=== PATIENT | male | born 1955 | race Caucasian/White ===

== ENCOUNTER 2021-10-26 14:23 | Inpatient (IN) ==
[2021-10-26] MEDS ORDERED: ALBUT/IPRATROP 3MG/0.5MG NEB 3 ML VIAL INH STA (14:57)
[2021-10-26] MEDS ORDERED: methylPREDNISolone 125 MG/2 ML VIAL IV STA ×2 (14:59→17:08)
[2021-10-26 15:17] LABS: Hematocrit (blood only) 44.4 % (42-52); Hemoglobin 15.3 g/dL (14.0-18.0); Mean Corpuscular Hemoglobin 30.8 pg (25-34); Mean Corpuscular Hgb Conc 34.5 g/dL (32-36); Mean Corpuscular Volume 89.5 fL (80-100); Mean Platelet Volume 9.3 fL (7.4-10.4); Platelet Count 296 K/uL (130-400); RDW Coefficient of Variation 13.3 % (11.5-14.5); RDW Standard Deviation 43.6 fL (36.4-46.3); Red Blood Count 4.96 M/uL (4.7-6.1); White Blood Count 22.19 K/uL (4.8-10.8)
--- NOTE | 2021-10-26 15:28 | Emergency Department Note ---
Impression & Plan Acute exacerbation of chronic obstructive pulmonary disease, Hypoxia, Lumbar contusion, Fall ED Provider Note NAME: GALO WAGONER AGE: 66 SEX: M : 1955 ARRIVES VIA: Ambulance INFORMANT: Patient, EMS ED PROVIDER(S): Brody Hendricks DO CHIEF COMPLAINT: Fall HPI: the patient is a 66-year-old male who was walking through the yard when he slipped and fell. The patient fell directly onto his back. He is complaining of low back pain. He called 911 and presented to the emergency department but he started also to develop very severe shortness of breath. He felt very diaphoretic. He states he has significant pain in his lower back but also complains of difficulty getting a deep breath. He denies having any fever. He is treated for COPD. He states he has been compliant with his usual medications. He does complain of cough which is nonproductive. He denies having any hemoptysis. He states the pain in his back is worse with any movement. He denies having any lower extremity swelling. He does not use tobacco products any further. ROS: See above HPI for pertinent positives & negatives. A total of 10 systems reviewed and were otherwise negative. PAST MEDICAL HISTORY: See Below PAST SURGICAL HISTORY: See Below FAMILY HISTORY: See Below SOCIAL HISTORY: See Below HOME MEDICATIONS: See Below ALLERGIES: See Below VITALS: See Below PHYSICAL EXAMINATION: GENERAL: The patient is awake and alert. The patient is very anxious appearing. He appears to be having some respiratory difficulty. EYES: The conjunctivae are clear. The pupils are round and reactive. EARS, NOSE, MOUTH AND THROAT: The nose is without any evidence of any deformity. NECK: The neck is nontender and supple. RESPIRATORY: Diminished breath sounds are noted throughout. Significant conversational dyspnea was appreciated. Pursed lip breathing was noted. CARDIOVASCULAR: Regular rate and rhythm noted there no murmurs rubs or gallops normal S1 normal S2. GASTROINTESTINAL: The abdomen is soft. Abdomen is nontender. BACK: There is diffuse tenderness through the lumbar spine. There is no step-off. Range of motion elicited pain. There was no tenderness appreciated in the upper spine including the thoracic spine. MUSCULOSKELETAL/EXTREMITIES: There is no evidence of gross deformity full range of motion is noted in the hips and shoulders. SKIN: There is no obvious evidence of any rash. There are no petechiae, pallor or cyanosis noted. NEUROLOGIC: Patient is awake alert and oriented x3 MEDICAL DECISION MAKING: The patient is a 66-year-old male who presented to emergency department after a fall. The patient fell backwards. He did have an injury to his back but mostly was here because of shortness of breath. He was hypoxic. His history and physical exam appear to be consistent with COPD at this time. He was treated with bronchodilator therapy and steroids. He was also given IV fluids. Given the degree of his hypoxia and respiratory distress [facility] They have agreed to evaluate the patient in the emergency department. He was reevaluated multiple times. On subsequent reevaluation was significantly improved. Triage Nursing notes reviewed. Prior medical records reviewed Vital Signs: reviewed and remarkable for initial hypoxia and tachycardia. Differential diagnosis: Reactive airway disease, pneumonia, pneumothorax, COPD, CHF, infections, cardiac ischemia, pulmonary embolism, musculoskeletal, gastrointestinal, as well as other pathologies. ER treatment provided: See below Diagnostics interpreted by me: ECG: EKG was obtained in the emergency department. My interpretation is sinus rhythm at 100 bpm. No PVCs were noted. Inferior and low lateral ST depressions were appreciated. An incomplete right bundle branch block pattern was noted. This was compared to a tracing from November [id number]. No changes were noted. Cardiac Monitoring: An order was placed for continuous cardiac monitoring. The monitor shows a rate of 108 bpm with sinus tachycardia. Laboratory studies: As stated above and show below. Imaging studies: See below Consultation(s): The case was discussed with Dr. Duke who [facility]. Past Med/Surg History Medical History (Updated 10/26/21 @ 18:54 by Brody Hendricks DO) Cardiac defibrillator in place Cardiomyopathy COPD (chronic obstructive pulmonary disease) Emphysema of lung Pneumonia Severe sepsis (01/13/14) Surgical History No pertinent past surgical history Family History Other Family history non-contributory Social History (Updated 10/26/21 @ 18:02 by FIDENCIO Coelho) Smoking Status: Former smoker Tobacco Type: Cigarettes packs per day: 2; Years Smoked: 30; Cigarettes Per Day: 20; Hx Alcohol Use: No marital status: current occupational status: retired Feels Safe at Home: Yes Allergies Allergies Allergy/AdvReac Type Severity Reaction Status Date / Time No Known Allergies Allergy Verified 10/26/21 14:36 Home Meds Home Medications Medication Instructions Recorded Confirmed carvedilol 6.25 mg tablet 3.125 mg PO BID 11/11/19 10/26/21 losartan 25 mg tablet 25 mg PO DAILY 11/11/19 10/26/21 spironolactone 25 mg tablet 12.5 mg PO DAILY 11/11/19 10/26/21 tiotropium bromide 2.5 2 puff INHALATION DAILY 11/11/19 10/26/21 mcg/actuation mist for inhalation (Spiriva Respimat) albuterol sulfate 2.5 mg INHALATION QID PRN 10/26/21 10/26/21 albuterol sulfate 90 mcg/actuation 2 puff INHALATION Q6H PRN 10/26/21 10/26/21 aerosol inhaler azithromycin 500 mg tablet 500 mg PO 3XWK 10/26/21 10/26/21 fluticasone 500 mcg-salmeterol 50 1 inh INHALATION BID 10/26/21 10/26/21 mcg/dose blistr powdr for inhalation (Wixela Inhub) Results & Data (ED) Vital Signs Vital Signs - 24 hr 10/26/21 14:32 10/26/21 14:41 10/26/21 15:00 Temperature 36.8 C Temperature Source Oral Pulse Rate 106 H 107 H 97 H Pulse Rate [Left Apical] Pulse Rate from SpO2 Sensor Pulse Rhythm [Left Apical] Pulse Strength [Left Apical] Respiratory Rate 36 H 34 H 35 H Respiratory Effort / Characteristics Accessory Muscle Use Labored Respiratory Depth Deep Respiratory Pattern Regular Blood Pressure 118/75 Blood Pressure [Right Arm] Blood Pressure Mean 89 Blood Pressure Mean [Right Arm] Blood Pressure Position [Right Arm] Pulse Oximetry 96 98 98 Oxygen Delivery Method Nasal Cannula Nasal Cannula Nasal Cannula Oxygen Flow Rate 3 2 2 Sepsis Recent Fever Within 48 Hours No Sepsis New/Unexplained Change in Mental Status N/A Sepsis Action Taken by Nursing No Action Required 10/26/21 15:12 10/26/21 15:24 10/26/21 16:00 Temperature Temperature Source Pulse Rate 106 H 97 H Pulse Rate [Left Apical] 102 H Pulse Rate from SpO2 Sensor 94 H Pulse Rhythm [Left Apical] Regular Pulse Strength [Left Apical] Normal Respiratory Rate 33 H 36 H 29 H Respiratory Effort / Characteristics Short of Breath Respiratory Depth Normal Respiratory Pattern Tachypnea Blood Pressure 107/74 97/70 L Blood Pressure [Right Arm] 107/74 Blood Pressure Mean 85 79 Blood Pressure Mean [Right Arm] 85 Blood Pressure Position [Right Arm] Sitting Pulse Oximetry 94 98 93 Oxygen Delivery Method Nasal Cannula Oxygen Flow Rate 2 Sepsis Recent Fever Within 48 Hours Sepsis New/Unexplained Change in Mental Status Sepsis Action Taken by Nursing 10/26/21 16:07 10/26/21 16:10 10/26/21 17:17 Temperature Temperature Source Pulse Rate Pulse Rate [Left Apical] 107 H 108 H Pulse Rate from SpO2 Sensor Pulse Rhythm [Left Apical] Regular Regular Pulse Strength [Left Apical] Normal Normal Respiratory Rate 32 H 26 H Respiratory Effort / Characteristics Short of Breath Non-Labored Non-Labored Respiratory Depth Shallow Normal Normal Respiratory Pattern Tachypnea Tachypnea Blood Pressure Blood Pressure [Right Arm] 97/68 L 113/74 Blood Pressure Mean Blood Pressure Mean [Right Arm] 77 87 Blood Pressure Position [Right Arm] Sitting Sitting Pulse Oximetry 93 94 Oxygen Delivery Method Room Air Room Air Oxygen Flow Rate Sepsis Recent Fever Within 48 Hours Sepsis New/Unexplained Change in Mental Status Sepsis Action Taken by Care Home Medications Current Medication List: was personally reviewed by me Laboratory Data Attestation: I reviewed the patient's lab results. Result diagrams: 10/26/21 15:10 10/26/21 15:10 Lab Results 10/26/21 10/26/21 10/26/21 Range/Units 15:10 15:10 15:15 WBC 22.19 H (4.8-10.8) K/uL RBC 4.96 (4.7-6.1) M/uL Hgb 15.3 (14.0-18.0) g/dL Hct 44.4 (42-52) % MCV 89.5 (80-100) fL MCH 30.8 (25-34) pg MCHC 34.5 (32-36) g/dL RDW Std Deviation 43.6 (36.4-46.3) fL RDW Coeff of Renee 13.3 (11.5-14.5) % Plt Count 296 (130-400) K/uL MPV 9.3 (7.4-10.4) fL Immature Gran % (Auto) 0.5 % Neut % (Auto) 89.8 % Lymph % (Auto) 6.4 % Villalba % (Auto) 3.2 % Eos % (Auto) 0.0 % Baso % (Auto) 0.1 % Neut # (Auto) 19.92 H (1.4-6.5) K/uL Lymph # (Auto) 1.43 (1.2-3.4) K/uL Villalba # (Auto) 0.71 H (0.11-0.59) K/uL Eos # (Auto) 0.00 (0-0.5) K/uL Baso # (Auto) 0.02 (0-0.2) K/uL Immature Gran # (Auto) 0.11 H (0.00-0.02) K/uL Polychromasia 1+ VBG pH (7.36-7.41) VBG pCO2 (38-50) mmHg VBG pO2 mmHg VBG HCO3 mmol/L VBG O2 Saturation % VBG Base Excess mEq/L Barometric Pressure mm/Hg Sodium 135 L (136-145) mmol/L Potassium 4.6 (3.5-5.1) mmol/L Chloride 100 (98-107) mmol/L Carbon Dioxide 26 (21-32) mmol/L Anion Gap 9 (3-11) BUN 19 (6-23) mg/dl Creatinine 0.86 (0.6-1.4) mg/dl Est Cr Clr Drug Dosing 75.2 ml/min Est GFR ( Amer) 104.0 ml/min Est GFR (Non-Af Amer) 89.7 ml/min BUN/Creatinine Ratio 22.1 H (10-20) Glucose 111 H (70-99(Fasting)) mg/dl Calcium 9.0 (8.5-10.1) mg/dl Total Bilirubin 2.3 H (0.2-1.0) mg/dl AST 19 (13-39) U/L ALT 22 (7-52) U/L Alkaline Phosphatase 51 (34-104) U/L Troponin I 0.05 H* (0-0.04) ng/ml Total Protein 6.7 (6.0-8.3) gm/dl Albumin 4.2 (3.4-5.0) gm/dl Globulin 2.5 (2.5-4.0) gm/dl Albumin/Globulin Ratio 1.7 (0.9-2) SARS-CoV-2, RNA, NAAT NEGATIVE (NEGATIVE) 10/26/21 Range/Units 17:50 WBC (4.8-10.8) K/uL RBC (4.7-6.1) M/uL Hgb (14.0-18.0) g/dL Hct (42-52) % MCV (80-100) fL MCH (25-34) pg MCHC (32-36) g/dL RDW Std Deviation (36.4-46.3) fL RDW Coeff of Renee (11.5-14.5) % Plt Count (130-400) K/uL MPV (7.4-10.4) fL Immature Gran % (Auto) % Neut % (Auto) % Lymph % (Auto) % Villalba % (Auto) % Eos % (Auto) % Baso % (Auto) % Neut # (Auto) (1.4-6.5) K/uL Lymph # (Auto) (1.2-3.4) K/uL Villalba # (Auto) (0.11-0.59) K/uL Eos # (Auto) (0-0.5) K/uL Baso # (Auto) (0-0.2) K/uL Immature Gran # (Auto) (0.00-0.02) K/uL Polychromasia VBG pH 7.41 (7.36-7.41) VBG pCO2 41 (38-50) mmHg VBG pO2 39 mmHg VBG HCO3 26 mmol/L VBG O2 Saturation 73.1 % VBG Base Excess 1.0 mEq/L Barometric Pressure 725.8 mm/Hg Sodium (136-145) mmol/L Potassium (3.5-5.1) mmol/L Chloride (98-107) mmol/L Carbon Dioxide (21-32) mmol/L Anion Gap (3-11) BUN (6-23) mg/dl Creatinine (0.6-1.4) mg/dl Est Cr Clr Drug Dosing ml/min Est GFR ( Amer) ml/min Est GFR (Non-Af Amer) ml/min BUN/Creatinine Ratio (10-20) Glucose (70-99(Fasting)) mg/dl Calcium (8.5-10.1) mg/dl Total Bilirubin (0.2-1.0) mg/dl AST (13-39) U/L ALT (7-52) U/L Alkaline Phosphatase (34-104) U/L Troponin I (0-0.04) ng/ml Total Protein (6.0-8.3) gm/dl Albumin (3.4-5.0) gm/dl Globulin (2.5-4.0) gm/dl Albumin/Globulin Ratio (0.9-2) SARS-CoV-2, RNA, NAAT (NEGATIVE) Administered Medications Acetaminophen (Acetaminophen 325 Mg Tab) 650 mg PO Q6 [place] Stop: 11/26/21 06:59 Last Admin: 10/26/21 18:36 Dose: Not Given Documented by: [id number] Discontinued Medications Acetaminophen (Acetaminophen 325 Mg Tab) 650 mg PO NOW STA Stop: 10/26/21 17:36 Last Admin: 10/26/21 17:55 Dose: 650 mg Documented by: [id number] Albuterol (Albut/Ipratrop 3mg/0.5mg Neb 3 Ml Vial) 3 ml INH NOW STA; Protocol Stop: 10/26/21 14:58 Last Admin: 10/26/21 15:18 Dose: 3 ml Documented by: [id number] Albuterol (Albut/Ipratrop 3mg/0.5mg Neb 3 Ml Vial) 3 ml NEB NOW STA; Protocol Stop: 10/26/21 18:05 Last Admin: 10/26/21 18:36 Dose: 3 ml Documented by: [id number] Aspirin (Aspirin Chew 324 Mg) 324 mg PO NOW STA Stop: 10/26/21 15:45 Last Admin: 10/26/21 16:06 Dose: 324 mg Documented by: [id number] Ioversol (Optiray 320 125ml) 118 ml IV ONCE ONE Stop: 10/26/21 18:49 Last Admin: 10/26/21 18:49 Dose: 118 ml Documented by: [id number] Ketorolac Tromethamine (Ketorolac Tromethamine 15 Mg/Ml Vial) 15 mg IV NOW ONE Stop: 10/26/21 17:34 Last Admin: 10/26/21 17:55 Dose: 15 mg Documented by: [id number] Methylprednisolone (Methylprednisolone 125 Mg/2 Ml Vial) 60 mg IV NOW STA Stop: 10/26/21 15:00 Last Admin: 10/26/21 15:18 Dose: 60 mg Documented by: [id number] Methylprednisolone (Methylprednisolone 125 Mg/2 Ml Vial) 60 mg IV NOW STA Stop: 10/26/21 17:09 Last Admin: 10/26/21 17:55 Dose: 60 mg Documented by: [id number] Imaging Data Radiologist's Impression: Chest X-Ray 10/26/21 14:53 XR chest 1V portable HISTORY: Wheezing. Atypical chest pain. short of breath COMPARISON: Chest 11/11/2019. FINDINGS: Severe emphysema is again noted. Increased markings at the lung bases persist and favors vascular crowding from the emphysema. Otherwise, no focal lung consolidations to suggest pneumonia. No evidence for pulmonary edema. The left-sided single lead pacemaker/defibrillator. The heart is normal in size. No pleural effusions. No pneumothorax. There is a 5 mm nodule within the right upper lobe. This remains unchanged. IMPRESSION: 1. No focal lung consolidations to suggest pneumonia. 2. Severe emphysema. 3. A 5 mm right upper lobe nodule, unchanged. ACT 112: Negative or not required by law. Electronically signed by: Willy Lizarraga M.D. 10/26/2021 3:27 PM Lumbar Spine X-Ray 10/26/21 15:27 XR lumbar spine 2-3V CLINICAL HISTORY: Status post fall on ice with low back pain. COMPARISON STUDY: No previous studies for comparison. TECHNIQUE: 3 Views of the lumbar spine FINDINGS: Bones: There is an anterior wedge deformity present of the L1 vertebral body. However, this has the appearance of an old fracture. There is no evidence for definite acute fracture or malalignment. The heights of the remaining lumbar vertebral bodies are maintained. There are no lytic or blastic lesions present. Disc spaces: Mild to moderate disc space narrowing is present from L2 through S1 with endplate cirrhosis and osteophyte formation. Facet joints: Degenerative facet joint disease is also seen throughout the lumbar spine. Soft tissues: The paraspinal soft tissues are within normal limits. IMPRESSION: 1. Evidence for old anterior wedge deformity of L1. No acute abnormality. 2. Degenerative disc and degenerative facet joint disease. ACT 112: Negative or not required by law. Electronically signed by: Isaac Solis M.D. 10/26/2021 4:33 PM Discharge Plan Visit Data Chief Complaint: Shortness of Breath/Dyspnea Stated Complaint: SOB ED Provider: Brody Hendricks ED Midlevel Provider: Kash Gar Discharge Problem: Acute exacerbation of chronic obstructive pulmonary disease, Hypoxia, Lumbar contusion, Fall Patient Disposition: Being Evaluated by Hospitalist Forms Stand Alone Forms: My [facility] Prescriptions Prescriptions: No Action carvedilol 6.25 mg Tablet 3.125 mg PO BID RF: 0 spironolactone 25 mg Tablet 12.5 mg PO DAILY RF: 0 losartan 25 mg Tablet 25 mg PO DAILY RF: 0 Spiriva Respimat 2.5 mcg/actuation Mist 2 puff INHALATION DAILY RF: 0 albuterol sulfate 2.5 mg /3 mL (0.083 %) Solution For Nebulization 2.5 mg INHALATION QID PRN (Reason: Shortness Of Breath) RF: 0 fluticasone propion-salmeterol [Wixela Inhub] 500-50 mcg/dose Blister With Device 1 inh INHALATION BID RF: 0 albuterol sulfate 90 mcg/actuation Hfa Aerosol Inhaler 2 puff INHALATION Q6H PRN (Reason: Shortness Of Breath) RF: 0 azithromycin 500 mg Tablet 500 mg PO 3XWK RF: 0 Referrals Referrals: PCP,NO [Primary Care Provider] -
[2021-10-26 15:38] LABS: Albumin Globulin Ratio 1.7 (0.9-2); Albumin Level 4.2 gm/dl (3.4-5.0); BUN Creatinine Ratio 22.1 (10-20); Bilirubin,Total 2.3 mg/dl (0.2-1.0); Creatinine Clr Calc Pharmacy 75.2 ml/min; Est GFR (Non-African American) 89.7 ml/min; Globulin 2.5 gm/dl (2.5-4.0); Potassium 4.6 mmol/L (3.5-5.1); Total Protein 6.7 gm/dl (6.0-8.3)
[2021-10-26 15:40] LABS: Basophils # (auto) 0.02 K/uL (0-0.2); Basophils % (auto) 0.1 %; Immature Granulocytes # (auto) 0.11 K/uL (0.00-0.02); Immature Granulocytes % (auto) 0.5 %; Lymphocytes # (auto) 1.43 K/uL (1.2-3.4); Lymphocytes % (auto) 6.4 %; Monocytes # (auto) 0.71 K/uL (0.11-0.59); Monocytes % (auto) 3.2 %; Neutrophils # (auto) 19.92 K/uL (1.4-6.5); Neutrophils % (auto) 89.8 %; Polychromasia 1+
[2021-10-26 15:41] LABS: Troponin I 0.05 ng/ml (0-0.04)
[2021-10-26] MEDS ORDERED: ASPIRIN CHEW 324 MG PO STA (15:44)
--- NOTE | 2021-10-26 16:34 | XRay Report ---
XR lumbar spine 2-3V CLINICAL HISTORY: Status post fall on ice with low back pain. COMPARISON STUDY: No previous studies for comparison. TECHNIQUE: 3 Views of the lumbar spine FINDINGS: Bones: There is an anterior wedge deformity present of the L1 vertebral body. However, this has the a ppearance of an old fracture. There is no evidence for definite acute fracture or malalignment. The h eights of the remaining lumbar vertebral bodies are maintained. There are no lytic or blastic lesions present. Disc spaces: Mild to moderate disc space narrowing is present from L2 through S1 with endplate cirrho sis and osteophyte formation. Facet joints: Degenerative facet joint disease is also seen throughout the lumbar spine. Soft tissues: The paraspinal soft tissues are within normal limits. IMPRESSION: 1. Evidence for old anterior wedge deformity of L1. No acute abnormality. 2. Degenerative disc and degenerative facet joint disease. ACT 112: Negative or not required by law. Electronically signed by: Isaac Solis M.D. 10/26/2021 4:33 PM
--- NOTE | 2021-10-26 17:19 | Emergency Department Note ---
ED Visit Note Patient seen with Dr. Hendricks, please see his note for details.
[2021-10-26] MEDS ORDERED: KETOROLAC TROMETHAMINE 15 MG/ML VIAL IV ONE (17:33)
[2021-10-26] MEDS ORDERED: ACETAMINOPHEN 325 MG TAB PO STA (17:35)
--- NOTE | 2021-10-26 17:37 | History & Physical Report ---
Date of Service October 26, 2021 Assessment & Plan (1) Back pain due to injury: Plan: Lumbar/flank back pain following slip and fall on ice - Xray as above with reported as old wedge resection - ? rib fracture vs. renal contusion vs. muscular injury - Toradol 15mg IV x1 now, Tylenol scheduled for 24 hours, Lidoderm patches - UA eval for hematuria - CT scan w/o contrast abd/pelvis- - Compression Deformities T11-T8- age indeterminant- no pinpoint pain on spine i tself- Patient reports history of ~ 3years ago injuring while digging a hole with pain down through his back and into his legs. Not present at this time. (2) COPD (chronic obstructive pulmonary disease): Plan: COPD with acute dyspnea - At this time does not appear to be an acute exacerbation causing his dyspnea, but until pain controlled, can't rule this out - Poor insipiration leading to decrease breath sounds, but with expiratory wheezing bilateral - VBG with normal PH-7.41, normal Co2-41 and HCO3 28 - Continue Methyl pred 40mg IV q8 hour - Scheduled nebulizers for 24 hours - Albuterol/Atrovent neb now - Continue his TID Azithromycin 500mg - no change - Continue Spiriva - Continue Fluticasone (3) Tachypnea: Plan: Tachypnea with Tachycardia- not greatly relieved with - pain medication - CTA PE protocol of the chest - r/o PE- pulmonary contusion- Negative for both - BIPAP/CPAP- 10/5 or CPAP 5/8 whichever patient is able to tolerate better- currently he is on BiPAP and RR decreased to mid teens- 20s. - Follow overnight- he can take off and use for relief of tachypnea and dyspnea (4) Elevated troponin I level: Plan: Likely demand from pain, tachypnea - Trend Troponin - ECG in morning - received ASA 324 mg in EMD - Continue BB (5) Cardiomyopathy: Plan: Chronic- unsure of etiology - Single lead device - ECHO 2013 with EF 40-45% as per HPI - Continue Carvedilol - Continue ARB - Continue Spironolactone (6) Cardiac defibrillator in place: Plan: Single lead device- reports no recent discharges (7) Leukocytosis: Plan: Nuetrophil predominant- likely secondary from fall yesterday - no infectious symptoms or complaints - Afebrile - Follow temperature curve, symptoms - UA pending (8) Acute respiratory failure with hypoxia: History of Present Illness Chief Complaint: fall, difficulty breathing Primary Care Provider: EDUARDA PCP 66 YOM with past medical history of: COPD with severe emphysema, HTN, AICD- single lead, HFrEF, cardiomyopathy. Patient comes to the EMD today for complaints of lower back pain and dyspnea. The pain occurred yesterday as he was going to check on his dog, and slipped on the ice landing on his back, which knocked the wind out of him and he had to lay on the ground a bit to catch his breath before getting up. This patient is dyspneic with shallow breathing with expiratory wheezing. The patient states that he feels short of breath because it hurts when he breathes in. The pain is located on his left side and lower back to hip, hurts when he takes a deep breath in or moves. There is no pain on his spine, but off his paraspinous muscle and SI joint to lower ribs. He denies coughing up any blood and/or difficulty urinating, but urine has been darker since yesterday. For his dyspnea he has only had an increase in his neb use and inhalers over the past 24 hours because of above pain causing dyspnea. He is not on oxygen at home, is not on any oxygen now and currently isn't hypoxic. He reports trying some "old pain medicine that he had left over from previous prescription, but is unsure of what it was or when prescribed. Patient endorses some right center chest burning pain that comes and goes. He describes this as his normal GERD pain, which he states is no different than his normal. He had a Troponin I drawn in the EMD and is at 0.05. His ECG is unchanged. In the EMD the patient had routine CXR and lumbar/sacral x-ray, was given 60mg IV methylpred- followed by another 60mg IV Methlypred for his wheezing, he was given 1 albuterol nebulizer and an aspirin. He had routine labs performed that included Troponin I as above, which revealed a leukocytosis that is neutrophil predominant. Patient will be admitted for pain control, further evaluation of his left sided pain and dyspnea, trending Troponin I, and follow his COPD/respiratory status. Patient had is AICD placed at [facility] for what he reports as fast and slow heart rates. His last ECHO that is available here is from 2013 with EF 0-45% and cardiomyopathy with marked hypokinesis of the anterior and anteroseptal curtis with mild global hypokinesis. COVID NAAT test on admission is: NEGATIVE Allergies Allergy/AdvReac Type Severity Reaction Status Date / Time No Known Allergies Allergy Verified 10/26/21 14:36 Home Medications Medication Instructions Recorded Confirmed Type carvedilol 6.25 mg tablet 3.125 mg PO BID 11/11/19 10/26/21 History losartan 25 mg tablet 25 mg PO DAILY 11/11/19 10/26/21 History spironolactone 25 mg tablet 12.5 mg PO DAILY 11/11/19 10/26/21 History tiotropium bromide 2.5 2 puff INHALATION DAILY 11/11/19 10/26/21 History mcg/actuation mist for inhalation (Spiriva Respimat) albuterol sulfate 2.5 mg INHALATION QID PRN 10/26/21 10/26/21 History albuterol sulfate 90 mcg/actuation 2 puff INHALATION Q6H PRN 10/26/21 10/26/21 History aerosol inhaler azithromycin 500 mg tablet 500 mg PO 3XWK 10/26/21 10/26/21 History fluticasone 500 mcg-salmeterol 50 1 inh INHALATION BID 10/26/21 10/26/21 History mcg/dose blistr powdr for inhalation (Wixela Inhub) prednisone 20 mg tablet 40 mg PO DAILY 4 Days #8 tab 10/27/21 Rx Past Med/Surg History Medical History Cardiac defibrillator in place Cardiomyopathy COPD (chronic obstructive pulmonary disease) Emphysema of lung Pneumonia Severe sepsis (01/13/14) Surgical History No pertinent past surgical history Family History Other Family history non-contributory Social History Smoking Status: Former smoker Tobacco Type: Cigarettes packs per day: 2; Years Smoked: 30; Cigarettes Per Day: 20; Smoking End Date: 2012; Second Hand Exposure: No; Tobacco Cessation Education Requested by Patient: No Hx Alcohol Use: No Hx Substance Use: No Preferred Language: Czech Communication Ability: Effective Undercutter Operator Required: No Beliefs That Will Affect Care: None marital status: Current Living Situation: Family Current Living Situation Comment: Cousin current occupational status: retired Other Information That Helps Us Care for You: No Feels Safe at Home: Yes Safety Concerns: Feels Safe At This Time Assistive Devices: Glasses Review of Systems Review of Systems: REVIEW OF SYSTEMS: Constitutional: No fever, sweats or chills Eyes: No diplopia, no worsening or blurred vision ENT: normal hearing, no trouble swallowing Respiratory: (+) dyspnea, No cough, sputum Cardiovascular: (+) burning, No anginal pain, tightness or palpitations Abdomen: No pain, nausea, vomiting, diarrhea or constipation Musculoskeletal: (+) left sided back/flank pain, NO calf pain, swelling Neurologic: No weakness, numbness/tingling, or balance problems Psychiatric: No anxiety or depression Skin: No rash or itch Physical Exam Physical Exam: PHYSICAL EXAM: General: awake, alert, no apparent distress Head: Normocephalic, atraumatic ENT: PERRLA, EOMI, no pharyngeal exudate, mucous membranes moist Neuro: AAO x 3, speech clear and appropriate, strength intact bilaterally 5/5, sensation intact and equal all extremities and dermatomes, no pronator drift Chest: equal rise and fall of the chest, tachypnea with using abdominal muscles, expiratory wheezing bialteral with decreased air movement in the bases, on RA Cardiac: Regular rate and rhythm, telemetry reviewed, skin warm dry, cap refill <3 seconds, peripheral pulses +2 no JVD, no edema GI: NABS x 4 quadrants, soft, nontender to palpation, no rebound, guarding or tenderness : Spontaneously voiding, no pain, no CVA tenderness, MSK: no pain on center line of back, left sided pain to paraspinus below last rib to SI joint, pain at left upper sacrum, muscles tense on that side Psych: Normal mood and affect Skin: no rash or erythema Results & Data Results & Data ([facility]) Vital Signs (Past 12 Hours) Vital Signs Temp Pulse Pulse Resp BP BP Pulse Ox 10/26/21 17:17 108 H 26 H 113/74 94 10/26/21 16:10 107 H 32 H 97/68 L 93 10/26/21 16:00 97 H 29 H 97/70 L 93 10/26/21 15:24 102 H 36 H 107/74 98 10/26/21 15:12 106 H 33 H 107/74 94 10/26/21 15:00 97 H 35 H 98 10/26/21 14:41 107 H 34 H 98 10/26/21 14:32 36.8 C 106 H 36 H 118/75 96 Laboratory Results Abnormal lab results 10/26/21 10/26/21 Range/Units 15:10 15:10 WBC 22.19 H (4.8-10.8) K/uL Neut # (Auto) 19.92 H (1.4-6.5) K/uL Beckham # (Auto) 0.71 H (0.11-0.59) K/uL Immature Gran # (Auto) 0.11 H (0.00-0.02) K/uL Sodium 135 L (136-145) mmol/L BUN/Creatinine Ratio 22.1 H (10-20) Glucose 111 H (70-99(Fasting)) mg/dl Total Bilirubin 2.3 H (0.2-1.0) mg/dl Troponin I 0.05 H* (0-0.04) ng/ml Diagnostic Findings Chest X-Ray 10/26/21 14:53 XR chest 1V portable HISTORY: Wheezing. Atypical chest pain. short of breath COMPARISON: Chest 11/11/2019. FINDINGS: Severe emphysema is again noted. Increased markings at the lung bases persist and favors vascular crowding from the emphysema. Otherwise, no focal lung consolidations to suggest pneumonia. No evidence for pulmonary edema. The left-sided single lead pacemaker/defibrillator. The heart is normal in size. No pleural effusions. No pneumothorax. There is a 5 mm nodule within the right upper lobe. This remains unchanged. IMPRESSION: 1. No focal lung consolidations to suggest pneumonia. 2. Severe emphysema. 3. A 5 mm right upper lobe nodule, unchanged. ACT 112: Negative or not required by law. Electronically signed by: Willy Lizarraga M.D. 10/26/2021 3:27 PM Lumbar Spine X-Ray 10/26/21 15:27 XR lumbar spine 2-3V CLINICAL HISTORY: Status post fall on ice with low back pain. COMPARISON STUDY: No previous studies for comparison. TECHNIQUE: 3 Views of the lumbar spine FINDINGS: Bones: There is an anterior wedge deformity present of the L1 vertebral body. However, this has the appearance of an old fracture. There is no evidence for definite acute fracture or malalignment. The heights of the remaining lumbar vertebral bodies are maintained. There are no lytic or blastic lesions present. Disc spaces: Mild to moderate disc space narrowing is present from L2 through S1 with endplate cirrhosis and osteophyte formation. Facet joints: Degenerative facet joint disease is also seen throughout the lum bar spine. Soft tissues: The paraspinal soft tissues are within normal limits. IMPRESSION: 1. Evidence for old anterior wedge deformity of L1. No acute abnormality. 2. Degenerative disc and degenerative facet joint disease. ACT 112: Negative or not required by law. Electronically signed by: Isaac Solis M.D. 10/26/2021 4:33 PM Medications Administered Home Medications carvedilol 6.25 mg tablet 3.125 mg PO BID 11/11/19 [History Confirmed 10/26/21] losartan 25 mg tablet 25 mg PO DAILY 11/11/19 [History Confirmed 10/26/21] spironolactone 25 mg tablet 12.5 mg PO DAILY 11/11/19 [History Confirmed 10/26/21] tiotropium bromide 2.5 mcg/actuation mist for inhalation (Spiriva Respimat) 2 puff INHALATION DAILY 11/11/19 [History Confirmed 10/26/21] albuterol sulfate 2.5 mg INHALATION QID PRN 10/26/21 [History Confirmed 10/26/21] albuterol sulfate 90 mcg/actuation aerosol inhaler 2 puff INHALATION Q6H PRN 10/26/21 [History Confirmed 10/26/21] azithromycin 500 mg tablet 500 mg PO 3XWK 10/26/21 [History Confirmed 10/26/21] fluticasone 500 mcg-salmeterol 50 mcg/dose blistr powdr for inhalation (Wixela Inhub) 1 inh INHALATION BID 10/26/21 [History Confirmed 10/26/21] Active Medications Acetaminophen (Acetaminophen 325 Mg Tab) 650 mg PO Q6 [facility] Stop: 11/26/21 06:59 Albuterol (Albut/Ipratrop 3mg/0.5mg Neb 3 Ml Vial) 3 ml NEB NOW STA; Protocol Stop: 10/26/21 18:05 Methylprednisolone (Methylprednisolone 40 Mg/Ml Vial) 40 mg IV Q8 [facility] Stop: 11/25/21 21:59 Discontinued Medications Acetaminophen (Acetaminophen 325 Mg Tab) 650 mg PO NOW STA Stop: 10/26/21 17:36 Last Admin: 10/26/21 17:55 Dose: 650 mg Documented by: [id number] Albuterol (Albut/Ipratrop 3mg/0.5mg Neb 3 Ml Vial) 3 ml INH NOW STA; Protocol Stop: 10/26/21 14:58 Last Admin: 10/26/21 15:18 Dose: 3 ml Documented by: [id number] Aspirin (Aspirin Chew 324 Mg) 324 mg PO NOW STA Stop: 10/26/21 15:45 Last Admin: 10/26/21 16:06 Dose: 324 mg Documented by: [id number] Ketorolac Tromethamine (Ketorolac Tromethamine 15 Mg/Ml Vial) 15 mg IV NOW ONE Stop: 10/26/21 17:34 Last Admin: 10/26/21 17:55 Dose: 15 mg Documented by: [id number] Methylprednisolone (Methylprednisolone 125 Mg/2 Ml Vial) 60 mg IV NOW STA Stop: 10/26/21 15:00 Last Admin: 10/26/21 15:18 Dose: 60 mg Documented by: [id number] Methylprednisolone (Methylprednisolone 125 Mg/2 Ml Vial) 60 mg IV NOW STA Stop: 10/26/21 17:09 Last Admin: 10/26/21 17:55 Dose: 60 mg Documented by: [id number] Additional Comments: Normal sinus rhythm Right bundle branch block Abnormal ECG When compared with ECG of 11-NOV-2019 14:37, Right bundle branch block has replaced Incomplete right bundle branch block Nonspecific T wave abnormality no longer evident in Inferior leads Nonspecific T wave abnormality no longer evident in Lateral leads Code Status & VTE Plan Code Status CODE: FULL VTE: SCDS, Ambulation VTE Prophylaxis Plan VTE Prophylaxis will be ordered: Yes Supervising Physician Co-Signing Physician Notes Attending Attestation and Admit Note: Pt seen/examined, chart reviewed, care plan d/w FIDENCIO Latif. I agree with the rogers components of his documentation. 66yo male with severe COPD, cardiomyopathy / chronic systolic CHF, CAD (??), and ICD presenting with severe left back/left flank pain after slipping on ice at his home yesterday resulting in a fall. Since then he has had progressive dyspnea with minimal cough. He has occasional chest discomfort but most recent episode was while drinking coffee. He denies exertional chest pain. Denies recent illness or prodromal runny nose/URI symptoms. During my assessment he denied any pain. He did state that his breathing was getting worse despite a recent neb treatment. PMH/PSH/allergies/meds/sochx/famhx - reviewed afebrile, mildly tachy, tachypneic gen - thin, acute distress (increased work of breathing) neck - no JVD mouth - MMM heart - heart tones severely diminished/barely audible, s1 s2 lungs - very poor air movement, tachypnea, retractions, accessory muscle use, wheezes b/l; no rales abd - soft NT ND BS+ back - no tenderness to palpation along the c-spine, t-spine, or l-spine; he does have paraspinal pain in the left lumbar region; he has mild left inferior costal margin pain to palpation; there is modest swelling over the muscles of the left paraspinal region vs the right ext - no edema labs reviewed (WBC >20, etc) cxr reviewed CTs pending EKG - my reading - NSR, RBBB, no ST changes u/a pending COVID neg A/P: 1. accidental/mechanical fall (slipped on ice); no preceding near- syncope/syncope, chest pain, etc. 2. left posterior rib pain/flank pain/lumbar paraspinal pain - CTA chest, CT a/p pending to r/o rib fractures, organ injury, renal injury, etc 3. COPD with exacerbation - may just be a coincidence that this happened in the setting of his recent fall, OR - his pain from the fall led to poor inspiratory effort lending itself to COPD flare 4. acute hypoxic resp failure 2nd to #3 5. elevated troponin - scantly elevated; no ST changes on EKG; would trend, but suspect the troponin is myocardial demand ischemia 2nd to #4 and #3 (or even the stress of #1). [id number] his prior echo showed wall motion abnormalities. Need to be sure the elevated troponin is not indicative of recent ACS. When patient was asked about prior CAD history, IN/stents, etc he could give very little details. Would need to [facility] to determine if he has ever had cardiac catheterization, etc. await CTs pain control f/u on urinalysis steroids for #3 bronchodilators recommend placing on BIPAP due to the amount of distress he is having Ryland Duke MD PG Care Time/CCT Total # of Minutes Spent Total Time Spent with Patient: Total time spent is greater than 50% in coordination of care (as documented) at patient's floor/unit and/or counseling patient: Coding Level of Care Code 61801 Initial Inpt Care Lvl 3 Diagnoses Back pain due to injury M54.9 COPD (chronic obstructive pulmonary disease) J44.9 Cardiomyopathy I42.[address] Z95.810 Elevated troponin I level R77.8 Leukocytosis D72.829 Tachypnea R06.82 Acute respiratory failure with hypoxia J96.01
[2021-10-26] MEDS ORDERED: ACETAMINOPHEN 325 MG TAB PO SCH (18:00)
[2021-10-26 18:01] LABS: Oxygen Saturation VBG 73.1 %; pH VBG 7.41 (7.36-7.41)
[2021-10-26] MEDS ORDERED: ALBUT/IPRATROP 3MG/0.5MG NEB 3 ML VIAL NEB STA (18:04)
[2021-10-26] MEDS ORDERED: OPTIRAY 320 125ml IV ONE (18:48)
--- NOTE | 2021-10-26 19:02 | CT Scan Report ---
CT angio chest PE protocol CLINICAL HISTORY: PE TECHNIQUE: Multidetector row helical CT of the chest was performed. Coronal and sagittal reformations were obtained. Coronal and sagittal MIPS were obtained from the axial data set and were submitted fo r review. Automated dose lowering techniques and/or adjustment according to patient size were utiliz ed for this exam. Comparison: None available at the time of this dictation. FINDINGS: Lungs and pleura: Severe emphysematous changes are seen. No suspicious pulmonary nodules are seen. Heart and pericardium: Heart size is normal. No pericardial effusion. Vessels: No evidence of pulmonary embolism. Mediastinum and colette: Unremarkable. Chest wall and lower neck: Unremarkable. Abdomen: A hiatal hernia is seen. Bones: Degenerative changes in the thoracic spine. Compression deformities are seen, which are new at T11 and T8 for chronic at T12. IMPRESSION: 1. No evidence of pulmonary embolism. 2. Severe emphysematous changes. 3. Compression deformities at T11 and T8 are age indeterminate. Correlation with point tenderness is recommended. ACT 112: Negative or not required by law. Electronically signed by: Akash Christianson M.D. 10/26/2021 7:00 PM
--- NOTE | 2021-10-26 19:07 | CT Scan Report ---
CT abd pelvis wo con CLINICAL HISTORY: fall on ice-left sided back/flank pain- TECHNIQUE: Helical axial images of the abdomen and pelvis were obtained. Automated dose lowering tech niques and/or adjustment according to patient size were utilized for this exam. This exam was perfor med without intravenous contrast. COMPARISON: None available at the time of this dictation. FINDINGS: Lower chest: For findings above the diaphragm, please see CT chest performed same day. Liver: Unremarkable. No focal lesions are seen. Gallbladder and biliary tree: No calcified gallstones. Normal caliber wall. No intra- or extrahepatic biliary ductal dilation. Pancreas: Unremarkable, no focal lesions. Spleen: Unremarkable. Adrenals: Unremarkable. Kidneys and ureters: Perinephric stranding is noted bilaterally. Bladder: Minimally hyperdense material is noted in the bladder. Reproductive organs: Prostatomegaly is seen. Bowel: Unremarkable. Lymph nodes Retroperitoneal: Unremarkable. Mesenteric: Subcentimeter lymph nodes are noted. Pelvic: Unremarkable. Peritoneum: Normal. Vessels: Atherosclerotic calcifications are seen. Abdominal wall: Right fat-containing inguinal hernia. Bones: Degenerative changes in the visualized spine. Please see CT thorax with compression deformitie s in the thorax. IMPRESSION: 1. No evidence of acute abnormality and in particular no evidence of fracture. 2. Prostatomegaly. 3. Hyperdense material noted in the bladder, this may be artifactual, correlation with urinalysis is recommended. ACT 112: Negative or not required by law. Electronically signed by: Akash Christianson M.D. 10/26/2021 7:06 PM
[2021-10-26] MEDS ORDERED: ALBUTEROL HFA 8 GM INHALER INH PRN (21:21)
[2021-10-26] MEDS: ALBUTEROL 0.083% NEBU SOLN 3 ML VIAL INH SCH (21:23)
[2021-10-26] MEDS ORDERED: methylPREDNISolone 40 MG in SYRINGE 0 ML IV SCH (22:00)
[2021-10-26] MEDS: carvediloL 3.125 MG TAB PO SCH (22:15)
[2021-10-26] MEDS: LIDOCAINE 5% 1 PATCH TD SCH (22:16)
[2021-10-26] MEDS: ACETAMINOPHEN 325 MG TAB PO SCH (23:08)
[2021-10-27] MEDS: ALBUTEROL 0.083% NEBU SOLN 3 ML VIAL INH SCH ×3 (00:27→11:50)
[2021-10-27] MEDS ORDERED: methylPREDNISolone 40 MG in SYRINGE 0 ML IV SCH (06:00)
[2021-10-27 06:06] LABS: Troponin I 0.03 ng/ml (0-0.04)
[2021-10-27] MEDS: ACETAMINOPHEN 325 MG TAB PO SCH ×2 (06:08→11:32)
[2021-10-27 06:09] LABS: Calcium 8.7 mg/dl (8.5-10.1); Creatinine Clr Calc Pharmacy 62.2 ml/min; Est GFR (African American) 85.7 ml/min; Est GFR (Non-African American) 73.9 ml/min; Magnesium 1.8 mg/dl (1.7-2.4); Potassium 4.2 mmol/L (3.5-5.1)
[2021-10-27 06:23] LABS: Basophils # (auto) 0.01 K/uL (0-0.2); Basophils % (auto) 0.1 %; Hemoglobin 13.9 g/dL (14.0-18.0); Immature Granulocytes # (auto) 0.06 K/uL (0.00-0.02); Immature Granulocytes % (auto) 0.3 %; Mean Corpuscular Hemoglobin 30.3 pg (25-34); Mean Corpuscular Hgb Conc 33.9 g/dL (32-36); Mean Corpuscular Volume 89.3 fL (80-100); Mean Platelet Volume 9.9 fL (7.4-10.4); Monocytes # (auto) 0.22 K/uL (0.11-0.59); Monocytes % (auto) 1.3 %; Neutrophils % (auto) 94.3 %; Platelet Count 301 K/uL (130-400); RDW Coefficient of Variation 13.3 % (11.5-14.5); RDW Standard Deviation 43.6 fL (36.4-46.3); Red Blood Count 4.59 M/uL (4.7-6.1); White Blood Count 17.59 K/uL (4.8-10.8)
[2021-10-27] MEDS: carvediloL 3.125 MG TAB PO SCH (08:11)
[2021-10-27] MEDS: SPIRONOLACTONE 12.5 MG TAB PO SCH ×2 (08:12→08:14)
--- NOTE | 2021-10-27 08:22 | Communication Note ---
Date of Service: October 27, 2021 Informed at 6:24AM about transient vtach x several beats on nurse monitoring, but on PCU monitor, there was concern about afib. I reviewed the telemetry segment and it looks somewhat irregular. Patient does have PVCss. I have ordered a repeat ecg and ordered Mg repletion as it was 1.8 this AM. K was >4.0.
[2021-10-27] MEDS ORDERED: LOSARTAN POTASSIUM 25 MG TAB PO SCH (09:00)
[2021-10-27] MEDS ORDERED: UMECLIDINIUM BROMIDE 62.5MCG/BLISTER 7 PUFFS/INHALER INH SCH (09:00)
[2021-10-27] MEDS ORDERED: FLUTICASONE/VILANTEROL 200/25MCG 14 PUFFS/INHALER INH SCH (09:00)
[2021-10-27 09:06] LABS: Appearance Urine Clear (Clear); Bacteria Urine Automated Negative (Negative); Blood Urine Negative (Negative); Color Urine Dark Yellow; Glucose Urine UA Negative (Negative); Ketones Urine Trace (Negative); Leukocyte Esterase Urine Negative (Negative); Nitrite Urine Negative (Negative); Protein Urine Trace (Negative); RBC Urine Automated 0-4 /hpf (0-4); Specific Gravity Urine > 1.045 (1.000-1.030); Urobilinogen Urine Negative (Negative); pH Urine 5.5 (4.5-7.5)
[2021-10-27 09:07] LABS: Bilirubin Urine 1+ (Negative)
[2021-10-27] MEDS: MAGNESIUM SULFATE / D5W 1 GM/100 ML BAG IV SCH ×2 (09:38→11:32)
--- NOTE | 2021-10-27 16:45 | Discharge Summary ---
Date of Service October 27, 2021 Admission HPI Per Admitting Provider 66 YOM with past medical history of: COPD with severe emphysema, HTN, AICD- single lead, HFrEF, cardiomyopathy. Patient comes to the EMD today for complaints of lower back pain and dyspnea. The pain occurred yesterday as he was going to check on his dog, and slipped on the ice landing on his back, which knocked the wind out of him and he had to lay on the ground a bit to catch his breath before getting up. This patient is dyspneic with shallow breathing with expiratory wheezing. The patient states that he feels short of breath because it hurts when he breathes in. The pain is located on his left side and lower back to hip, hurts when he takes a deep breath in or moves. There is no pain on his spine, but off his paraspinous muscle and SI joint to lower ribs. He denies coughing up any blood and/or difficulty urinating, but urine has been darker since yesterday. For his dyspnea he has only had an increase in his neb use and inhalers over the past 24 hours because of above pain causing dyspnea. He is not on oxygen at home, is not on any oxygen now and currently isn't hypoxic. He reports trying some "old pain medicine that he had left over from previous prescription, but is unsure of what it was or when prescribed. Patient endorses some right center chest burning pain that comes and goes. He describes this as his normal GERD pain, which he states is no different than his normal. He had a Troponin I drawn in the EMD and is at 0.05. His ECG is unchanged. In the EMD the patient had routine CXR and lumbar/sacral x-ray, was given 60mg IV methylpred- followed by another 60mg IV Methlypred for his wheezing, he was given 1 albuterol nebulizer and an aspirin. He had routine labs performed that included Troponin I as above, which revealed a leukocytosis that is neutrophil predominant. Patient will be admitted for pain control, further evaluation of his left sided pain and dyspnea, trending Troponin I, and follow his COPD/respiratory status. Patient had is AICD placed at [facility] for what he reports as fast and slow heart rates. His last ECHO that is available here is from 2013 with EF 0-45% and cardiomyopathy with marked hypokinesis of the anterior and anteroseptal curtis with mild global hypokinesis. COVID NAAT test on admission is: NEGATIVE Principal Diagnosis Musculoskeletal back pain following a fall COPD exacerbation Discharge Exam No current concerns or questions. Pain completely resolved. Breathing at baseline but still having significant benefit from duonebs. Constitutional WD/WN, vitals as above Neck trachea midline, no thyromegaly Respiratory normal respiratory effort, lungs clear to auscultation Auscultation: no wheezes Cardiovascular RRR, no murmur, no edema Musculoskeletal Spine: no cervical muscular tenderness, no thoracic spinal tenderness, no lumbar spinal tenderness and no paraspinal tenderness Discharge Data Allergies Allergy/AdvReac Type Severity Reaction Status Date / Time No Known Allergies Allergy Verified 10/26/21 14:36 Consultations 10/26/21 17:03 ED Decision to Admit Stat Ordered Studies 10/26/21 18:26 CT abd pelvis wo con Routine 10/26/21 18:33 CT angio chest PE protocol Stat Hospital Course (1) Back pain due to injury: Sonu Jerome is a 66 year old male admitted to [facility] from October 26-2021 due to back pain after falling. In addition he was diagnosed with a COPD exacerbation with shortness of breath. This was t reated with intravenous steroids and nebulizers. He was prescribed a further 4 days of prednisone despite quick resolution of symptoms he is still having significant benefit from duonebs. He should continue his nebulizers regularly 4 times a day for the next 2 days and then as needed. His back pain resolved overnight with acetaminophen and lidocaine patches therefore advise ongoing as needed treatment with these over the counter medications. (2) COPD (chronic obstructive pulmonary disease): (3) Tachypnea: (4) Elevated troponin I level: (5) Cardiomyopathy: (6) Cardiac defibrillator in place: (7) Leukocytosis: (8) Acute respiratory failure with hypoxia: Total Time Total Time Spent Total Time Spent (In Minutes): 20 Discharge Plan Discharge Items Patient Disposition: Home - Self-Care Reason For Visit: LEFT SIDED BACK PAIN, COPD, TROPONIN ELEVATION Discharge Diagnosis: Musculoskeletal back pain following a fall COPD exacerbation Activity: Resume your previous activity Non-emergency contact: Primary Care Provider Call non-emergency contact if: you have any medication questions and your symptoms worsen Follow-up/Referrals: PCP,NO [Primary Care Provider] - Addtl Attending Provider Instructions: You were admitted to [facility] from October 26-2021 due to back pain after falling. In addition you were diagnosed with a COPD exacerbation with shortness of breath. This was treated with intravenous steroids and nebulizers. Recommend continuing on prednisone for a further 4 days as prescribed below. Continue nebulizers regularly 4 times a day for the next 2 days and then as needed. Continue acetaminophen and lidocaine patches available [id number] as needed for back pain. Pending Studies at Discharge: No Stand-Alone Forms: My [facility] [address], Smoking Cessation Medications and DC Order Prescriptions: New prednisone 20 mg tablet 40 mg PO DAILY 4 Days Qty: 8 RF: 0 Continued carvedilol 6.25 mg Tablet 3.125 mg PO BID RF: 0 spironolactone 25 mg Tablet 12.5 mg PO DAILY RF: 0 losartan 25 mg Tablet 25 mg PO DAILY RF: 0 Spiriva Respimat 2.5 mcg/actuation Mist 2 puff INHALATION DAILY RF: 0 albuterol sulfate 2.5 mg /3 mL (0.083 %) Solution For Nebulization 2.5 mg INHALATION QID PRN (Reason: Shortness Of Breath) RF: 0 fluticasone propion-salmeterol [Wixela Inhub] 500-50 mcg/dose Blister With Device 1 inh INHALATION BID RF: 0 albuterol sulfate 90 mcg/actuation Hfa Aerosol Inhaler 2 puff INHALATION Q6H PRN (Reason: Shortness Of Breath) RF: 0 azithromycin 500 mg Tablet 500 mg PO 3XWK RF: 0 Discharge Orders: Discharge Order (Routine); Ordered 10/27/21 Ordered By: Ryland Wyman Admission Data Admit Date/Time: 10/26/21 17:33 Attending Provider: Ryland Wyman Admit Provider: Ryland Duke Primary Care Provider: PCP,NO Other Providers: Ryland Duke ; [facility] Other Interventions: Discharge Summary Assessment (RN) Last Done: 10/27/21 16:06 Coding Level of Care Code D/C DAY MANAGEMENT <30 MINS Diagnoses Back pain due to injury M54.9 COPD (chronic obstructive pulmonary disease) J44.9 Tachypnea R06.82 Elevated troponin I level R77.8 Cardiomyopathy I42.[address] Z95.810 Leukocytosis D72.829 Acute respiratory failure with hypoxia J96.01
[2021-10-27] MEDS: LIDOCAINE 5% 1 PATCH TD SCH (17:59)
[2021-10-28] MEDS ORDERED: ACETAMINOPHEN 325 MG TAB PO PRN
--- NOTE | 2021-10-28 17:40 | Electrocardiogram Report ---
Test Reason : Blood Pressure : / mmHG Vent. Rate : 100 BPM Atrial Rate : 100 BPM P-R Int : 164 ms QRS Dur : 122 ms QT Int : 352 ms P-R-T Axes : 073 078 060 degrees QTc Int : 454 ms Poor data quality, interpretation may be adversely affected Normal sinus rhythm Right bundle branch block Abnormal ECG When compared with ECG of 11-NOV-2019 14:37, Right bundle branch block has replaced Incomplete right bundle branch block Nonspecific T wave abnormality no longer evident in Inferior leads Nonspecific T wave abnormality no longer evident in Lateral leads Confirmed by Tez Guzmán ([id number]) on 10/28/2021 5:40:17 PM Referred By: REFERRED SELF Confirmed By:Tez Guzmán
[2021-10-29] MEDS ORDERED: AZITHROMYCIN 250 MG TAB PO SCH (09:00)
--- NOTE | 2021-10-29 21:31 | Electrocardiogram Report ---
Test Reason : Blood Pressure : / mmHG Vent. Rate : 109 BPM Atrial Rate : 109 BPM P-R Int : 166 ms QRS Dur : 124 ms QT Int : 338 ms P-R-T Axes : 068 081 081 degrees QTc Int : 455 ms Sinus tachycardia with occasional Premature ventricular complexes Right bundle branch block Abnormal ECG When compared with ECG of 26-OCT-2021 15:02, (unconfirmed) Premature ventricular complexes are now Present Confirmed by Tez Guzmán ([id number]) on 10/29/2021 9:31:32 PM Referred By: REFERRED SELF Confirmed By:Tez Guzmán
== END 2021-10-27 18:27 | disposition home or self-care (01) | DRG 551 ==
LOC: ED 14:23 → EDINP 17:33 → SUATTDRO 17:33 → 2W 21:51

== ENCOUNTER 2023-01-13 14:58 | Inpatient (IN) ==
[2023-01-13 15:35] LABS: Base Excess VBG 3.1 mEq/L; HCO3 VBG 30 mmol/L; Oxygen Saturation VBG < 60.0 %; PCO2 VBG 51 mmHg (38-50); PO2 VBG 22 mmHg; pH VBG 7.37 (7.36-7.41)
[2023-01-13] MEDS ORDERED: ALBUT/IPRATROP 3MG/0.5MG NEB 3 ML VIAL NEB STA (15:45)
--- NOTE | 2023-01-13 15:53 | Emergency Department Note ---
Impression & Plan Pneumonia, COPD (chronic obstructive pulmonary disease), Hypoxia ED Provider Note NAME: GALO WAGONER AGE: 68 SEX: M : 1955 ARRIVES VIA: Ambulance INFORMANT: Patient, ED PROVIDER(S): Brody Hendricks DO CHIEF COMPLAINT: Difficulty breathing HPI: The patient is a 68-year-old male who presented to the emergency department by ambulance for an evaluation of difficulty breathing. The patient went to see his family doctor today. He was coughing. He was having difficulty breathing. He has a history of COPD. He presented to the emergency department by ambulance. He did receive a DuoNeb as well as Solu-Medrol prior to arrival. He denies having any hemoptysis. He denies having any lower extremity swelling or pain. The patient states he has been using his outpatient medications as usual. He states he does feel somewhat improved after the DuoNeb therapy prior to arrival. Reportedly oxygen saturation was in the 80s. He does not wear oxygen at home. ROS: See above HPI for pertinent positives & negatives. A total of 10 systems reviewed and were otherwise negative. PAST MEDICAL HISTORY: See Below PAST SURGICAL HISTORY: See Below FAMILY HISTORY: See Below SOCIAL HISTORY: See Below HOME MEDICATIONS: See Below ALLERGIES: See Below VITALS: See Below PHYSICAL EXAMINATION: GENERAL: The patient is awake and alert. He is somewhat anxious appearing. EYES: The conjunctivae are clear. The pupils are round and reactive. EARS, NOSE, MOUTH AND THROAT: The nose is without any evidence of any deformity. NECK: The neck is nontender and supple. RESPIRATORY: Diminished breath sounds are noted throughout. There is pursed lip breathing. Mild conversational dyspnea is appreciated. CARDIOVASCULAR: Tachycardic and irregular heart sounds were noted to auscultation. There is no murmur. GASTROINTESTINAL: The abdomen is soft. Abdomen is nontender. MUSCULOSKELETAL/EXTREMITIES: There is no evidence of gross deformity full range of motion is noted in the hips and shoulders. SKIN: There is no obvious evidence of any rash. There are no petechiae, pallor or cyanosis noted. NEUROLOGIC: Patient is awake alert and oriented x3 MEDICAL DECISION MAKING: The patient is a 68-year-old male who presented to the emergency department for an evaluation of difficulty breathing. The patient was seen in an outpatient setting initially. He was found to be hypoxic so 911 was called. The patient arrived via ambulance. The patient was treated with steroids as well as DuoNeb prior to arrival. He was treated with another DuoNeb here as well as IV antibiotics for presumed pneumonia noted on chest x-ray. I discussed the patient's laboratory and radiographic studies with him. Because of the hypoxia I did discuss his condition with the on-call [facility] hospitalist. They have agreed to evaluate the patient in the emergency department for further management and disposition. Triage Nursing notes reviewed. Prior medical records reviewed Vital Signs: reviewed and remarkable for tachycardia. Differential diagnosis: Reactive airway disease, pneumonia, pneumothorax, COPD, CHF, infections, cardiac ischemia, pulmonary embolism, musculoskeletal, gastrointestinal, as well as other pathologies. ER treatment provided: See below Diagnostics interpreted by me: ECG: EKG was obtained in the emergency department. My interpretation is sinus tachycardia at 105 bpm. There is no acute ST segment abnormalities noted. PVCs were noted throughout. Right bundle branch block pattern was appreciated. This was compared to a tracing from October 27, 2021. No changes were noted. Cardiac Monitoring: An order was placed for continuous cardiac monitoring. The monitor shows a rate of 101 bpm with sinus tachycardia Laboratory studies: As stated above and show below. Imaging studies: See below. Radiographic imaging was reviewed by myself Consultation(s): I discussed this case with Dr. Baltazar who is on-call for the [facility] hospitalist group. Past Med/Surg History Medical History (Updated 01/13/23 @ 19:58 by Brody Hendricks DO) Cardiac defibrillator in place placed in 2013 > [employer] > last checked approx 2 mos ago > follows with cardio at [facility] in [place] > placed for cardiomyopathy per pt and irregular heart beats Cardiomyopathy COPD (chronic obstructive pulmonary disease) controlled with regular inhalers, rare res inh use Dysphagia reason for upcoming EGD Emphysema of lung GERD (gastroesophageal reflux disease) History of COVID-19 Apr 22, 2022 > tested at [facility] in [place] > sore throat, chills, loss of taste and smell, no appetite > taste is just now coming back Hypertension Kidney stones passed on own Low blood pressure happens on occasion T8 vertebral fracture healed on own > does get pain to area occasionally Surgical History History of cardiac cath 2003 > no stents History of tooth extraction Hx of inguinal hernia repair Hx of vasectomy Family History Other Family history non-contributory Social History Smoking Status: Former smoker Tobacco Type: Cigarettes packs per day: 2; Cigarettes Per Day: 20; Second Hand Exposure: No; Do You Dip or Chew Tobacco: No; Hx Alcohol Use: No Hx Substance Use: No Preferred Language: Greenlandic Communication Ability: Effective Yarn Examiner Required: No Beliefs That Will Affect Care: None marital status: Current Living Situation: Family Current Living Situation Comment: Cousin current occupational status: retired Feels Safe at Home: Yes Assistive Devices: Denture - Upper, Denture - Lower and Glasses Allergies Allergies Allergy/AdvReac Type Severity Reaction Status Date / Time fire ant Allergy Intermediate Swelling Verified 01/13/23 17:13 of Lip/Tongue/Throat lisinopril AdvReac Intermediate Cough Verified 01/13/23 17:13 Home Meds Home Medications Medication Instructions Recorded Confirmed carvedilol 6.25 mg tablet 3.125 mg PO BID 11/11/19 01/13/23 losartan 25 mg tablet 12.5 mg PO QAM 11/11/19 01/13/23 spironolactone 25 mg tablet 12.5 mg PO QAM 11/11/19 01/13/23 tiotropium bromide 2.5 2 puff inhalation QAM 11/11/19 01/13/23 mcg/actuation mist for inhalation (Spiriva Respimat) albuterol sulfate 2.5 mg/3 mL 2.5 mg inhalation QID PRN 10/26/21 01/13/23 (0.083 %) solution for nebulization Shortness Of Breath albuterol sulfate 90 mcg/actuation 2 puff inhalation Q6H PRN 10/26/21 01/13/23 aerosol inhaler Shortness Of Breath fluticasone 500 mcg-salmeterol 50 1 inh inhalation BID 10/26/21 01/13/23 mcg/dose blistr powdr for inhalation (Wixela Inhub) cholecalciferol (vitamin D3) 25 25 mcg PO QAM 06/03/22 01/13/23 mcg (1,000 unit) capsule Previous Rx's Medication Instructions Recorded pantoprazole 40 mg tablet,delayed 40 mg PO DAILY #90 tabs 07/17/22 release Results & Data (ED) Vital Signs Vital Signs - 24 hr 01/13/23 15:04 01/13/23 15:09 01/13/23 15:09 Temperature 36.6 C Temperature Source Oral Pulse Rate 120 H 103 H 100 H Pulse Rate from SpO2 Sensor Respiratory Rate 24 Respiratory Effort / Characteristics Short of Breath Blood Pressure 118/70 Blood Pressure Mean 86 Pulse Oximetry 94 Oxygen Delivery Method Room Air Oxygen Flow Rate Sepsis Recent Fever Within 48 Hours No Sepsis New/Unexplained Change in Mental Status No Sepsis Action Taken by Nursing No Action Required Oxygen Flow Rate - Titration Pulse Oximetry Post Tiitration 01/13/23 15:09 01/13/23 15:27 01/13/23 15:03 Temperature Temperature Source Pulse Rate 107 H Pulse Rate from SpO2 Sensor 87 Respiratory Rate 12 Respiratory Effort / Characteristics Blood Pressure Blood Pressure Mean Pulse Oximetry 94 98 94 Oxygen Delivery Method Room Air Nasal Cannula Oxygen Flow Rate 2 Sepsis Recent Fever Within 48 Hours Sepsis New/Unexplained Change in Mental Status Sepsis Action Taken by Nursing Oxygen Flow Rate - Titration 2 Pulse Oximetry Post Tiitration 98 01/13/23 15:10 01/13/23 15:20 01/13/23 15:30 Temperature Temperature Source Pulse Rate 104 H 100 H Pulse Rate from SpO2 Sensor 82 75 Respiratory Rate 22 19 Respiratory Effort / Characteristics Blood Pressure 99/62 L Blood Pressure Mean 74 Pulse Oximetry 96 98 Oxygen Delivery Method Oxygen Flow Rate Sepsis Recent Fever Within 48 Hours Sepsis New/Unexplained Change in Mental Status Sepsis Action Taken by Nursing Oxygen Flow Rate - Titration Pulse Oximetry Post Tiitration 01/13/23 15:30 01/13/23 15:40 01/13/23 15:50 Temperature Temperature Source Pulse Rate 92 H 100 H 103 H Pulse Rate from SpO2 Sensor 77 70 87 Respiratory Rate 18 20 22 Respiratory Effort / Characteristics Blood Pressure Blood Pressure Mean Pulse Oximetry 98 98 93 Oxygen Delivery Method Oxygen Flow Rate Sepsis Recent Fever Within 48 Hours Sepsis New/Unexplained Change in Mental Status Sepsis Action Taken by Nursing Oxygen Flow Rate - Titration Pulse Oximetry Post Tiitration 01/13/23 16:00 01/13/23 16:00 01/13/23 16:10 Temperature Temperature Source Pulse Rate 98 H 100 H Pulse Rate from SpO2 Sensor 86 78 Respiratory Rate 20 32 H Respiratory Effort / Characteristics Blood Pressure 113/84 Blood Pressure Mean 93 Pulse Oximetry 100 94 Oxygen Delivery Method Oxygen Flow Rate Sepsis Recent Fever Within 48 Hours Sepsis New/Unexplained Change in Mental Status Sepsis Action Taken by Nursing Oxygen Flow Rate - Titration Pulse Oximetry Post Tiitration 01/13/23 16:20 01/13/23 16:30 01/13/23 16:31 Temperature Temperature Source Pulse Rate 99 H 96 H Pulse Rate from SpO2 Sensor 86 82 Respiratory Rate 23 27 H Respiratory Effort / Characteristics Blood Pressure 120/71 Blood Pressure Mean 87 Pulse Oximetry 92 92 Oxygen Delivery Method Oxygen Flow Rate Sepsis Recent Fever Within 48 Hours Sepsis New/Unexplained Change in Mental Status Sepsis Action Taken by Nursing Oxygen Flow Rate - Titration Pulse Oximetry Post Tiitration 01/13/23 16:31 01/13/23 16:40 01/13/23 16:50 Temperature Temperature Source Pulse Rate 101 H 97 H 87 Pulse Rate from SpO2 Sensor 93 H 82 86 Respiratory Rate 23 24 24 Respiratory Effort / Characteristics Blood Pressure Blood Pressure Mean Pulse Oximetry 88 L 91 91 Oxygen Delivery Method Room Air Room Air Oxygen Flow Rate Sepsis Recent Fever Within 48 Hours Sepsis New/Unexplained Change in Mental Status Sepsis Action Taken by Nursing Oxygen Flow Rate - Titration Pulse Oximetry Post Tiitration 01/13/23 17:00 01/13/23 17:00 01/13/23 17:10 Temperature Temperature Source Pulse Rate 99 H 99 H Pulse Rate from SpO2 Sensor 93 H 85 Respiratory Rate 23 28 H Respiratory Effort / Characteristics Blood Pressure 119/81 Blood Pressure Mean 93 Pulse Oximetry 92 91 Oxygen Delivery Method Oxygen Flow Rate Sepsis Recent Fever Within 48 Hours Sepsis New/Unexplained Change in Mental Status Sepsis Action Taken by Nursing Oxygen Flow Rate - Titration Pulse Oximetry Post Tiitration 01/13/23 17:20 01/13/23 17:30 Temperature Temperature Source Pulse Rate 104 H 102 H Pulse Rate from SpO2 Sensor 76 Respiratory Rate 25 H 24 Respiratory Effort / Characteristics Blood Pressure Blood Pressure Mean Pulse Oximetry 93 69 L Oxygen Delivery Method Oxygen Flow Rate Sepsis Recent Fever Within 48 Hours Sepsis New/Unexplained Change in Mental Status Sepsis Action Taken by Nursing Oxygen Flow Rate - Titration Pulse Oximetry Post Tiitration Home Medications Current Medication List: was personally reviewed by me Laboratory Data Attestation: I reviewed the patient's lab results. 01/13/23 15:04 01/13/23 15:04 Lab Results 01/13/23 01/13/23 01/13/23 Range/Units 15:04 15:04 15:04 WBC 16.36 H (4.8-10.8) K/ul RBC 4.74 (4.70-6.10) M/uL Hgb 14.4 (14.0-18.0) g/dl Hct 41.5 L (42.0-52.0) % MCV 87.6 (80.0-100.0) fL MCH 30.4 (25.0-34.0) pg MCHC 34.7 (32.0-36.0) g/dL RDW Std Deviation 42.3 (36.4-46.3) fL RDW Coeff of Renee 13.2 (11.5-14.5) % Plt Count 396 (130-400) K/uL MPV 9.7 (9.4-12.4) fL Immature Gran % (Auto) 2.6 % Neut % (Auto) 81.0 % Lymph % (Auto) 6.9 % [place] % (Auto) 8.6 % Eos % (Auto) 0.4 % Baso % (Auto) 0.5 % Neut # (Auto) 13.25 H (1.40-6.50) K/uL Lymph # (Auto) 1.13 L (1.2-3.4) K/uL [place] # (Auto) 1.41 H (0.11-0.59) K/uL Eos # (Auto) 0.07 (0-0.50) K/uL Baso # (Auto) 0.08 (0-0.2) K/uL Immature Gran # (Auto) 0.42 H (0.01-0.20) K/uL PT 11.3 (9.0-12.0) Seconds INR 1.0 (0.9-1.1) APTT 30.5 (21.0-31.0) Seconds PTT Ratio 1.1 VBG pH (7.36-7.41) VBG pCO2 (38-50) mmHg VBG pO2 mmHg VBG HCO3 mmol/L VBG O2 Saturation % VBG Base Excess mEq/L Sodium 135 L (136-145) mmol/L Potassium 4.1 (3.5-5.1) mmol/L Chloride 100 (98-107) mmol/L Carbon Dioxide 27 (21-32) mmol/L Anion Gap 8 (3-11) BUN 24 H (6-23) mg/dl Creatinine 0.90 (0.6-1.4) mg/dl Est Cr Clr Drug Dosing 62.9 ml/min Est GFR ( Amer) 100.6 ml/min Est GFR (Non-Af Amer) 86.8 ml/min BUN/Creatinine Ratio 26.7 H (10-20) Glucose 106 H (70-99(Fasting)) mg/dl Calcium 9.4 (8.6-10.3) mg/dl Total Bilirubin 2.0 H (0.2-1.0) mg/dl AST 15 (13-39) U/L ALT 17 (7-52) U/L Alkaline Phosphatase 57 (34-104) U/L Troponin I High Sens 7.7 (0-20) pg/ml B-Natriuretic Peptide (0-100) pg/ml Total Protein 6.8 (6.0-8.3) gm/dl Albumin 3.7 (3.4-5.0) gm/dl Globulin 3.1 (2.5-4.0) gm/dl Albumin/Globulin Ratio 1.2 (0.9-2) 01/13/23 01/13/23 Range/Units 15:04 15:04 WBC (4.8-10.8) K/ul RBC (4.70-6.10) M/uL Hgb (14.0-18.0) g/dl Hct (42.0-52.0) % MCV (80.0-100.0) fL MCH (25.0-34.0) pg MCHC (32.0-36.0) g/dL RDW Std Deviation (36.4-46.3) fL RDW Coeff of Renee (11.5-14.5) % Plt Count (130-400) K/uL MPV (9.4-12.4) fL Immature Gran % (Auto) % Neut % (Auto) % Lymph % (Auto) % [place] % (Auto) % Eos % (Auto) % Baso % (Auto) % Neut # (Auto) (1.40-6.50) K/uL Lymph # (Auto) (1.2-3.4) K/uL [place] # (Auto) (0.11-0.59) K/uL Eos # (Auto) (0-0.50) K/uL Baso # (Auto) (0-0.2) K/uL Immature Gran # (Auto) (0.01-0.20) K/uL PT (9.0-12.0) Seconds INR (0.9-1.1) APTT (21.0-31.0) Seconds PTT Ratio VBG pH 7.37 (7.36-7.41) VBG pCO2 51 H (38-50) mmHg VBG pO2 22 mmHg VBG HCO3 30 mmol/L VBG O2 Saturation < 60.0 % VBG Base Excess 3.1 mEq/L Sodium (136-145) mmol/L Potassium (3.5-5.1) mmol/L Chloride (98-107) mmol/L Carbon Dioxide (21-32) mmol/L Anion Gap (3-11) BUN (6-23) mg/dl Creatinine (0.6-1.4) mg/dl Est Cr Clr Drug Dosing ml/min Est GFR ( Amer) ml/min Est GFR (Non-Af Amer) ml/min BUN/Creatinine Ratio (10-20) Glucose (70-99(Fasting)) mg/dl Calcium (8.6-10.3) mg/dl Total Bilirubin (0.2-1.0) mg/dl AST (13-39) U/L ALT (7-52) U/L Alkaline Phosphatase (34-104) U/L Troponin I High Sens (0-20) pg/ml B-Natriuretic Peptide 196 H (0-100) pg/ml Total Protein (6.0-8.3) gm/dl Albumin (3.4-5.0) gm/dl Globulin (2.5-4.0) gm/dl Albumin/Globulin Ratio (0.9-2) Administered Medications Discontinued Medications Albuterol (Albut/Ipratrop 3mg/0.5mg Neb 3 Ml Vial) 3 ml NEB NOW STA; Protocol Stop: 01/13/23 15:46 Last Admin: 01/13/23 16:02 Dose: 3 ml Documented By: ARIANNA Ceftriaxone Sodium (Rocephin) 2,000 mg in 70 mls @ 140 mls/hr IV NOW STA Stop: 01/13/23 17:56 Last Infusion: 01/13/23 18:46 Dose: 0 mls/hr Documented By: Admin: 01/13/23 17:45 Dose: 140 mls/hr Documented By: ARIANNA Imaging Data Attestation: I personally reviewed and interpreted this imaging study as follows: My Impression: 1 view chest x-ray was obtained in the emergency department. My interpretation is right-sided infiltrate, no free air, final report below. Radiologist's Impression: Chest X-Ray 01/13/23 15:26 SINGLE VIEW CHEST CLINICAL HISTORY: Atypical chest pain. FINDINGS: 2 AP, portable, upright chest radiographs are compared to chest x-ray and chest CT dated 10/26/2021. The examination is degraded by portable technique and apical lordotic positioning. A single-lead cardiac AICD is unchanged in position and partially obscures the left upper chest. The heart is top normal for projection noting atherosclerotic calcification of the thoracic aorta. The pulmonary vasculature is noncongested. Advanced emphysema and chronic interstiti al thickening is similar to previous. Airspace consolidation is seen at the right lung base. No large pleural effusion or pneumothorax is identified. The skeletal structures are osteopenic. The bony thorax is grossly intact. IMPRESSION: 1. Right basilar consolidation is typical for pneumonia/aspiration pneumonitis. Clinical correlation will be required and radiographic follow-up to resolution is recommended. 2. Advanced emphysema. 3. A cardiac AICD is in place. There is no radiographic evidence of congestive failure. ACT 112: Negative or not required by law. Electronically signed by: Guille Sequeira M.D. 01/13/2023 4:08 PM Discharge Plan Visit Data Chief Complaint: Shortness of Breath/Dyspnea Stated Complaint: SOB, cough, chills ED Provider: Brody Hendricks Discharge Problem: Pneumonia, COPD (chronic obstructive pulmonary disease), Hypoxia Patient Disposition: Admitted As Inpatient Discharge Instructions Interventions: ED Discharge Assessment Last Done: 01/13/23 19:34
[2023-01-13 15:54] LABS: Basophils # (auto) 0.08 K/uL (0-0.2); Basophils % (auto) 0.5 %; Eosinophils # (auto) 0.07 K/uL (0-0.50); Eosinophils % (auto) 0.4 %; Hematocrit (blood only) 41.5 % (42.0-52.0); Hemoglobin 14.4 g/dl (14.0-18.0); Immature Granulocytes # (auto) 0.42 K/uL (0.01-0.20); Immature Granulocytes % (auto) 2.6 %; Lymphocytes # (auto) 1.13 K/uL (1.2-3.4); Lymphocytes % (auto) 6.9 %; Mean Corpuscular Hemoglobin 30.4 pg (25.0-34.0); Mean Corpuscular Hgb Conc 34.7 g/dL (32.0-36.0); Mean Corpuscular Volume 87.6 fL (80.0-100.0); Mean Platelet Volume 9.7 fL (9.4-12.4); Monocytes # (auto) 1.41 K/uL (0.11-0.59); Monocytes % (auto) 8.6 %; Neutrophils # (auto) 13.25 K/uL (1.40-6.50); Platelet Count 396 K/uL (130-400); RDW Coefficient of Variation 13.2 % (11.5-14.5); RDW Standard Deviation 42.3 fL (36.4-46.3); Red Blood Count 4.74 M/uL (4.70-6.10); White Blood Count 16.36 K/ul (4.8-10.8)
[2023-01-13 16:09] LABS: Albumin Globulin Ratio 1.2 (0.9-2); Albumin Level 3.7 gm/dl (3.4-5.0); BUN Creatinine Ratio 26.7 (10-20); Calcium 9.4 mg/dl (8.6-10.3); Creatinine Clr Calc Pharmacy 62.9 ml/min; Est GFR (African American) 100.6 ml/min; Est GFR (Non-African American) 86.8 ml/min; Globulin 3.1 gm/dl (2.5-4.0); Potassium 4.1 mmol/L (3.5-5.1); Total Protein 6.8 gm/dl (6.0-8.3)
--- NOTE | 2023-01-13 16:09 | XRay Report ---
SINGLE VIEW CHEST CLINICAL HISTORY: Atypical chest pain. FINDINGS: 2 AP, portable, upright chest radiographs are compared to chest x-ray and chest CT dated 07/2022. The examination is degraded by portable technique and apical lordotic positioning. A single- lead cardiac AICD is unchanged in position and partially obscures the left upper chest. The heart is top normal for projection noting atherosclerotic calcification of the thoracic aorta. The pulmonary v asculature is noncongested. Advanced emphysema and chronic interstitial thickening is similar to prev ious. Airspace consolidation is seen at the right lung base. No large pleural effusion or pneumothora x is identified. The skeletal structures are osteopenic. The bony thorax is grossly intact. IMPRESSION: 1. Right basilar consolidation is typical for pneumonia/aspiration pneumonitis. Clinical correlation will be required and radiographic follow-up to resolution is recommended. 2. Advanced emphysema. 3. A cardiac AICD is in place. There is no radiographic evidence of congestive failure. ACT 112: Negative or not required by law. Electronically signed by: Guille Sequeira M.D. 01/13/2023 4:08 PM
[2023-01-13 16:16] LABS: Troponin I High Sensitivity 7.7 pg/ml (0-20)
[2023-01-13 16:20] LABS: Partial Thromboplastin Ratio 1.1; Partial Thromboplastin Time 30.5 Seconds (21.0-31.0); Prothrombin Time 11.3 Seconds (9.0-12.0)
[2023-01-13 16:58] LABS: Influenza A virus by PCR Negative (Neg); Influenza B virus by PCR Negative (Neg); RSV by PCR Negative (Neg); SARS CoV2 RNA(COVID-19) Ceph NEGATIVE (Negative)
[2023-01-13] MEDS ORDERED: cefTRIAXone SODIUM 2,000 MG/70 ML BAG IV STA (17:27)
--- NOTE | 2023-01-13 18:28 | History & Physical Report ---
Date of Service January 13, 2023 Assessment & Plan (1) CAP (community acquired pneumonia): Plan: Community-acquired pneumonia, concurrent COPD exacerbation Acute, high risk Patient with 3 days of worsening fever, chills, exertional shortness of breath. No chest pain/chest pressure/leg swelling/orthopnea Continues to have wheezing and dry cough which is normal, no sputum production, but increased shortness of breath compared to his baseline. 93% on room air at rest, desaturates to 89% with speech during HPI Leukocytosis of 16 with neutrophilic predominance VB.3 /, mild compensated hypercapnia Renal function is normal, creatinine 0.9 on admission BNP 196 on admission, no baseline available for review. No evidence of congestive failure on CXR. No chest pain or evidence of heart strain on EKG, D- dimer ordered to r/o PE Troponin 7.7 on admission, no chest pain No acute EKG changes COVID/flu/RSV negative CXR: Right basilar consolidation suspicious for pneumonia. Advanced emphysema. No evidence of CHF. We will treat as community-acquired pneumonia with superimposed COPD exacerbation Continue Rocephin. Azithromycin deferred due to borderline QT prolongation, doxycycline 100 mg twice daily substitute CBC daily BNP is slightly elevated, without troponin elevation. No evidence of congestive failure on admitting x-ray. No inspiratory pain Acute on chronic COPD/emphysema Continue Rocephin/Doxy. Doxy substituted for azithromycin due to borderline QT Convert Spiriva/Wixela to formulary equivalent Of note patient was going to switch from Wixela once his current prescription ran out Trace end expiratory wheezes at bedside with basilar crackles We will treat with methylprednisolone 40 mg daily for concurrent COPD exacerbation BiPAP nightly GERD Patient underwent EGD for Schatzki ring with dilation 07/2022 Was noted at that time to have extensive intestinal metaplasia on biopsy requiring 3-year EGD follow-up Continue PPI Patient endorses some fatigue and nausea over the weekend, none at time of assessment. He has not had any vomiting. Does not have epigastric tenderness and does not feel like he is having a GERD flare. History of cardiomyopathy Patient denies history of heart attack, ischemic [place]. Does have a history of EF 40-45% in 2013, and a past troponin elevation suspected due to demand Carvedilol continued ARB/spironolactone continued No chest pain at time of presentation ICD is in place, patient reports this is never fired Admitting EKG: Poor quality tracing right bundle branch block, sinus tachycardia with PVCs. No territorial ST segment/T wave changes, prior ST depressions from prior admission have improved Former tobacco use In remission for 8 years, [id number] prior history with concurrent COPD/emphysema CTA 10/2021 was with severe emphysema, no PE, no suspicious nodules or evidence of malignancy at that time. Recommend annual low-dose lung cancer screening DVT prophylaxis: Dose reduced Lovenox Diet: Heart healthy Disposition: Medical telemetry for acute hypoxic respiratory failure and sinus tachycardia, downgrade to MedSurg if stable and PE eval negative CODE STATUS: Full code (2) COPD (chronic obstructive pulmonary disease): (3) Cardiac defibrillator in place: (4) Cardiomyopathy: (5) Hx of cardiomyopathy: (6) GERD (gastroesophageal reflux disease): History of Present Illness Primary Care Provider: [facility] Friday started to have increasing shortness of breath with exertion. "With what little I didn't I just could breath and catch my breath." Appetite decreased. No chest pain or chest pressure. INcreased cough for 1-2 days, similar to maybe a little more than normal. Cough in not productive. Is having wheezing, notes this is chronic and hasn't changed much but the shortness of breath is worse than it usually is when he wheezes. No orthopnea, sleeps well on R side. Has had fevers and chills for 2 days. Loose bowels/1 episode of dark brown diarrhea which just started today. No vomiting. No epigastric pain. Urine has been 'deep copper and darker.' Peeing less than normal, no dysuria. Has not been eating/drinking well to feeling poorly overall. Denies skin changes, rash, erythema Hx of ICD. No history of heart attack. No stents or bipass. ICD has never fired. Denies heart failure. Not sure is he has a history of VF or VT. ICD was placed by [facility]. Does have history of reduced ejection fraction, patient reports he is not sure why this is an etiology has not been determined PCP is [facility]. Does not follow with any other PCP. Medical History: Reviewed Medications: Reviewed. Took meds this morning. Does not have Wixela with him. Almost out of home inhalers, notes he is going to switch to an equivalent when. Surgical History: Reviewed Family history: Reviewed Allergies: Reviewed. Lisinipril dry cough Social History: No curren ttobacco use. 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 No etoh use. Code Status:Full Allergies Allergy/AdvReac Type Severity Reaction Status Date / Time fire ant Allergy Intermediate Swelling Verified 01/13/23 17:13 of Lip/Tongue/Throat lisinopril AdvReac Intermediate Cough Verified 01/13/23 17:13 Home Medications Medication Instructions Recorded Confirmed Type carvedilol 6.25 mg tablet 3.125 mg PO BID 11/11/19 01/13/23 History losartan 25 mg tablet 12.5 mg PO QAM 11/11/19 01/13/23 History spironolactone 25 mg tablet 12.5 mg PO QAM 11/11/19 01/13/23 History tiotropium bromide 2.5 2 puff inhalation QAM 11/11/19 01/13/23 History mcg/actuation mist for inhalation (Spiriva Respimat) albuterol sulfate 2.5 mg/3 mL 2.5 mg inhalation QID PRN 10/26/21 01/13/23 History (0.083 %) solution for nebulization Shortness Of Breath albuterol sulfate 90 mcg/actuation 2 puff inhalation Q6H PRN 10/26/21 01/13/23 History aerosol inhaler Shortness Of Breath fluticasone 500 mcg-salmeterol 50 1 inh inhalation BID 10/26/21 01/13/23 History mcg/dose blistr powdr for inhalation (Wixela Inhub) cholecalciferol (vitamin D3) 25 25 mcg PO QAM 06/03/22 01/13/23 History mcg (1,000 unit) capsule pantoprazole 40 mg tablet,delayed 40 mg PO DAILY #90 tabs 07/17/22 01/13/23 Rx release Past Med/Surg History Medical History (Updated 01/13/23 @ 18:40 by Gerry Burnham MD) Cardiac defibrillator in place placed in 2013 > Smadex > last checked approx 2 mos ago > follows with cardio at [place] in [place] > placed for cardiomyopathy per pt and irregular heart beats Cardiomyopathy COPD (chronic obstructive pulmonary disease) controlled with regular inhalers, rare res inh use Dysphagia reason for upcoming EGD Emphysema of lung GERD (gastroesophageal reflux disease) History of COVID-19 Apr 22, 2022 > [facility] [place] > sore throat, chills, loss of taste and smell, no appetite > taste is just now coming back Hypertension Kidney stones passed on own Low blood pressure happens on occasion T8 vertebral fracture healed on own > does get pain to area occasionally Surgical History History of cardiac cath 2003 > no stents History of tooth extraction Hx of inguinal hernia repair Hx of vasectomy Family History Other Family history non-contributory Social History Smoking Status: Former smoker Tobacco Type: Cigarettes packs per day: 2; Cigarettes Per Day: 20; Second Hand Exposure: No; Do You Dip or Chew Tobacco: No; Hx Alcohol Use: No Hx Substance Use: No Preferred Language: Kiswahili Communication Ability: Effective End Trimmer Required: No Beliefs That Will Affect Care: None marital status: Current Living Situation: Family Current Living Situation Comment: Cousin current occupational status: retired Feels Safe at Home: Yes Assistive Devices: Denture - Upper, Denture - Lower and Glasses Review of Systems Review of Systems: All systems reviewed & are unremarkable except as noted in HPI & below Physical Exam Physical Exam: General: Cachectic. Alert and oriented x3. Appears dyspneic with intermittent pursed lip breathing. Oxygen 9394 on room air, desats easily once HEENT: Atraumatic, normocephalic. Vision/Hearing intact. Pupils equal and reactive to Pulm: Basilar crackles, increased in the right lower lobe. Scattered end expiratory wheezes. No rales or rhonchi Cardiac: Regular, tachycardia, -mrg. Radial pulses intact and symmetrical. Abdominal: Nontender, nondistended, soft. BS present. Ext: Thin. No edema. Moves upper and lower extremities equally. Sensation and strength in distal extremities grossly Results & Data Results & Data Vital Signs (Past 12 Hours) Vital Signs Temp Pulse Resp BP Pulse Ox O2 Del Method O2 Flow Rate 01/13/23 17:20 104 H 25 H 93 01/13/23 17:10 99 H 28 H 91 05/01/23 17:00 99 H 23 92 01/13/23 17:00 119/81 01/13/23 16:50 87 24 91 01/13/23 16:40 97 H 24 91 Room Air 01/13/23 16:31 101 H 23 88 L Room Air 01/13/23 16:31 120/71 01/13/23 16:30 96 H 27 H 92 01/13/23 16:20 99 H 23 92 01/13/23 16:10 100 H 32 H 94 01/13/23 16:00 98 H 20 100 01/13/23 16:00 113/84 01/13/23 15:50 103 H 22 93 01/13/23 15:40 100 H 20 98 01/13/23 15:30 92 H 18 98 01/13/23 15:30 99/62 L 01/13/23 15:20 100 H 19 98 01/13/23 15:10 104 H 22 96 01/13/23 15:03 107 H 12 94 01/13/23 15:27 98 Nasal Cannula 2 01/13/23 15:09 94 Room Air 01/13/23 15:09 100 H 01/13/23 15:09 36.6 C 103 H 24 118/70 94 Room Air 01/13/23 15:04 120 H PG Care Time/CCT Total # of Minutes Spent Total Time Spent with Patient: Total time spent is greater than 50% in coordination of care (as documented) at patient's floor/unit and/or counseling patient: Coding Level of Care Code 94966 INT INP/OBS CARE 2/55MIN Diagnoses CAP (community acquired pneumonia) J18.9 COPD (chronic obstructive pulmonary disease) J44.[address] Z95.810 Cardiomyopathy I42.9 Hx of cardiomyopathy Z86.79 GERD (gastroesophageal reflux disease) K21.9
[2023-01-13] MEDS ORDERED: ALBUTEROL 0.083% NEBU SOLN 3 ML VIAL INH PRN (20:09)
[2023-01-13] MEDS ORDERED: ACETAMINOPHEN 325 MG TAB PO PRN (20:09)
[2023-01-13] MEDS ORDERED: ALBUT/IPRATROP 3MG/0.5MG NEB 3 ML VIAL NEB PRN (20:09)
[2023-01-13] MEDS ORDERED: ALBUTEROL HFA 8 GM INHALER INH PRN (20:09)
[2023-01-13 20:31] LABS: D Dimer 670 ug/L FEU (0-500)
[2023-01-13] MEDS: carvediloL 3.125 MG TAB PO SCH (20:45)
[2023-01-13] MEDS: methylPREDNISolone 40 MG in SYRINGE 0 ML IV SCH (20:45)
[2023-01-13] MEDS: NICOTINE 14 MG/24 HR PATCH TD SCH (20:46)
[2023-01-13] MEDS: DOXYCYCLINE HYCLATE 100 MG in DEXTROSE 5% 100 ML IV SCH (20:51)
[2023-01-14] MEDS ORDERED: SODIUM CHLORIDE 0.9% 1000ML 500 ML IV ONE (00:38)
[2023-01-14 08:06] LABS: Basophils # (auto) 0.02 K/uL (0-0.2); Basophils % (auto) 0.1 %; Eosinophils # (auto) 0.01 K/uL (0-0.50); Eosinophils % (auto) 0.1 %; Hematocrit (blood only) 37.9 % (42.0-52.0); Hemoglobin 13.3 g/dl (14.0-18.0); Immature Granulocytes # (auto) 0.47 K/uL (0.01-0.20); Immature Granulocytes % (auto) 3.4 %; Lymphocytes # (auto) 0.85 K/uL (1.2-3.4); Lymphocytes % (auto) 6.1 %; Mean Corpuscular Hemoglobin 30.2 pg (25.0-34.0); Mean Corpuscular Hgb Conc 35.1 g/dL (32.0-36.0); Mean Corpuscular Volume 86.1 fL (80.0-100.0); Mean Platelet Volume 9.6 fL (9.4-12.4); Monocytes # (auto) 0.35 K/uL (0.11-0.59); Monocytes % (auto) 2.5 %; Neutrophils # (auto) 12.27 K/uL (1.40-6.50); Neutrophils % (auto) 87.8 %; Platelet Count 352 K/uL (130-400); RDW Coefficient of Variation 13.1 % (11.5-14.5); RDW Standard Deviation 40.7 fL (36.4-46.3); White Blood Count 13.97 K/ul (4.8-10.8)
[2023-01-14] MEDS: carvediloL 3.125 MG TAB PO SCH ×2 (08:19→21:39)
[2023-01-14] MEDS: CHOLECALCIFEROL 1,000 UNITS 25 MCG TAB PO SCH (08:19)
[2023-01-14] MEDS: LOSARTAN POTASSIUM 25 MG TAB PO SCH (08:19)
[2023-01-14] MEDS: DOXYCYCLINE HYCLATE 100 MG in DEXTROSE 5% 100 ML IV SCH ×2 (08:19→21:35)
[2023-01-14] MEDS: PANTOprazole 40 MG TAB PO SCH (08:20)
[2023-01-14] MEDS: SPIRONOLACTONE 12.5 MG TAB PO SCH (08:20)
[2023-01-14] MEDS: methylPREDNISolone 40 MG in SYRINGE 0 ML IV SCH (08:20)
[2023-01-14] MEDS: UMECLIDINIUM BROMIDE 62.5MCG/BLISTER 7 PUFFS/INHALER INH SCH (08:21)
[2023-01-14] MEDS: NICOTINE 14 MG/24 HR PATCH TD SCH (08:21)
[2023-01-14] MEDS: FLUTICASONE/VILANTEROL 100/25MCG 14 PUFFS/INHALER INH SCH (08:21)
[2023-01-14 08:26] LABS: BUN Creatinine Ratio 28.2 (10-20); Calcium 8.8 mg/dl (8.6-10.3); Creatinine Clr Calc Pharmacy 79.7 ml/min; Est GFR (Non-African American) 95.7 ml/min
--- NOTE | 2023-01-14 08:37 | Hospitalist Progress Note ---
Date of Service January 14, 2023 Assessment & Plan (1) CAP (community acquired pneumonia): Plan: Community-acquired pneumonia, concurrent COPD exacerbation Acute, high risk COVID/flu/RSV negative CXR: Right basilar consolidation suspicious for pneumonia. Advanced emphysema. No evidence of CHF. We will treat as community-acquired pneumonia with superimposed COPD exacerbation Continue Rocephin. Azithromycin deferred due to borderline QT prolongation, doxycycline 100 mg twice daily substitute Acute on chronic COPD/emphysema Continue Rocephin/Doxy. Doxy substituted for azithromycin due to borderline QT Convert Spiriva/Wixela to formulary equivalent Of note patient was going to switch from Wixela once his current prescription ran out We will treat with methylprednisolone 40 mg daily for concurrent COPD exacerbation BiPAP nightly GERD chronic and stable Patient underwent EGD for Schatzki ring with dilation 07/2022 Was noted at that time to have extensive intestinal metaplasia on biopsy requiring 3-year EGD follow-up Continue PPI History of cardiomyopathy chronic and stable Patient denies history of heart attack, ischemic [place]. Does have a history of EF 40-45% in 2013, and a past troponin elevation suspected due to demand Carvedilol continued ARB/spironolactone continued ICD is in place, patient reports this is never fired Former tobacco use In remission for 8 years, [id number] prior history with concurrent COPD/emphysema CTA 10/2021 was with severe emphysema, no PE, no suspicious nodules or evidence of malignancy at that time. Recommend annual low-dose lung cancer screening DVT prophylaxis: Dose reduced Lovenox, d dimer felt to be elevated from inflammation of pneuomnina Diet: Heart healthy Disposition: Medical telemetry for acute hypoxic respiratory failure and sinus tachycardia, downgrade to MedSurg if stable and PE eval negative CODE STATUS: Full code (2) COPD (chronic obstructive pulmonary disease): (3) Cardiac defibrillator in place: (4) Cardiomyopathy: (5) Hx of cardiomyopathy: (6) GERD (gastroesophageal reflux disease): Admission and Anticipated Discharge Date Admission Date: January 13, 2023 Subjective Patient with mild respiratory distress using accessory muscles of respirations tachypneic with pursed lip breathing Nonproductive cough Physical Exam Physical Exam: poor air movement, no wheeze no focal loss Results & Data Results & Data Vital Signs (Past 12 Hours) Vital Signs Temp Pulse Pulse Resp BP BP Pulse Ox 01/14/23 06:26 98.2 F 97 H 18 118/71 92 01/14/23 03:26 98.1 F 88 18 101/73 91 01/14/23 00:36 74 18 96/63 L 92 01/13/23 21:57 102 H 01/13/23 22:39 97.5 F L 80 18 98/65 L 94 O2 Del Method 01/14/23 06:26 Room Air 01/14/23 03:26 Room Air 01/14/23 00:36 Room Air 01/13/23 21:57 01/13/23 22:39 Room Air Laboratory Results reviewed cbc reviewed prp PG Care Time/CCT Total # of Minutes Spent Total Time Spent with Patient: Total time spent is greater than 50% in coordination of care (as documented) at patient's floor/unit and/or counseling patient: Coding Level of Care Code 77360 SUB INP/OBS CARE 235MIN Diagnoses CAP (community acquired pneumonia) J18.9 COPD (chronic obstructive pulmonary disease) J44.9 COPD type: unspecified COPD Cardiac defibrillator in place Z95.810 Cardiomyopathy I42.9 Hx of cardiomyopathy Z86.79 GERD (gastroesophageal reflux disease) K21.9 (2) COPD (chronic obstructive pulmonary disease) COPD type: unspecified COPD Qualified Code(s): J44.9 - Chronic obstructive pulmonary disease, unspecified
[2023-01-14] MEDS ORDERED: cefTRIAXone SODIUM 2,000 MG in DEXTROSE 5% 50 ML IV SCH (18:45)
--- NOTE | 2023-01-14 18:59 | Electrocardiogram Report ---
Test Reason : Blood Pressure : / mmHG Vent. Rate : 105 BPM Atrial Rate : 105 BPM P-R Int : 146 ms QRS Dur : 120 ms QT Int : 364 ms P-R-T Axes : 075 089 079 degrees QTc Int : 481 ms Sinus tachycardia with frequent Premature ventricular complexes Indeterminate axis Right bundle branch block Abnormal ECG When compared with ECG of 27-OCT-2021 08:45, ST no longer depressed in Anterior leads T wave inversion no longer evident in Anterior leads Confirmed by Tez Guzmán ([id number]) on 01/14/2023 6:59:24 PM Referred By: REFERRED SELF Confirmed By:Tez Guzmán
[2023-01-15] MEDS: PANTOprazole 40 MG TAB PO SCH (07:49)
[2023-01-15] MEDS: NICOTINE 14 MG/24 HR PATCH TD SCH (09:05)
[2023-01-15] MEDS: carvediloL 3.125 MG TAB PO SCH ×2 (09:06→21:08)
[2023-01-15] MEDS: CHOLECALCIFEROL 1,000 UNITS 25 MCG TAB PO SCH (09:06)
[2023-01-15] MEDS: DOXYCYCLINE HYCLATE 100 MG in DEXTROSE 5% 100 ML IV SCH ×2 (09:08→21:08)
[2023-01-15] MEDS: methylPREDNISolone 40 MG in SYRINGE 0 ML IV SCH (09:08)
[2023-01-15] MEDS: FLUTICASONE/VILANTEROL 100/25MCG 14 PUFFS/INHALER INH SCH (09:08)
[2023-01-15] MEDS: LOSARTAN POTASSIUM 25 MG TAB PO SCH (09:08)
[2023-01-15] MEDS: UMECLIDINIUM BROMIDE 62.5MCG/BLISTER 7 PUFFS/INHALER INH SCH (09:09)
[2023-01-15] MEDS: SPIRONOLACTONE 12.5 MG TAB PO SCH (09:09)
--- NOTE | 2023-01-15 12:57 | Hospitalist Progress Note ---
Date of Service January 15, 2023 Assessment & Plan (1) CAP (community acquired pneumonia): Plan: Community-acquired pneumonia, concurrent COPD exacerbation - Acute/unstable - high risk - COVID/flu/RSV negative - CXR: Right basilar consolidation suspicious for pneumonia. Advanced emphysema. No evidence of CHF. - Azithromycin deferred due to borderline QT prolongation, doxycycline 100 mg twice daily substitute - Discontinue Rocephin, no need for both Rocephin + Doxy and change Doxy to oral - Currently on room air at rest - 93% - Continue supplemental O2 with a goal pulse ox of 88-92% - still hypoxic with ambulation - Continue Methylprednisolone 40mg IV daily, ICS/LABA, and anticholinergic - BiPAP ordered for qHS - Will require 2-step prior to dc - Follows with pulm @ [facility] in [place] (2) Cardiomyopathy: Plan: Chronic/stable Patient denies history of heart attack, ischemic [place]. Does have a history of EF 40-45% in 2013, and a past troponin elevation suspected due to demand Carvedilol continued ARB/spironolactone continued ICD is in place, patient reports this is never fired (3) GERD (gastroesophageal reflux disease): Plan: Chronic and stable Patient underwent EGD for Schatzki ring with dilation 07/2022 Was noted at that time to have extensive intestinal metaplasia on biopsy requiring 3-year EGD follow-up Continue PPI Plan Add Lovenox for DVT ppx. RN walked patient to the bathroom this morning, pulse ox maintained 88% on way there but on way back dropped to 85% and pt was quite winded. Recovered with rest to 90% after about 3 minutes and was quite winded. He has no O2 at home. Will maintain inpt stay today and consider dc tomorrow. Plan to be d/w Dr. Duong. Admission and Anticipated Discharge Date Admission Date: January 13, 2023 Subjective Patient was seen on daily rounds this morning on rounds. He is resting comf ortably in bed, continues to have pursed lip breathing as observed yesterday by attending but denies dyspnea at rest. He has not yet been up to the bathroom. Cough has improved, is not always productive. Physical Exam Physical Exam: GENERAL: 68 yo well-developed, well-nourished M. AAOx4. NAD. LUNGS: pursed lip breathing observed. Diminished throughout with few end diffuse exp wheezes b/l. CARDIOVASCULAR: Regular rate and rhythm. Results & Data Results & Data Vital Signs (Past 12 Hours) Vital Signs Temp Pulse Pulse Resp BP Pulse Ox O2 Del Method 01/15/23 08:00 83 01/15/23 09:00 Room Air 01/15/23 08:20 37.0 C 88 20 122/79 93 Room Air 01/15/23 03:00 36.6 C 89 16 99/57 L 93 Room Air Laboratory Results 01/14/23 07:25 01/14/23 07:25 PG Care Time/CCT Total # of Minutes Spent Total Time Spent with Patient: Total time spent is greater than 50% in coordination of care (as documented) at patient's floor/unit and/or counseling patient: Coding Level of Care Code 81929 SUB INP/OBS CARE 2/35MIN Diagnoses CAP (community acquired pneumonia) J18.9 Cardiomyopathy I42.9 GERD (gastroesophageal reflux disease) K21.9
[2023-01-15] MEDS: ALBUT/IPRATROP 3MG/0.5MG NEB 3 ML VIAL NEB SCH ×2 (15:07→20:07)
[2023-01-15] MEDS: ENOXAPARIN INJ 40 MG/0.4 ML SYR SQ SCH (16:22)
[2023-01-16] MEDS: ALBUT/IPRATROP 3MG/0.5MG NEB 3 ML VIAL NEB SCH ×2 (07:24→10:53)
[2023-01-16] MEDS: LOSARTAN POTASSIUM 25 MG TAB PO SCH (07:45)
[2023-01-16] MEDS: carvediloL 3.125 MG TAB PO SCH (07:45)
[2023-01-16] MEDS: PANTOprazole 40 MG TAB PO SCH (07:45)
[2023-01-16] MEDS: CHOLECALCIFEROL 1,000 UNITS 25 MCG TAB PO SCH (07:46)
[2023-01-16] MEDS: ENOXAPARIN INJ 40 MG/0.4 ML SYR SQ SCH (07:46)
[2023-01-16] MEDS: methylPREDNISolone 40 MG in SYRINGE 0 ML IV SCH (07:46)
[2023-01-16] MEDS: SPIRONOLACTONE 12.5 MG TAB PO SCH (07:46)
[2023-01-16] MEDS: FLUTICASONE/VILANTEROL 100/25MCG 14 PUFFS/INHALER INH SCH (07:47)
[2023-01-16] MEDS: UMECLIDINIUM BROMIDE 62.5MCG/BLISTER 7 PUFFS/INHALER INH SCH (07:47)
[2023-01-16] MEDS: DOXYCYCLINE HYCLATE 100 MG in DEXTROSE 5% 100 ML IV SCH (07:52)
[2023-01-16] MEDS: NICOTINE 14 MG/24 HR PATCH TD SCH (07:54)
--- NOTE | 2023-01-16 07:54 | Hospitalist Progress Note ---
Date of Service January 16, 2023 Assessment & Plan (1) CAP (community acquired pneumonia): Plan: Community-acquired pneumonia, concurrent COPD exacerbation - Acute/unstable - high risk - COVID/flu/RSV negative - CXR: Right basilar consolidation suspicious for pneumonia. Advanced emphysema. No evidence of CHF. - Azithromycin deferred due to borderline QT prolongation, doxycycline 100 mg twice daily substitute - Discontinue Rocephin, no need for both Rocephin + Doxy and change Doxy to oral - Currently on room air at rest - 93% - Continue supplemental O2 with a goal pulse ox of 88-92% - still hypoxic with ambulation - Continue Methylprednisolone 40mg IV daily, ICS/LABA, and anticholinergic - BiPAP ordered for qHS - Will require 2-step prior to dc - Follows with pulm @ [facility] in [place] (2) Cardiomyopathy: Plan: Chronic/stable Patient denies history of heart attack, ischemic [place]. Does have a history of EF 40-45% in 2013, and a past troponin elevation suspected due to demand Carvedilol continued ARB/spironolactone continued ICD is in place, patient reports this is never fired (3) GERD (gastroesophageal reflux disease): Plan: Chronic and stable Patient underwent EGD for Schatzki ring with dilation 07/2022 Was noted at that time to have extensive intestinal metaplasia on biopsy requiring 3-year EGD follow-up Continue PPI Plan Add Lovenox for DVT ppx. RN walked patient to the bathroom this morning, pulse ox maintained 88% on way there but on way back dropped to 85% and pt was quite winded. Recovered with rest to 90% after about 3 minutes and was quite winded. He has no O2 at home. Will maintain inpt stay today and consider dc tomorrow. Plan to be d/w Dr. Duong. Admission and Anticipated Discharge Date Admission Date: January 13, 2023 Results & Data Results & Data Vital Signs (Past 12 Hours) Vital Signs Temp Pulse Pulse Resp BP BP Pulse Ox 01/16/23 07:26 88 01/16/23 07:24 90 18 92 01/16/23 04:25 103/72 01/16/23 03:37 36.7 C 78 16 101/49 L 91 01/15/23 23:10 36.4 C L 86 18 111/76 91 01/15/23 22:56 94 H 05/03/23 22:40 01/15/23 20:09 92 H 18 93 O2 Del Method 01/16/23 07:26 01/16/23 07:24 Room Air 01/16/23 04:25 01/16/23 03:37 Room Air 01/15/23 23:10 Room Air 01/15/23 22:56 01/15/23 22:40 Room Air 01/15/23 20:09 Room Air PG Care Time/CCT Total # of Minutes Spent Total Time Spent with Patient: Total time spent is greater than 50% in coordination of care (as documented) at patient's floor/unit and/or counseling patient: Coding Diagnoses CAP (community acquired pneumonia) J18.9 Cardiomyopathy I42.9 GERD (gastroesophageal reflux disease) K21.9
[2023-01-16 09:02] LABS: Hematocrit (blood only) 42.5 % (42.0-52.0); Hemoglobin 14.9 g/dl (14.0-18.0); Mean Corpuscular Hemoglobin 30.4 pg (25.0-34.0); Mean Corpuscular Hgb Conc 35.1 g/dL (32.0-36.0); Mean Corpuscular Volume 86.7 fL (80.0-100.0); Mean Platelet Volume 9.1 fL (9.4-12.4); Platelet Count 409 K/uL (130-400); RDW Coefficient of Variation 13.1 % (11.5-14.5); RDW Standard Deviation 41.1 fL (36.4-46.3); White Blood Count 15.84 K/ul (4.8-10.8)
[2023-01-16 09:28] LABS: Calcium 9.2 mg/dl (8.6-10.3); Magnesium 1.6 mg/dl (1.7-2.4); Potassium 3.9 mmol/L (3.5-5.1)
[2023-01-16 09:33] LABS: BUN Creatinine Ratio 23.6 (10-20); Creatinine Clr Calc Pharmacy 80.8 ml/min; Est GFR (African American) 110.3 ml/min; Est GFR (Non-African American) 95.2 ml/min
--- NOTE | 2023-01-16 10:20 | Discharge Summary ---
Date of Service January 16, 2023 Admission HPI Per Admitting Provider Friday started to have increasing shortness of breath with exertion. "With what little I didn't I just could breath and catch my breath." Appetite decreased. No chest pain or chest pressure. INcreased cough for 1-2 days, similar to maybe a little more than normal. Cough in not productive. Is having wheezing, notes this is chronic and hasn't changed much but the shortness of breath is worse than it usually is when he wheezes. No orthopnea, sleeps well on R side. Has had fevers and chills for 2 days. Loose bowels/1 episode of dark brown diarrhea which just started today. No vomiting. No epigastric pain. Urine has been 'deep copper and darker.' Peeing less than normal, no dysuria. Has not been eating/drinking well to feeling poorly overall. Denies skin changes, rash, erythema Hx of ICD. No history of heart attack. No stents or bipass. ICD has never fired. Denies heart failure. Not sure is he has a history of VF or VT. ICD was placed by [facility]. Does have history of reduced ejection fraction, patient reports he is not sure why this is an etiology has not been determined PCP is [facility]. Does not follow with any other PCP. Medical History: Reviewed Medications: Reviewed. Took meds this morning. Does not have Wixela with him. Almost out of home inhalers, notes he is going to switch to an equivalent when. Surgical History: Reviewed Family history: Reviewed Allergies: Reviewed. Lisinipril dry cough Social History: No curren ttobacco use. 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 No etoh use. Code Status:Full Admission Exam Per Admitting Provider General: Cachectic. Alert and oriented x3. Appears dyspneic with intermittent pursed lip breathing. Oxygen 9394 on room air, desats easily once HEENT: Atraumatic, normocephalic. Vision/Hearing intact. Pupils equal and reactive to Pulm: Basilar crackles, increased in the right lower lobe. Scattered end ex piratory wheezes. No rales or rhonchi Cardiac: Regular, tachycardia, -mrg. Radial pulses intact and symmetrical. Abdominal: Nontender, nondistended, soft. BS present. Ext: Thin. No edema. Moves upper and lower extremities equally. Sensation and strength in distal extremities grossly Principal Diagnosis COPD exacerbation vs atypical pneumonia Discharge Exam General: WD chronically ill appearing male sitting up in bed, on room air, no distress, occassional cough, wanting to go home HEENT: head normocephalic, atraumatic, mmm, trachea midline Resp: diminished in the bases w/ bibasilar crackles, improved w/ cough, faint end expiratory wheezing posterior lung rao, 94% on room air, clubbing of nails noted CV: RRR, no significant m/r/g, no pitting edema GI: +BS, soft/NT ; no mcghee MSK/Neuro: no focal deficit, no slurred speech, following commands Psych: AOx3, cooperative with exam Discharge Data Allergies Allergy/AdvReac Type Severity Reaction Status Date / Time fire ant Allergy Intermediate Swelling Verified 01/13/23 17:13 of Lip/Tongue/Throat lisinopril AdvReac Intermediate Cough Verified 01/13/23 17:13 Consultations 01/13/23 17:37 ED Decision to Admit Stat Ordered Studies Chest X-Ray 01/13/23 15:26 SINGLE VIEW CHEST CLINICAL HISTORY: Atypical chest pain. FINDINGS: 2 AP, portable, upright chest radiographs are compared to chest x-ray and chest CT dated 10/26/2021. The examination is degraded by portable technique and apical lordotic positioning. A single-lead cardiac AICD is unchanged in position and partially obscures the left upper chest. The heart is top normal for projection noting atherosclerotic calcification of the thoracic aorta. The pulmonary vasculature is noncongested. Advanced emphysema and chronic interstitial thickening is similar to previous. Airspace consolidation is seen at the right lung base. No large pleural effusion or pneumothorax is identified. The skeletal structures are osteopenic. The bony thorax is grossly intact. IMPRESSION: 1. Right basilar consolidation is typical for pneumonia/aspiration pneumonitis. Clinical correlation will be required and radiographic follow-up to resolution is recommended. 2. Advanced emphysema. 3. A cardiac AICD is in place. There is no radiographic evidence of congestive failure. ACT 112: Negative or not required by law. Electronically signed by: Guille Sequeira M.D. 01/13/2023 4:08 PM Chest X-Ray 01/16/23 07:50 SINGLE VIEW CHEST CLINICAL HISTORY: Atypical chest pain. Follow-up consolidation. FINDINGS: An AP, portable, upright chest radiograph is compared to study dated 01/13/2023 and correlated with chest CT dated 10/26/2021. The examination is degraded by portable technique and apical lordotic positioning. A single-lead cardiac AICD is unchanged in position and partially obscures the left upper chest. The heart is top normal for projection noting atherosclerotic calcification of the thoracic aorta. The pulmonary vasculature is noncongested. Advanced emphysema and chronic interstitial thickening is similar to previous. Airspace consolidation is again seen at the right lung base. No large pleural effusion or pneumothorax is identified. The skeletal structures are osteopenic. The bony thorax is grossly intact. IMPRESSION: 1. Again seen is right basilar consolidation. This has minimally cleared as compared to yesterday. Continued follow-up to resolution is recommended. 2. Advanced emphysema. 3. A cardiac AICD is in place. There is no radiographic evidence of congestive failure. ACT 112: Negative or not required by law. Electronically signed by: Guille Sequeira M.D. 01/16/2023 2:53 PM Hospital Course (1) CAP (community acquired pneumonia): Community-acquired pneumonia, concurrent COPD exacerbation COVID/Flu/RSV negative CXR on admission w/ R basilar consolidation suspicious for pneumonia, noting advanced emphysema. No evidence for CHF Placed on Ceftriaxone/Doxy on admission, rocpephin discontinued subsequently and has been titrated to room air and planning to complete 5 day course of doxycycline at discharge IV steroids w/ methylprednisolone and converted to 40mg daily to complete course at discharge CXR w/ improvement in R basilar consolidation but will require outpatient follow up --> recommend obtaining repeat CXR outpatient in f/u with PCP/pulmonology in [facility] 2 step prior to d/c without need for supplemental oxygen -- remained stable at 94% on RA Mag checked prior to dc given wheezing/COPD and was low --IV replacement ordered prior to discharge Continued home/hospital equivalent inhalers Discussed keeping additional day overnight, however patient wanting to go home. GIven improvement in breathing/titrated to room air, did convert to PO prednisone and discharged according to plan as outlined above and will need repeat chest imaging to ensure resolution vs extension of antibiotic duration (2) Cardiomyopathy: Chronic/stable Patient denies history of heart attack, ischemic MN. Does have a history of EF 40-45% in 2013, and a past troponin elevation suspected due to demand Carvedilol continued ARB/spironolactone continued ICD is in place, patient reports this is never fired (3) GERD (gastroesophageal reflux disease): Chronic and stable Underwent EGD w/ schatzki ring/dilation Jul 2022 Was noted at that time to have extensive intestinal metaplasia on biopsy requiring 3-year EGD follow-up Continued PPI Lovenox SQ for DVT proph added while inpatient Total Time Total Time Spent Total Time Spent (In Minutes): 45 Discharge Plan Discharge Items Patient Disposition: Home - Self-Care Reason For Visit: SOB, CAP Discharge Diagnosis: Pneumonia/COPD exacerbation Goals: You have been hospitalized for an acute medical problem. During your stay at [facility], we have made an effort to correct the problem that brought you to the hospital while keeping you as comfortable as possible. Medications were used to bring your condition under control and your discharge instructions will include directions for any medications you should take after leaving the hospital. Please make sure you see your Primary Care Provider as part of your follow up plan. Activity: As commented below Non-emergency contact: Primary Care Provider Call non-emergency contact if: you have any medication questions, your symptoms worsen and your pain is not controlled Follow-up/Referrals: [facility] [Primary Care Provider] - (PLEASE CALL YOUR PRIMARY CARE PROVIDER TO SCHEDULE A DISCHARGE FOLLOW-UP APPOINTMENT WITHIN 7-10 DAYS) Diet: Heart Healthy Addtl Attending Provider Instructions: You have been hospitalized for shortness of breath/COPD exacerbation/pneumonia. Treatment with antibiotics and nebulizers, steroids, were given and you have been titrated off oxygen. We will be sending you on antibiotics with doxycycline 100mg by mouth twice daily for another 2 days to complete the course. You will be on prednisone 40mg by mouth once daily for 5 days. You should follow up with primary care in the next 7-10 days to monitor your progress. Please return to the ER with any increased shortness of breath, sputum production, or for any other symptoms concerning for you. It has been a pleasure being a part of the medical team providing for you while you have been in the hospital. Take care! Pending Studies at Discharge: Yes Studies:: Blood cultures -- no growth to date Stand-Alone Forms: My [facility], Smoking Cessation Medications and DC Order Prescriptions: New prednisone 20 mg Tablet 40 mg PO DAILY 3 Days Qty: 6 0RF doxycycline hyclate 100 mg capsule 100 mg PO BID 3 Days Qty: 6 0RF Continued cholecalciferol (vitamin D3) 25 mcg (1,000 unit) capsule 25 mcg PO QAM pantoprazole 40 mg tablet,delayed release (DR/EC) 40 mg PO DAILY Qty: 90 3RF carvedilol 6.25 mg Tablet 3.125 mg PO BID spironolactone 25 mg Tablet 12.5 mg PO QAM losartan 25 mg Tablet 12.5 mg PO QAM Spiriva Respimat 2.5 mcg/actuation Mist 2 puff INHALATION QAM albuterol sulfate 2.5 mg /3 mL (0.083 %) Solution For Nebulization 2.5 mg INHALATION QID PRN (Reason: Shortness Of Breath) fluticasone propion-salmeterol [Wixela Inhub] 500-50 mcg/dose Blister With Device 1 inh INHALATION BID albuterol sulfate 90 mcg/actuation Hfa Aerosol Inhaler 2 puff INHALATION Q6H PRN (Reason: Shortness Of Breath) Discharge Orders: Discharge Order (Routine); Ordered 01/16/23 Ordered By: Samira Sen/Other Patient Handouts: Prednisone Oral Tablet, Doxycycline Oral Tablet Admission Data Admit Date/Time: 01/13/23 18:48 Attending Provider: Marc eH Admit Provider: Gerry Burnham Primary Care Provider: [facility] Other Providers: Gerry Burnham Other Interventions: Discharge Summary Assessment (RN) Last Done: 01/16/23 14:25 Supervising Physician Co-Signing Physician Notes The patient was seen by me. The chart was reviewed. Case discussed with JOSSY Tim. Agree with assessment and plan. He will be discharged home today, January 16, on an oral antibiotic and prednisone Coding Level of Care Code 39014 INP/OBS DISCH >30 MIN Diagnoses CAP (community acquired pneumonia) J18.9 Cardiomyopathy I42.9 GERD (gastroesophageal reflux disease) K21.9
[2023-01-16] MEDS ORDERED: predniSONE 20 MG TAB PO SCH (10:30)
[2023-01-16] MEDS: MAGNESIUM SULFATE / D5W 1 GM/100 ML BAG IV SCH ×2 (10:51→13:02)
--- NOTE | 2023-01-16 14:54 | XRay Report ---
SINGLE VIEW CHEST CLINICAL HISTORY: Atypical chest pain. Follow-up consolidation. FINDINGS: An AP, portable, upright chest radiograph is compared to study dated 01/13/2023 and correlate d with chest CT dated 10/26/2021. The examination is degraded by portable technique and apical lordoti c positioning. A single-lead cardiac AICD is unchanged in position and partially obscures the left up per chest. The heart is top normal for projection noting atherosclerotic calcification of the thoraci c aorta. The pulmonary vasculature is noncongested. Advanced emphysema and chronic interstitial thick ening is similar to previous. Airspace consolidation is again seen at the right lung base. No large p leural effusion or pneumothorax is identified. The skeletal structures are osteopenic. The bony thora x is grossly intact. IMPRESSION: 1. Again seen is right basilar consolidation. This has minimally cleared as compared to yesterday. Co ntinued follow-up to resolution is recommended. 2. Advanced emphysema. 3. A cardiac AICD is in place. There is no radiographic evidence of congestive failure. ACT 112: Negative or not required by law. Electronically signed by: Guille Sequeira M.D. 01/16/2023 2:53 PM
== END 2023-01-16 15:15 | disposition home or self-care (01) | DRG 194 ==
LOC: ED 14:58 → SUATTDRO 18:48 → 2N 18:48

== ENCOUNTER 2024-08-07 14:28 | Inpatient (IN) ==
--- NOTE | 2024-08-07 14:59 | Emergency Department Note ---
Impression & Plan Acute exacerbation of chronic obstructive pulmonary disease, Acute bronchitis, Acute respiratory distress ED Provider Note NAME: GALO WAGONER AGE: 69 SEX: M : 1955 ARRIVES VIA: Ambulance INFORMANT: Patient, EMS ED PROVIDER(S): Brody Hendricks DO CHIEF COMPLAINT: Shortness breath HPI: The patient is a 69-year-old male who presented to the emergency department for an evaluation of shortness of breath. The patient states he has a history of COPD. He has been having worsening symptoms since the beginning of the month. He was started on a course of an antibiotic by his primary care physician. He denies having any hemoptysis. He denies having any chest pain but does have back pain. The back pain is not new. He has a history of thoracic compression fracture. The patient has not noticed any abdominal pain. He has noticed some increased swelling in his legs. He has not been very active recently. The patient was started on BiPAP by the prehospital personnel because of respiratory distress as well as hypoxia. The patient is significantly improved upon my evaluation. The patient did receive a DuoNeb at home by himself as well as 1 en route by the prehospital personnel. ROS: See above HPI for pertinent positives & negatives. A total of 10 systems reviewed and were otherwise negative. PAST MEDICAL HISTORY: See Below PAST SURGICAL HISTORY: See Below FAMILY HISTORY: See Below SOCIAL HISTORY: See Below HOME MEDICATIONS: See Below ALLERGIES: See Below VITALS: See Below PHYSICAL EXAMINATION: GENERAL: The patient is awake and alert. The patient is anxious appearing. EYES: The conjunctivae are clear. The pupils are round and reactive. EARS, NOSE, MOUTH AND THROAT: The nose is without any evidence of any deformity. NECK: The neck is nontender and supple. RESPIRATORY: Diminished breath sounds are noted throughout. There is wheezing in both upper lung rao. There is mild conversational dyspnea noted. CARDIOVASCULAR: Regular rate and rhythm noted there no murmurs rubs or gallops normal S1 normal S2. GASTROINTESTINAL: The abdomen is soft. Abdomen is nontender. MUSCULOSKELETAL/EXTREMITIES: There is no evidence of gross deformity full range of motion is noted in the hips and shoulders. SKIN: Skin is warm and dry. Pedal edema was noted bilaterally.. NEUROLOGIC: Patient is awake alert and oriented x3. MEDICAL DECISION MAKING: The pain is a 69-year-old male who has a history of COPD who presented to the emergency department for an evaluation of difficulty breathing. The patient was noted to have respiratory distress prior to arrival. He was placed on BiPAP. The patient was able to come off of BiPAP after breathing treatment. He was treated with IV steroids IV antibiotics as well in the emergency department. I discussed the patient's laboratory and radiographic studies with him. He was reevaluated multiple times. He continues to have pursed lip breathing but oxygen saturation and vital signs are much more reassuring. [facility] have agreed to evaluate the patient in the emergency department for further management and disposition. Triage Nursing notes reviewed. Prior medical records reviewed Vital Signs: reviewed and remarkable for tachycardia and hypoxia. Differential diagnosis: Reactive airway disease, pneumonia, pneumothorax, COPD, CHF, infections, cardiac ischemia, pulmonary embolism, musculoskeletal, gastrointestinal, as well as other pathologies. ER treatment provided: See below Diagnostics interpreted by me: ECG: EKG was obtained in the emergency department. My interpretation is sinus tachycardia at 103 bpm. There is incomplete right pulmonary trot pattern noted. PVCs were noted. Nonspecific ST and T wave abnormalities were noted. This was compared to a tracing from January 13, 2023. The ST segment abnormalities were present however the T wave inversions appear new compared to the previous tracing. Cardiac Monitoring: An order was placed for continuous cardiac monitoring. The monitor shows a rate of 110 bpm with sinus tachycardia. Laboratory studies: As stated above and show below. Imaging studies: See below. Radiographic imaging was reviewed by myself Consultation(s): Dr[facility] Baltazar [facility]. I discussed this case with CHAZ who [facility] ED COURSE: Procedures: none Critical Care: I have personally spent greater than 45 minutes of critical care time in the direct management of this patient. This includes bedside care, interpretation of diagnostic studies, and testing, discussion with consultants, patient, and family members, and other required patient management activities. This 45 minutes is in excess of all separately billable procedures. Past Med/Surg History Problem List (Updated 08/07/24 @ 20:20 by Background Daemon) Hypertension Acute on chronic heart failure Acute respiratory distress (Acute) Acute bronchitis (Acute) Acute exacerbation of chronic obstructive pulmonary disease (Acute) Gastric intestinal metaplasia Pneumonia (Acute) GERD (gastroesophageal reflux disease) Dysphagia reason for upcoming EGD CAP (community acquired pneumonia) GERD (gastroesophageal reflux disease) Encounter for pre-operative examination Dehydration (Acute) Hx of cardiomyopathy (Acute) Hx of cardiomyopathy (Acute) Hx of cardiomyopathy (Acute) Hypotension (Acute) Pneumonia (Acute) resolved Severe sepsis (Acute 01/13/14) when had pneumonia > resolved Syncope (Acute) Back pain due to injury Elevated troponin I level Leukocytosis Tachypnea Acute exacerbation of chronic obstructive pulmonary disease (Acute) Hypoxia (Acute) Lumbar contusion (Acute) Fall (Acute) Acute respiratory failure with hypoxia Abdominal pain Elevated bilirubin Dysphagia COPD (chronic obstructive pulmonary disease) (Acute) controlled with regular inhalers, rare res inh use Cardiomyopathy (Chronic) Cardiac defibrillator in place (Chronic) placed in 2013 > [employer] > last checked approx 2 mos ago > follows with cardio at [facility] in [place] > placed for cardiomyopathy per pt and irregular heart beats Medical History Hypertension T8 vertebral fracture healed on own > does get pain to area occasionally Kidney stones passed on own Low blood pressure happens on occasion History of COVID-19 Apr 22, 2022 > tested at [facility] in [place] > sore throat, chills, loss of taste and smell, no appetite > taste is just now coming back Emphysema of lung Surgical History History of cardiac cath 2003 > no stents Hx of vasectomy Hx of inguinal hernia repair History of tooth extraction Family History Other Family history non-contributory Social History Smoking Status: Former smoker Tobacco Type: Cigarettes packs per day: 2; Cigarettes Per Day: 20; Second Hand Exposure: Yes; Do You Dip or Chew Tobacco: No; Hx Alcohol Use: No Hx Substance Use: No Preferred Language: Khmer Communication Ability: Effective Medical Device Required: No Beliefs That Will Affect Care: None marital status: Current Living Situation: Family Current Living Situation Comment: Cousin lives with him current occupational status: retired Feels Safe at Home: Yes Assistive Devices: Glasses and Scooter/Electric Scooter Allergies Allergies Allergy/AdvReac Type Severity Reaction Status Date / Time fire ant Allergy Intermediate Swelling Verified 04/20/24 13:26 of Lip/Tongue/Throat lisinopril AdvReac Intermediate Cough Verified 04/20/24 13:26 Home Meds Home Medications Medication Instructions Recorded Confirmed losartan 25 mg tablet 12.5 mg PO QPM 11/11/19 08/07/24 albuterol sulfate 2.5 mg/3 mL 2.5 mg inhalation QID PRN 10/26/21 08/07/24 (0.083 %) solution for nebulization Shortness Of Breath albuterol sulfate 90 mcg/actuation 2 puff inhalation Q6H PRN 10/26/21 08/07/24 aerosol inhaler Shortness Of Breath cholecalciferol (vitamin D3) 25 25 mcg PO QAM 06/03/22 08/07/24 mcg (1,000 unit) capsule budesonide 160 mcg-glycopyr 9 2 inh inhalation BID 02/04/23 08/07/24 mcg-formot 4.8 mcg/actuation HFA inhaler (Diarizeztri Aerosphere) spironolactone 25 mg tablet 25 mg PO QAM 02/11/23 08/07/24 metoprolol succinate 50 mg 50 mg PO QAM 04/13/24 08/07/24 tablet,extended release 24 hr roflumilast 500 mcg tablet 500 mcg PO .Q OTHER DAY 04/13/24 08/07/24 (Daliresp) amoxicillin 875 mg-potassium 1 tab PO BID 08/07/24 08/07/24 clavulanate 125 mg tablet Previous Rx's Medication Instructions Recorded oxycodone 5 mg tablet 5 mg PO Q4H PRN pain #15 tabs 07/20/24 Results & Data (ED) Vital Signs Vital Signs - 24 hr 08/07/24 14:15 08/07/24 14:36 08/07/24 14:36 Temperature 36.6 C Temperature Source Oral Pulse Rate 97 H Pulse Rate [Apical] Pulse Rhythm Regular Pulse Rhythm [Apical] Pulse Strength Normal Pulse Strength [Apical] Respiratory Rate 23 Respiratory Effort / Characteristics Labored Respiratory Depth Normal Deep Blood Pressure 104/78 Blood Pressure [Right Arm] Blood Pressure Mean 86 Blood Pressure Mean [Right Arm] Blood Pressure Position Sitting Blood Pressure Position [Right Arm] Pulse Oximetry 100 100 Oxygen Delivery Method BiPAP BiPAP BiPAP Oxygen Flow Rate Fraction of Inspired Oxygen Sepsis Recent Fever Within 48 Hours No Sepsis New/Unexplained Change in Mental Status No Sepsis Action Taken by Nursing No Action Required 08/07/24 14:44 08/07/24 15:04 08/07/24 15:27 Temperature Temperature Source Pulse Rate 91 H Pulse Rate [Apical] 107 H Pulse Rhythm Pulse Rhythm [Apical] Pulse Strength Pulse Strength [Apical] Respiratory Rate 16 18 Respiratory Effort / Characteristics Spontaneous Spontaneous Respiratory Depth Normal Blood Pressure Blood Pressure [Right Arm] Blood Pressure Mean Blood Pressure Mean [Right Arm] Blood Pressure Position Blood Pressure Position [Right Arm] Pulse Oximetry 100 100 100 Oxygen Delivery Method Nasal Cannula Nasal Cannula Oxygen Flow Rate 4 4 Fraction of Inspired Oxygen 30 Sepsis Recent Fever Within 48 Hours Sepsis New/Unexplained Change in Mental Status Sepsis Action Taken by Nursing 08/07/24 16:05 08/07/24 16:30 08/07/24 16:36 Temperature Temperature Source Pulse Rate 111 H 110 H Pulse Rate [Apical] 111 H Pulse Rhythm Pulse Rhythm [Apical] Regular Pulse Strength Pulse Strength [Apical] Normal Respiratory Rate 22 20 Respiratory Effort / Characteristics Respiratory Depth Blood Pressure Blood Pressure [Right Arm] 117/85 Blood Pressure Mean Blood Pressure Mean [Right Arm] 95 Blood Pressure Position Blood Pressure Position [Right Arm] Sitting Pulse Oximetry 99 98 Oxygen Delivery Method Nasal Cannula Nasal Cannula Oxygen Flow Rate 2 2 Fraction of Inspired Oxygen Sepsis Recent Fever Within 48 Hours Sepsis New/Unexplained Change in Mental Status Sepsis Action Taken by Shelter Medications Current Medication List: was personally reviewed by me Laboratory Data Attestation: I reviewed the patient's lab results. 08/07/24 14:40 08/07/24 14:40 Lab Results 08/07/24 08/07/24 08/07/24 Range/Units 14:40 15:08 15:29 WBC 9.11 (4.8-10.8) K/ul RBC 4.77 (4.70-6.10) M/uL Hgb 14.3 (14.0-18.0) g/dl Hct 43.4 (42.0-52.0) % MCV 91.0 (80.0-100.0) fL MCH 30.0 (25.0-34.0) pg MCHC 32.9 (32.0-36.0) g/dL RDW Std Deviation 46.5 H (36.4-46.3) fL RDW Coeff of Renee 13.9 (11.5-14.5) % Plt Count 435 H (130-400) K/uL MPV 9.5 (9.4-12.4) fL Immature Gran % (Auto) 1.1 % Neut % (Auto) 84.0 % Lymph % (Auto) 6.6 % Buchanan % (Auto) 7.1 % Eos % (Auto) 0.8 % Baso % (Auto) 0.4 % Neut # (Auto) 7.65 H (1.40-6.50) K/uL Lymph # (Auto) 0.60 L (1.20-3.40) K/uL Buchanan # (Auto) 0.65 H (0.11-0.59) K/uL Eos # (Auto) 0.07 (0.00-0.50) K/uL Baso # (Auto) 0.04 (0.00-0.20) K/uL Immature Gran # (Auto) 0.10 (0.01-0.20) K/uL PT 11.9 (9.0-12.0) Seconds INR 1.1 (0.9-1.1) APTT 25 (21-31) Seconds PTT Ratio 0.9 VBG pH 7.30 L (7.36-7.41) VBG pCO2 61 H (38-50) mmHg VBG pO2 32 mmHg VBG HCO3 30 mmol/L VBG O2 Saturation < 60.0 % VBG Base Excess 2.0 mEq/L Sodium 138 (136-145) mmol/L Potassium 4.0 (3.5-5.1) mmol/L Chloride 102 (98-107) mmol/L Carbon Dioxide 30 (21-32) mmol/L Anion Gap 6 (3-11) BUN 11 (6-23) mg/dl Creatinine 0.83 (0.6-1.4) mg/dl Est Cr Clr Drug Dosing 69.1 ml/min eGFR 94.15 BUN/Creatinine Ratio 13.3 (10-20) Glucose 96 (70-99(Fasting)) mg/dl Calcium 9.2 (8.6-10.3) mg/dl Magnesium 1.9 (1.7-2.4) mg/dl Total Bilirubin 1.3 H (0.2-1.0) mg/dl AST 19 (13-39) U/L ALT 16 (7-52) U/L Alkaline Phosphatase 67 (34-104) U/L Troponin I High Sens 11.5 (0-20) pg/ml B-Natriuretic Peptide 536 H (0-100) pg/ml Total Protein 6.4 (6.0-8.3) gm/dl Albumin 4.0 (3.4-5.0) gm/dl Globulin 2.4 L (2.5-4.0) gm/dl Albumin/Globulin Ratio 1.7 (0.9-2) Adenovirus (PCR) Not Detected (NotDetected) B. pertussis DNA (PCR) Not Detected (NotDetected) B.parapertussis DNA PCR Not Detected (NotDetected) C. pneumoniae DNA (PCR) Not Detected (NotDetected) Coronavirus OC43 (PCR) Not Detected (NotDetected) Coronavirus HKU1 (PCR) Not Detected (NotDetected) Coronavirus 229E (PCR) Not Detected (NotDetected) SARS-CoV-2 (PCR) Not Detected (NotDetected) Coronavirus NL63 (PCR) Not Detected (NotDetected) Human Metapneumovir PCR Not Detected (NotDetected) Influenza Type A (PCR) Not Detected (NotDetected) Influenza Type B (PCR) Not Detected (NotDetected) M. pneumoniae (PCR) Not Detected (NotDetected) Parainfluenza 1 (PCR) Not Detected (NotDetected) Parainfluenza 2 (PCR) Not Detected (NotDetected) Parainfluenza 3 (PCR) Not Detected (NotDetected) Parainfluenza 4 (PCR) Not Detected (NotDetected) RSV (PCR) Not Detected (NotDetected) Entero/Rhino (PCR) Not Detected (NotDetected) Administered Medications Discontinued Medications Albuterol (Albut/Ipratrop 3mg/0.5mg Neb 3 Ml Vial) 12 ml NEB ONE ONE; Protocol Stop: 08/07/24 14:52 Last Admin: 08/07/24 15:27 Dose: 12 ml Documented By: KMS Albuterol (Albut/Ipratrop 3mg/0.5mg Neb 3 Ml Vial) Confirm Administered Dose 12 ml .ROUTE .STK-MED ONE Stop: 08/07/24 14:55 Last Admin: 08/07/24 15:23 Dose: Not Given Documented By: ISELA Furosemide (Furosemide Inj 20 Mg/2 Ml Vial) 20 mg IV ONE ONE Stop: 08/07/24 17:49 Last Admin: 08/07/24 18:41 Dose: 20 mg Documented By: ISELA Ceftriaxone Sodium (Rocephin) 2,000 mg in 50 mls @ 100 mls/hr IV NOW STA Stop: 08/07/24 16:56 Last Infusion: 08/07/24 17:21 Dose: Infused Documented By: Admin: 08/07/24 16:48 Dose: 100 mls/hr Documented By: ISELA Ioversol (Optiray 320 125ml) 119 ml IV ONCE ONE Stop: 08/07/24 18:39 Last Admin: 08/07/24 18:38 Dose: 119 ml Documented By: SHAHEEN Methylprednisolone (Methylprednisolone 125 Mg/2 Ml Vial) 125 mg IV NOW STA Stop: 08/07/24 14:52 Last Admin: 08/07/24 15:12 Dose: 125 mg Documented By: ISELA Imaging Data Attestation: I personally reviewed and interpreted this imaging study as follows: My Impression: 1 view chest x-ray was obtained in the emergency department. My interpretation is hyperinflation noted, there is no free air, there is no definite filtrate, final report below. Radiologist's Impression: Chest X-Ray 08/07/24 14:51 EXAM: Radiograph of the Chest 1 View INDICATION: Dyspnea. TECHNIQUE: Frontal view of the chest. COMPARISON: 07/20/2024 FINDINGS: Limitations: The left upper lung is partially obscured by the pacing device. Lungs and pleural spaces: Stable emphysematous changes. Stable mild vascular crowding and minimal airway thickening in the lower lung zones. No consolidation or pulmonary edema. No pleural effusion or pneumothorax. Heart: Shape and configuration within normal limits allowing for technique. Mediastinum: Normal contour. Bones/joints: No fracture, erosion or dislocation. Soft tissues: No abnormality noted. No radiopaque foreign body noted. Tubes, lines and devices: Stable cardiac defibrillator lead in the right ventricle. Upper abdomen: No abnormality noted. IMPRESSION: Emphysema with stable mild acute and/or chronic bronchitis. No pneumonia. ACT 112: Negative or not required by law. Electronically signed by Nydia Moon 08-07-2024 3:35 PM Chest CTA 08/07/24 17:47 EXAM: CT Angiography Chest With Intravenous Contrast INDICATION: Dyspnea. TECHNIQUE: Axial computed tomographic angiography images of the chest with intravenous contrast. Sagittal and coronal reformatted images were created and reviewed. This CT exam was performed using one or more of the following dose reduction techniques: automated exposure control, adjustment of the mA and/or kV according to patient size, and/or use of iterative reconstruction technique. MIP reconstructed images were created and reviewed. CONTRAST: 119ml of Optiray 320 was administered intravenously. COMPARISON: 07/20/2024 FINDINGS: Limitations: Respiratory motion limits assessment of small odor lower lobe pulmonary arterial branches. Pulmonary arteries: No pulmonary embolus identified. Aorta: No acute change noted. No thoracic aortic aneurysm or dissection. Lungs and pleural spaces: Stable severe bullous emphysema. No interval change and numerous subcentimeter calcified and noncalcified nodules scattered in the right upper lobe. Stable 3 mm fissural nodule right major fissure. No bronchiectasis, honeycombing or reticulation. Stable coarse scarring in the right lower lobe. No pleural effusion or pneumothorax. Heart: Cardiomegaly noted. Cardiac pacing device noted. Metallic artifact limits assessment of lead integrity. No significant pericardial effusion. No evidence of RV dysfunction. Thyroid: 1 cm left thyroid nodule present. No further assessment required. Bones/joints: The bones are demineralized. Acute to subacute T5 compression fracture has occurred since the prior study with diffuse approximate 40% height loss. No retropulsion. Soft tissues: No abnormality noted. Lymph nodes: No abnormality noted. No enlarged lymph nodes. IMPRESSION: 1. No pulmonary embolus identified. 2. There is an acute to subacute T5 compression fracture new since 07/20/2024 with roughly 40% height loss. No retropulsion. ACT 112: Negative or not required by law. Electronically signed by Nydia Moon 08-07-2024 7:08 PM Discharge Plan Visit Data Chief Complaint: Shortness of Breath/Dyspnea Stated Complaint: SOB ED Provider: Brody Hendricks Discharge Problem: Acute exacerbation of chronic obstructive pulmonary disease, Acute bronchitis, Acute respiratory distress Patient Disposition: Being Evaluated by Hospitalist Discharge Instructions Interventions: ED Discharge Assessment Last Done: 11/23/24 20:20 Discharge Problem: Acute bronchitis Qualifiers: Bronchitis organism: unspecified organism Qualified Code(s): J20.9 - Acute bronchitis, unspecified
[2024-08-07] MEDS: methylPREDNISolone 125 MG/2 ML VIAL IV STA (15:12)
[2024-08-07] MEDS: ALBUT/IPRATROP 3MG/0.5MG NEB 3 ML VIAL ONE (15:23)
[2024-08-07 15:26] LABS: Basophils # (auto) 0.04 K/uL (0.00-0.20); Basophils % (auto) 0.4 %; Eosinophils # (auto) 0.07 K/uL (0.00-0.50); Eosinophils % (auto) 0.8 %; Hematocrit (blood only) 43.4 % (42.0-52.0); Hemoglobin 14.3 g/dl (14.0-18.0); Immature Granulocytes % (auto) 1.1 %; Lymphocytes % (auto) 6.6 %; Mean Corpuscular Hgb Conc 32.9 g/dL (32.0-36.0); Mean Platelet Volume 9.5 fL (9.4-12.4); Monocytes # (auto) 0.65 K/uL (0.11-0.59); Monocytes % (auto) 7.1 %; Neutrophils # (auto) 7.65 K/uL (1.40-6.50); Platelet Count 435 K/uL (130-400); RDW Coefficient of Variation 13.9 % (11.5-14.5); RDW Standard Deviation 46.5 fL (36.4-46.3); Red Blood Count 4.77 M/uL (4.70-6.10); White Blood Count 9.11 K/ul (4.8-10.8)
[2024-08-07] MEDS: ALBUT/IPRATROP 3MG/0.5MG NEB 3 ML VIAL NEB ONE (15:27)
[2024-08-07 15:35] LABS: HCO3 VBG 30 mmol/L; Oxygen Saturation VBG < 60.0 %; PCO2 VBG 61 mmHg (38-50); PO2 VBG 32 mmHg
--- NOTE | 2024-08-07 15:37 | XRay Report ---
EXAM: Radiograph of the Chest 1 View INDICATION: Dyspnea. TECHNIQUE: Frontal view of the chest. COMPARISON: 07/20/2024 FINDINGS: Limitations: The left upper lung is partially obscured by the pacing device. Lungs and pleural spaces: Stable emphysematous changes. Stable mild vascular crowding and minimal airway thickening in the lower lung zones. No consolidation or pulmonary edema. No pleural effusion or pneumothorax. Heart: Shape and configuration within normal limits allowing for technique. Mediastinum: Normal contour. Bones/joints: No fracture, erosion or dislocation. Soft tissues: No abnormality noted. No radiopaque foreign body noted. Tubes, lines and devices: Stable cardiac defibrillator lead in the right ventricle. Upper abdomen: No abnormality noted. IMPRESSION: Emphysema with stable mild acute and/or chronic bronchitis. No pneumonia. ACT 112: Negative or not required by law. Electronically signed by Nydia Moon 08-07-2024 3:35 PM
[2024-08-07 15:42] LABS: Albumin Globulin Ratio 1.7 (0.9-2); BUN Creatinine Ratio 13.3 (10-20); Bilirubin,Total 1.3 mg/dl (0.2-1.0); Calcium 9.2 mg/dl (8.6-10.3); Creatinine Clr Calc Pharmacy 69.1 ml/min; Globulin 2.4 gm/dl (2.5-4.0); Magnesium 1.9 mg/dl (1.7-2.4); Total Protein 6.4 gm/dl (6.0-8.3)
[2024-08-07 15:49] LABS: Troponin I High Sensitivity 11.5 pg/ml (0-20)
[2024-08-07 15:54] LABS: INR 1.1 (0.9-1.1); Partial Thromboplastin Ratio 0.9; Partial Thromboplastin Time 25 Seconds (21-31); Prothrombin Time 11.9 Seconds (9.0-12.0)
[2024-08-07 16:14] LABS: Adenovirus PCR Not Detected (NotDetected); Bordetella parapertussis PCR Not Detected (NotDetected); Bordetella pertussis PCR Not Detected (NotDetected); Chlamydia pneumoniae PCR Not Detected (NotDetected); Coronavirus 229E PCR Not Detected (NotDetected); Coronavirus CoV-2 (COVID19)PCR Not Detected (NotDetected); Coronavirus HKU1 PCR Not Detected (NotDetected); Coronavirus NL63 PCR Not Detected (NotDetected); Coronavirus OC43PCR Not Detected (NotDetected); Human Metapneumovirus PCR Not Detected (NotDetected); Influenza A PCR Not Detected (NotDetected); Influenza B PCR Not Detected (NotDetected); Mycoplasma pneumoniae PCR Not Detected (NotDetected); Parainfluenza Virus 1 PCR Not Detected (NotDetected); Parainfluenza Virus 2 PCR Not Detected (NotDetected); Parainfluenza Virus 3 PCR Not Detected (NotDetected); Parainfluenza Virus 4 PCR Not Detected (NotDetected); Respiratory Syncytial VirusPCR Not Detected (NotDetected); Rhinovirus/Enterovirus PCR Not Detected (NotDetected)
--- NOTE | 2024-08-07 16:37 | History & Physical Report ---
Date of Service August 07, 2024 Assessment & Plan (1) Acute respiratory failure with hypoxia: Plan: Worsening SOB at rest and with exertion since 07/20 Patient reports he began having "attacks" where he could not breathe starting 08/06 Called EMS at a friend's house on 08/07; SpO2 70% on RA, placed on BiPAP en route VB.30/61/32/30 Patient was able to be weaned off onto nasal cannula in the ED Not on supplemental oxygen at baseline Chest CTA ordered, pending to assess for pulmonary embolism BioFire negative No leukocytosis; afebrile Suspect this is a combination of pulmonary factors with the major contributors being acute COPD + CHF exacerbations Given tachycardia in the ED, DDx does include pulmonary embolism at this time Residual PNA is also within the differential, however less likely given recent course of Augmentin and no leukocytosis Titrate supplemental oxygen as needed to maintain SpO2 89-92% Continuous pulse oximetry A.m. CBC, BMP, VBG (2) Acute on chronic heart failure: Plan: Worsening SOB at rest + orthopnea Worsening LE edema x 3 days prior to admission He reports he takes spironolactone for his heart failure, but believes he has not been on Lasix in the past BNP 536 on arrival (most recently 196 on 01/13/2023) No echocardiogram on file Echocardiogram ordered, pending Daily weights Strict I&O monitoring Heart healthy, low-sodium diet (1500 mL fluid restriction) Trial of Lasix 20 mg IV x 1 and will reassess Continue spironolactone (3) Acute exacerbation of chronic obstructive pulmonary disease: Plan: Patient is normally on Roflumilast; hold for now Continue home inhalers Solu-Medrol 30 mg IV BID DuoNeb 3 mL Q6R scheduled Guaifenesin 1200 mg p.o. BID Rocephin 2000 mg IV x 1 in the ED Will defer further antibiotics until chest CTA comes back (patient just recently completed course of Augmentin) (4) Hypertension: Plan: Continue metoprolol Hold p.m. losartan given new addition of Lasix (5) Cardiac defibrillator in place: (6) Hx of cardiomyopathy: Plan Disposition: Admit to PCU telemetry Full code Heart healthy, low-sodium diet (1500 mL fluid restriction) VTE PPx: Chest CTA pending IV heparin if (+), Lovenox 40 mg SQ q24h if (-) History of Present Illness Chief Complaint: SOB/dyspnea Primary Care Provider: [facility] Sonu is a 69-year-old male with PMH of COPD, cardiomyopathy, acute hypoxic respiratory failure, severe sepsis, and gastric intestinal metaplasia. He presented via EMS on 08/07 for worsening SOB. EMS reported patient was SpO2 70% on RA, and was placed on BiPAP prior to arrival. Patient was then taken off BiPAP in the ED and titrated to nasal cannula. Patient reports he has had intermittent SOB since July 20. He originally came to the ER on July 20 due to a fracture in his back, that he developed after pushing a piano on wheels. At that time, he reports that it hurt to breathe in his back; however, shortly after this time he developed worsening SOB both at rest and with exertion. While he does have a history of COPD and normally has ROSADO, the SOB at rest was new for him. He also SOB is worse when he lies flat on his back. Additionally, he was placed on an antibiotic outpatient with his PCP on August 02; Augmentin x 5 days. He thinks this may have been secondary to pneumonia. Today, he went to his friend's house for Thanksgiving dinner, and reports that he had trouble breathing. He reports that it did not come on all of a sudden, however he did have a "attack" yesterday with where he had hot flashes and trouble breathing. He reports that he ran out of albuterol recently, and believes that it could have been secondary to that. While at his friend's house, he borrowed his friend's albuterol today, but this did not help. Additionally, he has had a productive cough over the past several weeks (creamy white, sticky). He denies pleuritic chest pain or hemoptysis. No PMH of DVT/PE to his knowledge. No family history of blood clots. He is not on supplemental oxygen at baseline or CPAP at night. No sick contacts. Patient is a former tobacco cigarette smoker but quit 8 years ago after a case of pneumonia. He denies any chewing tobacco or recent alcohol use. He does endorse a history of panic attacks, and reports that his "attack" yesterday did feel similar to this. No recent falls or injuries to the head/neck/chest wall. Patient took his regular morning medicines today; only recent changes were that he was started on oxycodone for his back injury, and the recent antibiotic. Patient takes spironolactone for his history of heart failure. Despite this, he has had leg swelling since 08/04. He does not believe he has been on Lasix in the past. He does not watch his salt intake, but reports that he does not eat much food, and has actually been losing weight recently. He is unsure if there is been any redness in his legs. No recent injuries to the legs. He reports he is still producing urine. Patient is tachycardic at 110 bpm at time of admission; SpO2 99% on 2L NC. ED course: Rocephin 2000 mg IV Solu-Medrol 125 mg IV DuoNeb 12 mL ROS: Patient endorses breathing attacks which lead to "hot sweats", chest discomfort, SOB at rest and with exertion, orthopnea, productive cough (cream colored), mid dle back pain, loose stool, and swelling in legs. Patient denies fever, chills, night-sweats, dizziness, lightheadedness, VILLEGAS, syncope, falls, chest pain, chest palpitations, pleuritic CP, hemoptysis, abdominal pain, N/V, burning with urination, blood in the urine/stool, Allergies Allergy/AdvReac Type Severity Reaction Status Date / Time fire ant Allergy Intermediate Swelling Verified 04/20/24 13:26 of Lip/Tongue/Throat lisinopril AdvReac Intermediate Cough Verified 04/20/24 13:26 Home Medications Medication Instructions Recorded Confirmed Type losartan 25 mg tablet 12.5 mg PO QPM 11/11/19 08/07/24 History albuterol sulfate 2.5 mg/3 mL 2.5 mg inhalation QID PRN 10/26/21 08/07/24 History (0.083 %) solution for nebulization Shortness Of Breath albuterol sulfate 90 mcg/actuation 2 puff inhalation Q6H PRN 10/26/21 08/07/24 History aerosol inhaler Shortness Of Breath cholecalciferol (vitamin D3) 25 25 mcg PO QAM 06/03/22 08/07/24 History mcg (1,000 unit) capsule budesonide 160 mcg-glycopyr 9 2 inh inhalation BID 02/04/23 08/07/24 History mcg-formot 4.8 mcg/actuation HFA inhaler (Signaturitztri Baboophere) spironolactone 25 mg tablet 25 mg PO QAM 02/11/23 08/07/24 History metoprolol succinate 50 mg 50 mg PO QAM 04/13/24 08/07/24 History tablet,extended release 24 hr roflumilast 500 mcg tablet 500 mcg PO .Q OTHER DAY 04/13/24 08/07/24 History (Daliresp) oxycodone 5 mg tablet 5 mg PO Q4H PRN pain #15 tabs 07/20/24 08/07/24 Rx amoxicillin 875 mg-potassium 1 tab PO BID 08/07/24 08/07/24 History clavulanate 125 mg tablet Past Med/Surg History Problem List (Updated 08/07/24 @ 20:20 by Background Conrad) Hypertension Acute on chronic heart failure Acute respiratory distress (Acute) Acute bronchitis (Acute) Acute exacerbation of chronic obstructive pulmonary disease (Acute) Gastric intestinal metaplasia Pneumonia (Acute) GERD (gastroesophageal reflux disease) Dysphagia reason for upcoming EGD CAP (community acquired pneumonia) GERD (gastroesophageal reflux disease) Encounter for pre-operative examination Dehydration (Acute) Hx of cardiomyopathy (Acute) Hx of cardiomyopathy (Acute) Hx of cardiomyopathy (Acute) Hypotension (Acute) Pneumonia (Acute) resolved Severe sepsis (Acute 01/13/14) when had pneumonia > resolved Syncope (Acute) Back pain due to injury Elevated troponin I level Leukocytosis Tachypnea Acute exacerbation of chronic obstructive pulmonary disease (Acute) Hypoxia (Acute) Lumbar contusion (Acute) Fall (Acute) Acute respiratory failure with hypoxia Abdominal pain Elevated bilirubin Dysphagia COPD (chronic obstructive pulmonary disease) (Acute) controlled with regular inhalers, rare res inh use Cardiomyopathy (Chronic) Cardiac defibrillator in place (Chronic) placed in 2013 > [employer] > last checked approx 2 mos ago > follows with [facility] at [facility] [place] > placed for cardiomyopathy per pt and irregular heart beats Medical History Hypertension T8 vertebral fracture healed on own > does get pain to area occasionally Kidney stones passed on own Low blood pressure happens on occasion History of COVID-19 Apr 22, 2022 > tested at [facility] in [place] > sore throat, chills, loss of taste and smell, no appetite > taste is just now coming back Emphysema of lung Surgical History History of cardiac cath 2003 > no stents Hx of vasectomy Hx of inguinal hernia repair History of tooth extraction Family History Other Family history non-contributory Social History Smoking Status: Former smoker Tobacco Type: Cigarettes packs per day: 2; Cigarettes Per Day: 20; Second Hand Exposure: Yes; Do You Dip or Chew Tobacco: No; Hx Alcohol Use: No Hx Substance Use: No Preferred Language: Urdu Communication Ability: Effective Production Grip Required: No Beliefs That Will Affect Care: None marital status: Current Living Situation: Family Current Living Situation Comment: Cousin lives with him current occupational status: retired Other Information That Helps Us Care for You: No Feels Safe at Home: Yes Safety Concerns: Feels Safe At This Time Assistive Devices: Denture - Upper, Denture - Lower and Glasses Assistive Devices Comment: borrowed a cane from a friend today at bedside Review of Systems Review of Systems: See HPI above Physical Exam Physical Exam: General: Mild respiratory distress; pleasant affect; anxious; non-toxic appearing; cooperative; SpO2 98% on 2L NC HEENT: normocephalic, atraumatic; no scleral icterus; PERRLA; vision and hearing grossly intact Neck: supple; no lymphadenopathy; trachea midline Skin: warm, dry without signs of tenting; no cyanosis; skin peeling/scaling on the lower extremities bilaterally; no rashes, bruising, lesions, or erythema noted CV: chest wall NTP; RR, tachycardic around 113 BPM; S1/S2 normal; no murmurs/rubs/gallops; pulses intact and symmetric at radial, DP, and PT Lungs: Mild respiratory distress; patient is not conversationally dyspneic; barrel-chested; symmetrical chest wall expansion; diminished breath sounds across the lung rao; no wheezing ABD: Soft, NTP; BS present; no rebound/guarding; no distention MSK: no tics or fasciculations; +2 pitting edema in the lower extremities bilaterally (worse around the ankles), nonerythematous Neuro: A&Ox3; normal mood and affect; fluent speech; no focal deficits; he report sensation intact and symmetric in the lower extremity bilaterally Results & Data Results & Data Vital Signs (Past 12 Hours) Vital Signs Temp Pulse Pulse Resp BP Pulse Ox O2 Del Method 08/07/24 16:30 110 H 22 99 Nasal Cannula 08/07/24 16:05 111 H 08/07/24 15:27 107 H 18 100 Nasal Cannula 08/07/24 15:04 100 Nasal Cannula 08/07/24 14:44 91 H 16 100 08/07/24 14:36 100 BiPAP 08/07/24 14:36 BiPAP 08/07/24 14:15 36.6 C 97 H 23 104/78 100 BiPAP O2 Flow Rate FiO2 08/07/24 16:30 2 08/07/24 16:05 08/07/24 15:27 4 08/07/24 15:04 4 08/07/24 14:44 30 08/07/24 14:36 08/07/24 14:36 08/07/24 14:15 Laboratory Results Abnormal lab results 08/07/24 08/07/24 Range/Units 14:40 15:29 RDW Std Deviation 46.5 H (36.4-46.3) fL Plt Count 435 H (130-400) K/uL Neut # (Auto) 7.65 H (1.40-6.50) K/uL Lymph # (Auto) 0.60 L (1.20-3.40) K/uL [place] # (Auto) 0.65 H (0.11-0.59) K/uL VBG pH 7.30 L (7.36-7.41) VBG pCO2 61 H (38-50) mmHg Total Bilirubin 1.3 H (0.2-1.0) mg/dl B-Natriuretic Peptide 536 H (0-100) pg/ml Globulin 2.4 L (2.5-4.0) gm/dl Diagnostic Findings Chest X-Ray 08/07/24 14:51 EXAM: Radiograph of the Chest 1 View INDICATION: Dyspnea. TECHNIQUE: Frontal view of the chest. COMPARISON: 07/20/2024 FINDINGS: Limitations: The left upper lung is partially obscured by the pacing device. Lungs and pleural spaces: Stable emphysematous changes. Stable mild vascular crowding and minimal airway thickening in the lower lung zones. No consolidation or pulmonary edema. No pleural effusion or pneumothorax. Heart: Shape and configuration within normal limits allowing for technique. Mediastinum: Normal contour. Bones/joints: No fracture, erosion or dislocation. Soft tissues: No abnormality noted. No radiopaque foreign body noted. Tubes, lines and devices: Stable cardiac defibrillator lead in the right ventricle. Upper abdomen: No abnormality noted. IMPRESSION: Emphysema with stable mild acute and/or chronic bronchitis. No pneumonia. ACT 112: Negative or not required by law. Electronically signed by Nydia Moon 08-07-2024 3:35 PM ECG Additional Comments: ECG revealed sinus tachycardia with occasional PVCs at 103 bpm; QTc 479 Code Status & VTE Plan Code Status Full code Regarding medical proxy in an emergency situation, patient reports he would want one of his friends to make the decision: Estefany Quezada (Friend) Her 's cell phone number #[phone] VTE Prophylaxis Plan VTE Prophylaxis will be ordered: Yes Supervising Physician Co-Signing Physician Notes Attending Attestation & Admission Note: Pt seen/examined, chart reviewed, admission care plan d/w PA Willy Dawn. I agree w/ the rogers components of his H & P documentation with the following addition/change -- acute hypoxic resp failure should be -- acute hypoxic/hypercapnic respiratory failure as CO2 was elevated & he was acidotic 69yo male with known severe COPD, chronic systolic CHF with known cardiom yopathy, ICD, recent T5 compression fracture earlier this month. Presented with severe dyspnea, hypoxia, ongoing mid-back pain. Upon arrival was severely hypoxic and blood gas showed acute resp acidosis with elevated pCO2. Required BIPAP, hour-long duoneb, and IV steroid load (125mg of solumedrol). By the time of my assessment his breathing was much improved, BIPAP had been weaned off, and he was now stable on NC O2. "Feels much better" he told me. Does endorse recent swelling in legs. [facility] [place]. ICD interrogated about 1 week ago (does it remotely from home). PMH/PSH/allergies/meds/sochx/famhx - reviewed vitals reviewed exam: gen - very thin, NAD, pleasant neck - mild JVD mouth - MM dry, thrush present on buccal mucosa heart - tachy, s1 s2, no obvious murmur lungs - airation fair at best, scattered wheezes, decreased BS bases, rales bases abd - soft NT ND BS+ ext - severe dermatitis of shins & feet; <1+ edema b/l; pulses 1+ b/l feet psych - a/o x 3 labs reviewed imaging reviewed this admission and in early July EKG - sinus tach, PVCs, IRBBB, inferior ST changes A/P: 1. acute hypoxic & hypercapnic resp failure 2. thrush 3. severe dermatitis b/l legs/feet 4. probable acute/chronic systolic CHF 5. COPD exacerbation 6. recent T5 compression fracture 7. ICD status diurese with lasix steroids IV nystatin for thrush lac-hydrin BID for legs/feet ICD interrogation to be requested cont BB, aldactone, etc for CHF PT baldomero Duke MD PG Care Time/CCT Total # of Minutes Spent Total Time Spent with Patient: Total time spent is greater than 50% in coordination of care (as documented) at patient's floor/unit and/or counseling patient: [place] [address] INT INP/OBS CARE 3/75MIN Patient Type Established Medical Decision Making High Complexity Diagnoses Acute respiratory failure with hypoxia J96.01 Acute on chronic heart failure I50.9 Acute exacerbation of chronic obstructive pulmonary disease J44.1 Hypertension I10 Cardiac defibrillator in place Z95.810 Hx of cardiomyopathy Z86.79
[2024-08-07] MEDS: cefTRIAXone SODIUM 2,000 MG/50 ML BAG IV STA (16:48)
[2024-08-07] MEDS: OPTIRAY 320 125ml IV ONE (18:38)
[2024-08-07] MEDS: FUROSEMIDE INJ 20 MG/2 ML VIAL IV ONE (18:41)
--- NOTE | 2024-08-07 19:08 | CT Scan Report ---
EXAM: CT Angiography Chest With Intravenous Contrast INDICATION: Dyspnea. TECHNIQUE: Axial computed tomographic angiography images of the chest with intravenous contrast. Sagittal and coronal reformatted images were created and reviewed. This CT exam was performed using one or more of the following dose reduction techniques: automated exposure control, adjustment of the mA and/or kV according to patient size, and/or use of iterative reconstruction technique. MIP reconstructed images were created and reviewed. CONTRAST: 119ml of Optiray 320 was administered intravenously. COMPARISON: 07/20/2024 FINDINGS: Limitations: Respiratory motion limits assessment of small odor lower lobe pulmonary arterial branches. Pulmonary arteries: No pulmonary embolus identified. Aorta: No acute change noted. No thoracic aortic aneurysm or dissection. Lungs and pleural spaces: Stable severe bullous emphysema. No interval change and numerous subcentimeter calcified and noncalcified nodules scattered in the right upper lobe. Stable 3 mm fissural nodule right major fissure. No bronchiectasis, honeycombing or reticulation. Stable coarse scarring in the right lower lobe. No pleural effusion or pneumothorax. Heart: Cardiomegaly noted. Cardiac pacing device noted. Metallic artifact limits assessment of lead integrity. No significant pericardial effusion. No evidence of RV dysfunction. Thyroid: 1 cm left thyroid nodule present. No further assessment required. Bones/joints: The bones are demineralized. Acute to subacute T5 compression fracture has occurred since the prior study with diffuse approximate 40% height loss. No retropulsion. Soft tissues: No abnormality noted. Lymph nodes: No abnormality noted. No enlarged lymph nodes. IMPRESSION: 1. No pulmonary embolus identified. 2. There is an acute to subacute T5 compression fracture new since 07/20/2024 with roughly 40% height loss. No retropulsion. ACT 112: Negative or not required by law. Electronically signed by Nydia Moon 08-07-2024 7:08 PM
--- NOTE | 2024-08-07 19:39 | Electrocardiogram Report ---
Test Reason : Blood Pressure : */* mmHG Vent. Rate : 103 BPM Atrial Rate : 103 BPM P-R Int : 154 ms QRS Dur : 114 ms QT Int : 366 ms P-R-T Axes : 82 91 234 degrees QTcB Int : 479 ms Sinus tachycardia with occasional Premature ventricular complexes Rightward axis Incomplete right bundle branch block Abnormal ECG When compared with ECG of 13-Jan-2023 15:08, ST now depressed in Inferior leads ST now depressed in Anterior leads T wave inversion now evident in Inferior leads T wave inversion now evident in Anterolateral leads Confirmed by Juan A Murray ([id number]) on 08/07/2024 7:39:40 PM Referred By: Confirmed By: Juan A Murray
[2024-08-07] MEDS ORDERED: ONDANSETRON INJ 2 MG/ML 2 ML VIAL IV PRN (20:20)
[2024-08-07 20:27] LABS: Appearance Urine Clear (Clear); Bilirubin Urine Negative (Negative); Blood Urine Negative (Negative); Color Urine Yellow; Glucose Urine UA Negative (Negative); Ketones Urine Negative (Negative); Leukocyte Esterase Urine Negative (Negative); Nitrite Urine Negative (Negative); Protein Urine Negative (Negative); Specific Gravity Urine 1.022 (1.000-1.030); Urobilinogen Urine Negative (Negative); pH Urine 5.5 (4.5-7.5)
[2024-08-07] MEDS: NYSTATIN SUSP 500,000 U/5 ML UDC PO SCH (21:32)
[2024-08-07] MEDS: guaiFENesin 600 MG TABCR PO SCH (21:32)
[2024-08-07] MEDS: ALBUT/IPRATROP 3MG/0.5MG NEB 3 ML VIAL INH SCH (21:33)
[2024-08-07] MEDS: ENOXAPARIN INJ 40 MG/0.4 ML SYR SQ SCH (21:33)
[2024-08-08 05:56] LABS: Base Excess VBG 5.3 mEq/L; HCO3 VBG 31 mmol/L; PCO2 VBG 49 mmHg (38-50); PO2 VBG 33 mmHg; pH VBG 7.41 (7.36-7.41)
[2024-08-08 06:05] LABS: Hematocrit (blood only) 39.3 % (42.0-52.0); Hemoglobin 13.1 g/dl (14.0-18.0); Mean Corpuscular Hgb Conc 33.3 g/dL (32.0-36.0); Mean Corpuscular Volume 90.1 fL (80.0-100.0); Mean Platelet Volume 9.2 fL (9.4-12.4); Platelet Count 379 K/uL (130-400); RDW Coefficient of Variation 13.9 % (11.5-14.5); RDW Standard Deviation 46.3 fL (36.4-46.3); Red Blood Count 4.36 M/uL (4.70-6.10); White Blood Count 8.79 K/ul (4.8-10.8)
[2024-08-08 06:15] LABS: BUN Creatinine Ratio 16.9 (10-20); Calcium 9.1 mg/dl (8.6-10.3); Potassium 4.2 mmol/L (3.5-5.1)
[2024-08-08 06:31] LABS: Basophils # (auto) 0.01 K/uL (0.00-0.20); Basophils % (auto) 0.1 %; Immature Granulocytes # (auto) 0.12 K/uL (0.01-0.20); Immature Granulocytes % (auto) 1.4 %; Lymphocytes # (auto) 0.43 K/uL (1.20-3.40); Lymphocytes % (auto) 4.9 %; Monocytes # (auto) 0.26 K/uL (0.11-0.59); Neutrophils # (auto) 7.97 K/uL (1.40-6.50); Neutrophils % (auto) 90.6 %
[2024-08-08] MEDS: methylPREDNISolone 30 MG in SYRINGE 0 ML IV SCH (08:21)
[2024-08-08] MEDS: FLUTICASONE FUROATE 200MCG 14 PUFFS/INHALER INH SCH (08:22)
[2024-08-08] MEDS: SPIRONOLACTONE 25 MG TAB PO SCH (08:22)
[2024-08-08] MEDS: METOPROLOL SUCC 50MG EXT REL TAB PO SCH (08:22)
[2024-08-08] MEDS: UMECLIDINIUM/VILANTEROL 62.5/25MCG 7 PUFFS/INHALER INH SCH (08:23)
[2024-08-08] MEDS ORDERED: methylPREDNISolone 125 MG/2 ML VIAL IV SCH (09:00)
[2024-08-08] MEDS: FUROSEMIDE INJ 20 MG/2 ML VIAL IV ONE (09:28)
[2024-08-08] MEDS: AMMONIUM LACTATE 12% LOTION 225 GM BTL EXT SCH (09:28)
--- NOTE | 2024-08-08 10:39 | XCELERA ---
[id number] \\[id number]
[2024-08-08] MEDS: MAGNESIUM SULFATE / D5W 1 GM/100 ML BAG IV ONE (16:42)
[2024-08-08] MEDS: POTASSIUM CHLORIDE CRTAB 20 MEQ TABCR PO STA (16:42)
[2024-08-08] MEDS: ACETAMINOPHEN 325 MG TAB PO PRN (17:20)
[2024-08-08] MEDS: LIDOCAINE 5% 1 PATCH TD SCH (18:06)
--- NOTE | 2024-08-08 20:25 | Hospitalist Progress Note ---
Date of Service August 08, 2024 Assessment & Plan (1) Acute respiratory failure with hypoxia and hypercapnia: Plan: 2nd to COPD exacerbation 2nd to acute/chronic systolic CHF MUCH improved o2 essentially weaned off at this point Rx individual issues as below (2) Acute on chronic systolic heart failure: Plan: improved s/p lasix yesterday give another dose of lasix today BMP am cont BB resume ARB ultimately ideally he should be on Entresto if BP will allow cont aldactone consider Jardiance (3) Acute exacerbation of chronic obstructive pulmonary disease: Plan: Improving Cont Solu-Medrol 30 mg IV BID; can likely transition to PO prednisone tomorrow Cont nebs & inhalers Cont mucinex BID Received IV rocephin in ER, and was on augmentin as outpatient recently for RLL pneumonia CTA chest w/o PEs or pneumonia Defer on abx for now (4) Hypertension: Plan: Continue metoprolol succ daily Typically on losartan which is on hold Continue aldactone Lasix IV today (5) Cardiac defibrillator in place: Plan: due to known cardiomyopathy with EF <30% interrogation pending (6) Compression fracture of T5 vertebra: Plan: check 25 OH Vit D level am lidoderm patches daily tylenol prn add pain meds if needed should get DEXA as outpatient (7) Dermatitis of both feet: Plan: lac-hydrin BID (8) Candidiasis of mouth and esophagus: Plan: nystatin tamy - 5ml QID (9) NSVT (nonsustained ventricular tachycardia): Plan: no Rx needed continue metoprolol keep K/mag wnl NSVT to be expected in the setting of severe LV dysfunction has ICD in place; no recent discharges interrogation pending Plan DVT proph - lovenox daily request PT eval to ensure safe for home when medically ready Admission and Anticipated Discharge Date Admission Date: August 07, 2024 Subjective patient reports continuing to feel better dyspnea significantly improved cough remains but mild eating no chest pain or tightness tele - sinus tach; 1 episode today of NSVT (no symptoms during such) asks when he can go home during the visit I removed his NC O2 and he stayed in the low 90s on room air he asks if he will need O2 for home - told him we will do a 2-step at discharge Review of Systems Review of Systems: gen - no fevers or chills cv - no chest pain; no orthopnea; edema improved pulm - no dyspnea at rest GI - no abd pain or N/V Physical Exam Physical Exam: gen - thin, NAD, no respiratory distress, pleasant mouth - MMM, thrush plaques still present neck - JVD resolved today heart - tachy, s1 s2, no murmur lungs - decreased BS, no wheezing, airation fair, no increased work of breathing, occasional rales bases abd - soft NT ND BS+ ext - trace edema legs, pulses 1-2+ b/l feet skin - severe dermatitis of legs/feet improved psych - a/o x 3 Results & Data Results & Data Vital Signs (Past 12 Hours) Vital Signs Temp Pulse Pulse Resp BP Pulse Ox O2 Del Method 08/08/24 20:05 36.9 C 107 H 19 123/84 96 Room Air 08/08/24 19:17 91 H 18 94 Nasal Cannula 08/08/24 15:23 36.9 C 105 H 20 104/75 95 Nasal Cannula 08/08/24 14:27 105 H 08/08/24 13:04 102 H 20 94 Nasal Cannula 08/08/24 11:05 36.8 C 97 H 20 108/72 96 Nasal Cannula O2 Flow Rate 08/08/24 20:05 08/08/24 19:17 1 08/08/24 15:23 1 08/08/24 14:27 08/08/24 13:04 1 08/08/24 11:05 1 Laboratory Results Laboratory Results - last 24 hr 08/08/24 05:47 WBC 8.79 RBC 4.36 L Hgb 13.1 L Hct 39.3 L MCV 90.1 MCH 30.0 MCHC 33.3 RDW Std Deviation 46.3 RDW Coeff of Renee 13.9 Plt Count 379 MPV 9.2 L Immature Gran % (Auto) 1.4 Neut % (Auto) 90.6 Lymph % (Auto) 4.9 [place] % (Auto) 3.0 Eos % (Auto) 0.0 Baso % (Auto) 0.1 Neut # (Auto) 7.97 H Lymph # (Auto) 0.43 L [place] # (Auto) 0.26 Eos # (Auto) 0.00 Baso # (Auto) 0.01 Immature Gran # (Auto) 0.12 VBG pH 7.41 VBG pCO2 49 VBG pO2 33 VBG HCO3 31 VBG O2 Saturation 61.0 VBG Base Excess 5.3 Sodium 139 Potassium 4.2 Chloride 104 Carbon Dioxide 30 Anion Gap 5 BUN 14 Creatinine 0.83 Est Cr Clr Drug Dosing 71.0 eGFR 94.15 BUN/Creatinine Ratio 16.9 Glucose 142 H Calcium 9.1 Hepatitis C Ab Screen Pending Diagnostic Findings echo - EF 25-30% mild pulm HTN global hypokinesis of LV PG Care Time/CCT Total # of Minutes Spent Total Time Spent with Patient: Total time spent is greater than 50% in coordination of care (as documented) at patient's floor/unit and/or counseling patient: Coding Level of Care Code 97917 SUB INP/OBS CARE 3/50MIN Diagnoses Acute respiratory failure with hypoxia and hypercapnia J96.01; J96.02 Acute on chronic systolic heart failure I50.23 Acute exacerbation of chronic obstructive pulmonary disease J44.1 Hypertension I10 Cardiac defibrillator in place Z95.810 Compression fracture of T5 vertebra S22.050A Encounter type: initial encounter Dermatitis of both feet L30.9 Candidiasis of mouth and esophagus B37.81; B37.0 NSVT (nonsustained ventricular tachycardia) I47.29 (6) Compression fracture of T5 vertebra Encounter type: initial encounter Qualified Code(s): S22.050A - Wedge compression fracture of T5-T6 vertebra, initial encounter for closed fracture
[2024-08-09] MEDS: MELATONIN 3 MG TAB PO PRN (00:28)
[2024-08-09 07:40] LABS: Calcium 9.2 mg/dl (8.6-10.3); Creatinine Clr Calc Pharmacy 77.5 ml/min; Magnesium 1.9 mg/dl (1.7-2.4); Potassium 4.6 mmol/L (3.5-5.1)
[2024-08-09 08:12] LABS: Estimated Average Glucose 105 mg/dl; Hemoglobin A1C 5.3 % (4.5-5.6)
[2024-08-09] MEDS: FUROSEMIDE 20 MG TAB PO ONE (16:25)
[2024-08-09] MEDS: ALBUT/IPRATROP 3MG/0.5MG NEB 3 ML VIAL INH SCH (19:21)
--- NOTE | 2024-08-09 19:23 | Hospitalist Progress Note ---
Date of Service August 09, 2024 Assessment & Plan (1) Acute respiratory failure with hypoxia and hypercapnia: Plan: 2nd to COPD exacerbation 2nd to acute/chronic systolic CHF MUCH improved o2 weaned off at rest but staff have noted he desats with activity Rx individual issues as below plan for 2-step ambulatory O2 test on day of discharge (2) Acute on chronic systolic heart failure: Plan: improved approaching euvolemia will give lasix today but give 20mg po x 1 (previously received 2 doses of IV lasix) BMP am cont BB resume ARB ultimately ideally he should be on Entresto if BP will allow cont aldactone consider Jardiance did talk to him about having furosemide on hand at home - at least to use on prn basis for weight gains (3) Acute exacerbation of chronic obstructive pulmonary disease: Plan: Improving/resolving Cont Solu-Medrol 30 mg IV BID today; transition to PO prednisone 40mg daily starting tomorrow AM Cont nebs & inhalers Cont mucinex BID Received IV rocephin in ER, and was on augmentin as outpatient recently for RLL pneumonia CTA chest w/o PEs or pneumonia Defer on abx for now plan 5-7 days of PO prednisone taper (4) Hypertension: Plan: Continue metoprolol succ daily Typically on losartan which is on hold Continue aldactone Lasix 20mg po x 1 (5) Cardiac defibrillator in place: Plan: due to known cardiomyopathy with EF <30% interrogation -- since 02/20/24 - * 168 NSVT episodes * NO shocks delivered * only 1 shock given since implantation in 2011 * 1 year of battery life left (6) Compression fracture of T5 vertebra: Plan: 25 OH Vit D level wnl today lidoderm patches daily tylenol prn add pain meds if needed should get DEXA as outpatient (7) Dermatitis of both feet: Plan: lac-hydrin BID MUCH improved send home with lac-hydrin (8) Candidiasis of mouth and esophagus: Plan: nystatin tamy - 5ml QID improving (9) NSVT (nonsustained ventricular tachycardia): Plan: no Rx needed continue metoprolol keep K/mag wnl NSVT to be expected in the setting of severe LV dysfunction has ICD in place; no recent discharges interrogation as noted above - * 168 NSVT episodes since 02/20/24 * no shocks during this time period had 2 episodes of NSVT in the last 24 hours no symptoms (10) Mood disorder: Plan: insomnia, mild depression, thin body habitus -- start remeron 7.5mg HS Plan DVT proph - lovenox daily passed PT eval; can return home set up with home health and home PT/ OT Admission and Anticipated Discharge Date Admission Date: August 07, 2024 Subjective patient reports that his breathing is back to baseline mild cough, productive of mucous no dyspnea at rest reports that his mouth (thrush) is improving reports his dermatitis on both legs/feet has improved he states that since the summer he has been depressed he has had insomnia for about 2 months appetite is fair he is open to the idea of an anti-depressant asks when he can return home a close friend was present during the visit and asked if he is eligible for home health services Review of Systems Review of Systems: gen - no fevers cv - no chest pain, no edema pulm - cough/congestion/ROSADO GI - no abd pain, no N/V; moving his bowels Physical Exam Physical Exam: gen - thin, NAD, pleasant, looks good today mouth - MMM, thrush plaques nearly resolved neck - JVD about resolved heart - mildly tachy, s1 s2, no murmur lungs - decreased BS, no wheezing, airation fair, no increased work of breat goldie, no rales abd - soft NT ND BS+ ext - no edema legs, pulses 1-2+ b/l feet skin - severe dermatitis of legs/feet MUCH improved psych - a/o x 3 Results & Data Results & Data Vital Signs (Past 12 Hours) Vital Signs Temp Pulse Pulse Resp BP Pulse Ox O2 Del Method 08/09/24 17:00 101 H 08/09/24 15:12 36.8 C 92 H 21 111/86 96 Nasal Cannula 08/09/24 11:50 36.6 C 100 H 19 110/68 96 Nasal Cannula 08/09/24 10:36 95 H 08/09/24 10:28 Nasal Cannula 08/09/24 08:00 36.6 C 111 H 19 116/77 95 Nasal Cannula O2 Flow Rate 08/09/24 17:00 08/09/24 15:12 2 08/09/24 11:50 2.0 08/09/24 10:36 08/09/24 10:28 1 08/09/24 08:00 1.0 Laboratory Results Laboratory Results - last 24 hr 11/24/24 11/25/24 05:47 06:34 Sodium 138 Potassium 4.6 Chloride 102 Carbon Dioxide 31 Anion Gap 5 BUN 19 Creatinine 0.76 Est Cr Clr Drug Dosing 77.5 eGFR 96.69 BUN/Creatinine Ratio 25.0 H Glucose 129 H Estimat Average Glucose 105 Hemoglobin A1c 5.3 Calcium 9.2 Magnesium 1.9 25-OH Vitamin D Total 58.3 Hepatitis C Ab Screen Negative PG Care Time/CCT Total # of Minutes Spent Total Time Spent with Patient: Total time spent is greater than 50% in coordination of care (as documented) at patient's floor/unit and/or counseling patient: Coding Level of Care Code 18868 SUB INP/OBS CARE 2/35MIN Diagnoses Acute respiratory failure with hypoxia and hypercapnia J96.01; J96.02 Acute on chronic systolic heart failure I50.23 Acute exacerbation of chronic obstructive pulmonary disease J44.1 Hypertension I10 Cardiac defibrillator in place Z95.810 Compression fracture of T5 vertebra S22.050A Encounter type: initial encounter Dermatitis of both feet L30.9 Candidiasis of mouth and esophagus B37.81; B37.0 NSVT (nonsustained ventricular tachycardia) I47.29 Mood disorder F39 (6) Compression fracture of T5 vertebra Encounter type: initial encounter Qualified Code(s): S22.050A - Wedge compression fracture of T5-T6 vertebra, initial encounter for closed fracture
[2024-08-09] MEDS: MIRTAZAPINE TAB 15 MG TAB PO SCH (20:27)
[2024-08-10 07:03] LABS: BUN Creatinine Ratio 30.3 (10-20); Calcium 8.7 mg/dl (8.6-10.3); Potassium 4.4 mmol/L (3.5-5.1)
[2024-08-10] MEDS: predniSONE 20 MG TAB PO SCH (08:19)
[2024-08-10 10:51] LABS: Magnesium 1.8 mg/dl (1.7-2.4)
[2024-08-10 11:18] VITALS: BP 103/70; PULSE 88; RESP 20; TEMP 98.8; O2SAT 91
--- NOTE | 2024-08-10 18:09 | Discharge Summary ---
Discharge Summary Date of Service August 10, 2024 Principal Dx & Hospital Course #1 = Principal Diagnosis (1) Acute respiratory failure with hypoxia and hypercapnia: 69-year-old man with history of COPD and HFrEF admitted with acute respiratory failure secondary to acute on chronic HFrEF and acute exacerbation of COPD treated with IV diuretics, bronchodilators and steroids. Resolved. We tested resting and ambulatory O2 sats today and he did not meet criteria for home oxygen. He feels much better his breathing feels like it is his baseline. (2) Acute on chronic systolic heart failure: diuresed with IV Lasix, improved continue metoprolol, losartan, spironolactone added as needed Lasix for home use ideally he should be on Entresto if BP will allow, consider Jardiance - both these are deferred to the outpatient setting since he follows with [place] [facility] and I will not be able to obtain prior authorizations (3) Acute exacerbation of chronic obstructive pulmonary disease: he says this was precipitated because he had run out of his control inhaler and the refill was very slow to arrive, though it has now arrived at his house Received IV rocephin in ER, and was on augmentin as outpatient recently for RLL pneumonia CTA chest w/o PEs or pneumonia treated with bronchodilators and steroids, discharged with 5 days additional prednisone p.o. (4) Hypertension: continue metoprolol losartan and Aldactone (5) Cardiac defibrillator in place: due to known cardiomyopathy with EF <30% interrogation -- since 02/20/24 - * 168 NSVT episodes * NO shocks delivered * only 1 shock given since implantation in 2011 * 1 year of battery life left he had intermittent runs of NSVT this admission, 1 this morning was symptomatic of brief lightheadedness. 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 consider Entresto or SGLT2 for heart failure added low-dose mirtazapine Admission HPI Per Admitting Provider Sonu is a 69-year-old male with PMH of COPD, cardiomyopathy, acute hypoxic respiratory failure, severe sepsis, and gastric intestinal metaplasia. He presented via EMS on 08/07 for worsening SOB. EMS reported patient was SpO2 70% on RA, and was placed on BiPAP prior to arrival. Patient was then taken off BiPAP in the ED and titrated to nasal cannula. Patient reports he has had intermittent SOB since July 20. He originally came to the ER on July 20 due to a fracture in his back, that he developed after pushing a piano on wheels. At that time, he reports that it hurt to breathe in his back; however, shortly after this time he developed worsening SOB both at rest and with exertion. While he does have a history of COPD and normally has ROSADO, the SOB at rest was new for him. He also SOB is worse when he lies flat on his back. Additionally, he was placed on an antibiotic outpatient with his PCP on August 02; Augmentin x 5 days. He thinks this may have been secondary to pneumonia. Today, he went to his friend's house for Thanksgiving dinner, and reports that he had trouble breathing. He reports that it did not come on all of a sudden, however he did have a "attack" yesterday with where he had hot flashes and trouble breathing. He reports that he ran out of albuterol recently, and believes that it could have been secondary to that. While at his friend's house, he borrowed his friend's albuterol today, but this did not help. Additionally, he has had a productive cough over the past several weeks (creamy white, sticky). He denies pleuritic chest pain or hemoptysis. No PMH of DVT/PE to his knowledge. No family history of blood clots. He is not on supplemental oxygen at baseline or CPAP at night. No sick contacts. Patient is a former tobacco cigarette smoker but quit 8 years ago after a case of pneumonia. He de nies any chewing tobacco or recent alcohol use. He does endorse a history of panic attacks, and reports that his "attack" yesterday did feel similar to this. No recent falls or injuries to the head/neck/chest wall. Patient took his regular morning medicines today; only recent changes were that he was started on oxycodone for his back injury, and the recent antibiotic. Patient takes spironolactone for his history of heart failure. Despite this, he has had leg swelling since 08/04. He does not believe he has been on Lasix in the past. He does not watch his salt intake, but reports that he does not eat much food, and has actually been losing weight recently. He is unsure if there is been any redness in his legs. No recent injuries to the legs. He reports he is still producing urine. Patient is tachycardic at 110 bpm at time of admission; SpO2 99% on 2L NC. ED course: Rocephin 2000 mg IV Solu-Medrol 125 mg IV DuoNeb 12 mL ROS: Patient endorses breathing attacks which lead to "hot sweats", chest discomfort, SOB at rest and with exertion, orthopnea, productive cough (cream colored), middle back pain, loose stool, and swelling in legs. 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 Its resolved with diuretics -you can take extra diuretic (furosemide AKA lasix) as needed. You can take 1 tab daily as needed for increased leg swelling -if you're getting worse despite this, call your doctor, or come back to the ER if you're getting very short of breath We checked your oxygen levels at rest and with walking today and you're ok without oxygen We started mirtazapine at bedtime - this will help with sleep, appetite, and mood Be very careful if you take oxycodone for pain - this can cause respiratory suppression. Talk to your doctor about the dose and whether to continue it. It was a pleasure taking care of you in the hospital, Vilma Bianchi MD Pending Studies at Discharge: No Stand-Alone Forms: My [facility], Smoking Cessation Medications and DC Order Prescriptions: New mirtazapine 15 mg Tablet 7.5 mg PO HS Qty: 30 0RF prednisone 20 mg Tablet 40 mg PO DAILY Qty: 10 0RF melatonin 3 mg Tablet 3 mg PO HS PRN (Reason: sleep) Qty: 0 0RF Rx Instructions: may buy over the counter lidocaine 5 % Adhesive Patch,Medicated 1 - 3 patch transdermal DAILY@1800 PRN (Reason: back pain) Qty: 30 0RF Continued cholecalciferol (vitamin D3) 25 mcg (1,000 unit) capsule 25 mcg PO QAM Breztri Aerosphere 160-9-4.8 mcg/actuation HFA aerosol inhaler 2 inh inhalation BID metoprolol succinate 50 mg tablet extended release 24 hr 50 mg PO QAM roflumilast [Daliresp] 500 mcg tablet 500 mcg PO .Q OTHER DAY spironolactone 25 mg tablet 25 mg PO QAM losartan 25 mg Tablet 12.5 mg PO QPM albuterol sulfate 2.5 mg /3 mL (0.083 %) Solution For Nebulization 2.5 mg INHALATION QID PRN (Reason: Shortness Of Breath) albuterol sulfate 90 mcg/actuation Hfa Aerosol Inhaler 2 puff INHALATION Q6H PRN (Reason: Shortness Of Breath) oxycodone 5 mg tablet 5 mg PO Q4H PRN (Reason: pain) Qty: 15 0RF Discontinued amoxicillin-pot clavulanate 875-125 mg tablet 1 tab PO BID Rx Instructions: has one pill left. Discharge Orders: Discharge Order (Routine); Ordered 08/10/24 Ordered By: Vilma Sen/Other Patient Handouts: COPD: Coping with Mucus, Ventricular Arrhythmia Admission Data Admit Date/Time: 08/07/24 17:54 Attending Provider: Vilma Bianchi Admit Provider: Ryland Duke Primary Care Provider: [facility] Other Providers: Ryland Duke; [facility] Other Interventions: Discharge Summary Assessment (RN) Last Done: 08/10/24 13:57 Hospital Stay Data Consultations 08/07/24 16:33 ED Decision to Admit Stat Diagnostic Imagining Performed 08/07/24 17:47 CT angio chest PE protocol Stat Pending Results Patient Have Any Pending Studies at Discharge: No Discharge Instructions Given to Patient (Per Discharging Provider) You were treated for heart failure exacerbation and COPD exacerbation For COPD use your inhalers as directed Take prednisone for 5 more days to decrease lung inflammation For heart failure - you were volume overloaded when you came in - this caused leg swelling and fluid on your lungs. Its resolved with diuretics -you can take extra diuretic (furosemide AKA lasix) as needed. You can take 1 tab daily as needed for increased leg swelling -if you're getting worse despite this, call your doctor, or come back to the ER if you're getting very short of breath We checked your oxygen levels at rest and with walking today and you're ok without oxygen We started mirtazapine at bedtime - this will help with sleep, appetite, and mood Be very careful if you take oxycodone for pain - this can cause respiratory suppression. Talk to your doctor about the dose and whether to continue it. It was a pleasure taking care of you in the hospital, Vilma Bianchi MD Total Time Total Time Spent Total Time Spent (In Minutes): <30 Coding Level of Care Code 23920 IN/OBS DISCH 30 MIN/LESS Diagnoses Acute respiratory failure with hypoxia and hypercapnia J96.01; J96.02 Acute on chronic systolic heart failure I50.23 Acute exacerbation of chronic obstructive pulmonary disease J44.1 Hypertension I10 Cardiac defibrillator in place Z95.810 Compression fracture of T5 vertebra S22.050A Encounter type: initial encounter Mood disorder F39
== END 2024-08-10 15:15 | disposition home or self-care (01) | DRG 189 ==
LOC: ED 14:28 → EDINP 17:54 → SUATTDRO 17:54 → 2E 20:20

== ENCOUNTER 2024-08-25 14:22 | Inpatient (IN) ==
--- NOTE | 2024-08-25 14:42 | Emergency Department Note ---
Impression & Plan Acute on chronic respiratory failure with hypoxia and hypercapnia, Acute exacerbation of chronic obstructive pulmonary disease, History of congestive heart failure ED Provider Note NAME: GALO WAGONER AGE: 69 SEX: M : 1955 ARRIVES VIA: Ambulance INFORMANT: Patient, EMS report ED PROVIDER(S): Yobany Lopez MD CHIEF COMPLAINT: Shortness of breath MEDICAL DECISION MAKING: Patient presents due to concern for significant shortness of breath. IV was established and blood work was obtained. Respiratory did arrive the patient did have an increase in his PEEP. Patient does have borderline soft pressures and tachycardia. [id number] bedside ultrasound was performed. No obvious pericardial effusion but decreased EF noted. IVC plethoric but not significantly so and no obvious B-lines. Initially Lasix ordered but then removed and waited for the patient's chest x-ray. Patient's chest x-ray is relatively clear with only emphysematous changes no significant pulmonary edema. Patient was ordered small IV fluid bolus. Patient white count of 24 so blood cultures added and patient was treated with Zosyn empirically. Patient's initial ABG with a pH of 7.27 pCO2 of 61 pO2 of 160. Kidney function is unremarkable. Troponin negative. Pro-Nolan negative. BioFire negative. Patient's BNP is elevated 424. MRSA screen negative. Patient was reassessed numerous times throughout his emergency department stay. The patient did have clinical improvement throughout his stay. I did speak the on-call hospitalist service Dr. Wyman and the patient was admitted to medicine service. Critical Care: I have personally spent 77 minutes of critical care time in direct management of this patient. This includes bedside care, interpretation of diagnostic studies, and testing, discussion with consultants, patient, and family members, and other require inpatient management activities. This 77 minutes is in excess of all separately billable procedures. Procedures: Limited Point of Care Cardiac Ultrasound performed by Dr. Lopez Indication: Shortness of breath Findings: Limited echocardiography revealed no pericardial fluid. Wall motion appeared decreased. HR 1 teens. Additional findings: IVC noted to be full, very mild respiratory variability if at all, no obvious B-lines on lung exam Impression: Decreased EF without obvious pulmonary edema noted on ultrasound Discussion w/ other healthcare providers: Dr. Wyman inpatient medicine service Prior /Outside records reviewed: I reviewed part of a discharge summary from August 10 from [facility]. Patient with history of COPD and heart failure with reduced ejection fraction with acute respiratory failure secondary to acute on chronic heart failure and acute exacerbation of COPD. Treated with IV diuretics bronchodilators and steroids. I reviewed part of an echo report noted that the patient's left ventricle is mildly dilated severely reduced left ventricular function with a EF 25 to 30% with severe global hypokinesis. Differential diagnosis: Reactive airway disease, pneumonia, pneumothorax, COPD, CHF, ACS, pulmonary embolism, musculoskeletal, GERD as well as other pathologies were considered. Diagnostics, as interpreted by me: ECG: Sinus tachycardia with occasional PVCs and fusion complexes, rate of 122, wide QRS right bundle branch block pattern. Cardiac monitoring: An order was placed for continuous cardiac monitoring. The monitor shows a rate of 112 with tachycardic and regular rhythm. Patient was placed on pulse oximetry Medical decision rules: None Imaging studies: I informally interpreted the patient's chest x-ray does not show obvious pulmonary edema or pneumonia with formal report to follow. HPI: Patient presents due to concern for shortness of breath. The patient states that he has had productive cough since yesterday with productive discolored sputum. Known history of COPD. Patient states that he has been taking his medications. EMS arrived on scene today and the patient was satting in the 70s on room air. The patient was immediately placed on BiPAP. Patient does complain of exertional shortness of breath. He does state that he has been sleeping on his side which seems to improve his symptoms but laying flat does not seem to necessarily make it worse. He does have a history of CHF as well as COPD. Patient states that he does have some chronic lower extremity swelling but has been compliant with his medications. Patient reportedly did have chest pain around did receive 1 single nitro spray. The patient also did receive a breathing treatment around. He does feel mildly improved since treatment. Patient states that he did have some chest pain that was 7 out of 10 improved to about a 4 and is now 0. PAST MEDICAL HISTORY: See Below PAST SURGICAL HISTORY: See Below SOCIAL HISTORY: See Below HOME MEDICATIONS: See Below ALLERGIES: See Below VITALS: See Below PHYSICAL EXAMINATION: GENERAL: Severe distress on BiPAP and tachypneic EYE EXAM: Normal conjunctiva. PERRL, no anisocoria and EOM's grossly intact w/o pain. OROPHARYNX: Moist mucus membranes, grossly normal dentition. NECK: Trachea midline, no stridor. LUNGS: Poor respiratory effort, decreased air movements, tachypnea HEART: Tachycardic and regular, no MRG. ABDOMEN: Abdomen soft, non-tender, no masses, no rebound or guarding. BACK: No CVA TTP. SKIN: No rashes and no bruising. UPPER EXTREMITIES: Upper extremities are grossly normal. LOWER EXTREMITIES: Grossly normal, 1-2+ symmetric lower extremity edema without calf pain or erythema. NEURO EXAM: A&O x3, cranial nerves II-XII grossly intact, normal speech, moves all 4 extremities. Past Med/Surg History Problem List (Updated 08/26/24 @ 09:11 by Yobany Lopez MD) History of congestive heart failure (Acute) Acute on chronic respiratory failure with hypoxia and hypercapnia (Acute) Chronic HFrEF (heart failure with reduced ejection fraction) Acute respiratory failure with hypoxia and hypercapnia Mood disorder NSVT (nonsustained ventricular tachycardia) Candidiasis of mouth and esophagus Dermatitis of both feet Hypertension Acute bronchitis (Acute) Acute exacerbation of chronic obstructive pulmonary disease (Acute) Gastric intestinal metaplasia GERD (gastroesophageal reflux disease) Dysphagia reason for upcoming EGD GERD (gastroesophageal reflux disease) Hypotension (Acute) Syncope (Acute) Back pain due to injury Elevated troponin I level Leukocytosis Tachypnea Acute exacerbation of chronic obstructive pulmonary disease (Acute) Hypoxia (Acute) Lumbar contusion (Acute) Fall (Acute) Abdominal pain Elevated bilirubin Dysphagia COPD (chronic obstructive pulmonary disease) (Acute) controlled with regular inhalers, rare res inh use Cardiomyopathy (Chronic) Cardiac defibrillator in place (Chronic) placed in 2013 > [facility] > last checked approx 2 mos ago > follows with cardio at [facility] [place] > placed for cardiomyopathy per pt and irregular heart beats Medical History Hx of cardiomyopathy T8 vertebral fracture healed on own > does get pain to area occasionally Kidney stones passed on own Low blood pressure happens on occasion History of COVID-19 Apr 22, 2022 > tested at [facility] in [place] > sore throat, chills, loss of taste and smell, no appetite > taste is just now coming back Emphysema of lung Surgical History History of cardiac cath 2003 > no stents Hx of vasectomy Hx of inguinal hernia repair History of tooth extraction Family History Other Family history non-contributory Social History Smoking Status: Former smoker Tobacco Type: Cigarettes packs per day: 2; Cigarettes Per Day: 20; Second Hand Exposure: Yes; Do You Dip or Chew Tobacco: No; Hx Alcohol Use: No Hx Substance Use: No Preferred Language: Yoruba Communication Ability: Effective Supervisor Pipeline Required: No Beliefs That Will Affect Care: None marital status: Current Living Situation: Family Current Living Situation Comment: Cousin lives with him current occupational status: retired Other Information That Helps Us Care for You: No Feels Safe at Home: Yes Safety Concerns: Feels Safe At This Time Assistive Devices: Denture - Upper, Denture - Lower and Glasses Allergies Allergies Allergy/AdvReac Type Severity Reaction Status Date / Time fire ant Allergy Intermediate Swelling Verified 08/25/24 16:00 of Lip/Tongue/Throat lisinopril AdvReac Intermediate Cough Verified 08/25/24 16:00 Home Meds Home Medications Medication Instructions Recorded Confirmed losartan 25 mg tablet 12.5 mg PO QPM 11/11/19 08/25/24 albuterol sulfate 90 mcg/actuation 2 puff inhalation Q6H PRN 10/26/21 08/25/24 aerosol inhaler Shortness Of Breath cholecalciferol (vitamin D3) 25 25 mcg PO QAM 06/03/22 08/25/24 mcg (1,000 unit) capsule budesonide 160 mcg-glycopyr 9 2 inh inhalation BID 02/04/23 08/25/24 mcg-formot 4.8 mcg/actuation HFA inhaler (Breztri Aerosphere) spironolactone 25 mg tablet 12.5 mg PO QAM 02/11/23 08/25/24 metoprolol succinate 50 mg 25 mg PO QAM 04/13/24 08/25/24 tablet,extended release 24 hr roflumilast 500 mcg tablet 0 mcg PO DAILY 04/13/24 08/25/24 (Daliresp) calcium carbonate 200 mg PO BID PRN Calcium 08/25/24 08/25/24 Supplementation carboxymethylcellulose sodium 1 % 1 drp ophthalmic (eye) DAILY PRN 08/25/24 08/25/24 eye drops (Artificial Tears Dry Eye(S) (carboxymethylcellulose)) erythromycin 5 mg/gram (0.5 %) eye 1 applic OPR BID 08/25/24 08/25/24 ointment fluticasone propionate 50 2 spray intranasal HS 08/25/24 08/25/24 mcg/actuation nasal spray,suspension guaifenesin 600 mg tablet, 600 mg PO BID PRN Cough/Congestion 08/25/24 08/25/24 extended release 12 hr (Mucinex) pantoprazole 40 mg tablet,delayed 40 mg PO BID 08/25/24 08/25/24 release tamsulosin 0.4 mg capsule 0.4 mg PO HS 08/25/24 08/25/24 Previous Rx's Medication Instructions Recorded melatonin 3 mg tablet 3 mg PO HS PRN sleep #0 tabs 08/10/24 mirtazapine 15 mg tablet 7.5 mg (1/2 x 15 mg) PO HS #30 tabs 08/10/24 Results & Data (ED) Vital Signs Vital Signs - 24 hr 08/25/24 14:29 08/25/24 14:30 08/25/24 14:45 Temperature 36.5 C Temperature Source Oral Pulse Rate 134 H 121 H Pulse Rate [Right Apical] 118 H Pulse Rate from SpO2 Sensor Pulse Rhythm Regular Pulse Strength Normal Respiratory Rate 33 H 28 H 30 H Respiratory Effort / Characteristics Spontaneous Accessory Muscle Use Short of Breath Non-Labored Spontaneous Respiratory Depth Shallow Normal Respiratory Pattern Tachypnea Regular Blood Pressure 90/75 L Blood Pressure [Right Arm] Blood Pressure Mean 80 Blood Pressure Mean [Right Arm] Blood Pressure Position Lying Pulse Oximetry 97 100 100 Oxygen Delivery Method BiPAP BiPAP Fraction of Inspired Oxygen 50 50 Sepsis Recent Fever Within 48 Hours Yes Sepsis New/Unexplained Change in Mental Status N/A Sepsis Action Taken by Nursing Physician Notified 08/25/24 14:47 08/25/24 14:51 08/25/24 14:57 Temperature Temperature Source Pulse Rate 120 H 125 H 123 H Pulse Rate [Right Apical] Pulse Rate from SpO2 Sensor 125 H 122 H Pulse Rhythm Pulse Strength Respiratory Rate 33 H 31 H Respiratory Effort / Characteristics Respiratory Depth Respiratory Pattern Blood Pressure Blood Pressure [Right Arm] Blood Pressure Mean Blood Pressure Mean [Right Arm] Blood Pressure Position Pulse Oximetry 100 100 Oxygen Delivery Method Fraction of Inspired Oxygen Sepsis Recent Fever Within 48 Hours Sepsis New/Unexplained Change in Mental Status Sepsis Action Taken by Nursing 08/25/24 15:00 08/25/24 15:15 08/25/24 15:15 Temperature Temperature Source Pulse Rate Pulse Rate [Right Apical] Pulse Rate from SpO2 Sensor Pulse Rhythm Pulse Strength Respiratory Rate Respiratory Effort / Characteristics Respiratory Depth Respiratory Pattern Blood Pressure 99/78 L 106/78 106/78 Blood Pressure [Right Arm] Blood Pressure Mean 83 99 99 Blood Pressure Mean [Right Arm] Blood Pressure Position Pulse Oximetry Oxygen Delivery Method Fraction of Inspired Oxygen Sepsis Recent Fever Within 48 Hours Sepsis New/Unexplained Change in Mental Status Sepsis Action Taken by Nursing 08/25/24 15:30 08/25/24 15:30 08/25/24 15:30 Temperature Temperature Source Pulse Rate 112 H Pulse Rate [Right Apical] Pulse Rate from SpO2 Sensor 112 H Pulse Rhythm Pulse Strength Respiratory Rate 26 H Respiratory Effort / Characteristics Respiratory Depth Respiratory Pattern Blood Pressure 107/84 107/84 Blood Pressure [Right Arm] Blood Pressure Mean 87 87 Blood Pressure Mean [Right Arm] Blood Pressure Position Pulse Oximetry 97 Oxygen Delivery Method Fraction of Inspired Oxygen Sepsis Recent Fever Within 48 Hours Sepsis New/Unexplained Change in Mental Status Sepsis Action Taken by Nursing 08/25/24 15:37 08/25/24 15:38 08/25/24 15:38 Temperature Temperature Source Pulse Rate 114 H Pulse Rate [Right Apical] 115 H Pulse Rate from SpO2 Sensor Pulse Rhythm Pulse Strength Respiratory Rate 24 Respiratory Effort / Characteristics Short of Breath Tripoding Respiratory Depth Normal Respiratory Pattern Blood Pressure Blood Pressure [Right Arm] 107/84 Blood Pressure Mean Blood Pressure Mean [Right Arm] 91 Blood Pressure Position Pulse Oximetry 97 99 98 Oxygen Delivery Method BiPAP BiPAP Fraction of Inspired Oxygen Sepsis Recent Fever Within 48 Hours Sepsis New/Unexplained Change in Mental Status Sepsis Action Taken by Nursing 08/25/24 15:41 08/25/24 15:42 08/25/24 15:45 Temperature Temperature Source Pulse Rate 117 H Pulse Rate [Right Apical] Pulse Rate from SpO2 Sensor 118 H Pulse Rhythm Pulse Strength Respiratory Rate 24 Respiratory Effort / Characteristics Short of Breath Respiratory Depth Respiratory Pattern Tachypnea Blood Pressure 115/84 Blood Pressure [Right Arm] Blood Pressure Mean 96 Blood Pressure Mean [Right Arm] Blood Pressure Position Pulse Oximetry 98 Oxygen Delivery Method BiPAP Fraction of Inspired Oxygen Sepsis Recent Fever Within 48 Hours Sepsis New/Unexplained Change in Mental Status Sepsis Action Taken by Nursing 08/25/24 15:51 08/25/24 16:06 08/25/24 16:21 Temperature Temperature Source Pulse Rate 109 H 93 H 103 H Pulse Rate [Right Apical] Pulse Rate from SpO2 Sensor 105 H 90 104 H Pulse Rhythm Pulse Strength Respiratory Rate 22 19 18 Respiratory Effort / Characteristics Respiratory Depth Respiratory Pattern Blood Pressure Blood Pressure [Right Arm] Blood Pressure Mean Blood Pressure Mean [Right Arm] Blood Pressure Position Pulse Oximetry 97 100 100 Oxygen Delivery Method Fraction of Inspired Oxygen Sepsis Recent Fever Within 48 Hours Sepsis New/Unexplained Change in Mental Status Sepsis Action Taken by Shelter Medications Current Medication List: was personally reviewed by me Laboratory Data Attestation: I reviewed the patient's lab results. 08/26/24 05:44 08/26/24 05:44 Lab Results 08/25/24 08/25/24 08/25/24 Range/Units 14:36 14:45 15:33 WBC 24.09 H (4.8-10.8) K/ul RBC 4.51 L (4.70-6.10) M/uL Hgb 13.7 L (14.0-18.0) g/dl POC Hgb 14.3 (14.0-18.0) g/dl Hct 41.6 L (42.0-52.0) % POC Hct 42 (42-52) % MCV 92.2 (80.0-100.0) fL MCH 30.4 (25.0-34.0) pg MCHC 32.9 (32.0-36.0) g/dL RDW Std Deviation 48.6 H (36.4-46.3) fL RDW Coeff of Renee 14.7 H (11.5-14.5) % Plt Count 326 (130-400) K/uL MPV 9.4 (9.4-12.4) fL Immature Gran % (Auto) 3.5 % Neut % (Auto) 86.1 % Lymph % (Auto) 3.7 % Josephine % (Auto) 5.1 % Eos % (Auto) 1.2 % Baso % (Auto) 0.4 % Neut # (Auto) 20.74 H (1.40-6.50) K/uL Lymph # (Auto) 0.90 L (1.20-3.40) K/uL Josephine # (Auto) 1.24 H (0.11-0.59) K/uL Eos # (Auto) 0.28 (0.00-0.50) K/uL Baso # (Auto) 0.09 (0.00-0.20) K/uL Immature Gran # (Auto) 0.84 H (0.01-0.20) K/uL PT 11.3 (9.0-12.0) Seconds INR 1.0 (0.9-1.1) APTT 25 (21-31) Seconds PTT Ratio 0.9 POC pH 7.27 L (7.35-7.45) POC pCO2 61 H (35-46) mmHg POC pO2 160 H (80-95) mmHg POC HCO3 28 H (19-24) chrissie/L POC Total CO2 30 (24-31) mmol/L POC Base Excess 1.0 (-9-1.8) chrissie/L POC ABG O2 Sat 99.0 H (90-95) % POC Sodium 137 (135-144) mmol/L Sodium 139 (136-145) mmol/L POC Potassium 4.3 (3.3-5.0) mmol/L Potassium 4.4 (3.5-5.1) mmol/L Chloride 103 (98-107) mmol/L Carbon Dioxide 30 (21-32) mmol/L Anion Gap 6 (3-11) BUN 11 (6-23) mg/dl Creatinine 0.81 (0.6-1.4) mg/dl Est Cr Clr Drug Dosing 68.3 ml/min eGFR 94.85 BUN/Creatinine Ratio 13.6 (10-20) Glucose 123 H (70-99(Fasting)) mg/dl Calcium 8.7 (8.6-10.3) mg/dl Magnesium 1.9 (1.7-2.4) mg/dl Total Bilirubin 1.3 H (0.2-1.0) mg/dl AST 22 (13-39) U/L ALT 18 (7-52) U/L Alkaline Phosphatase 67 (34-104) U/L Troponin I High Sens 13.5 (0-20) pg/ml B-Natriuretic Peptide 424 H (0-100) pg/ml Total Protein 6.1 (6.0-8.3) gm/dl Albumin 3.8 (3.4-5.0) gm/dl Globulin 2.3 L (2.5-4.0) gm/dl Albumin/Globulin Ratio 1.7 (0.9-2) Procalcitonin < 0.02 (0-0.5) ng/ml Nasal Screen MRSA (PCR) (Negative) Adenovirus (PCR) Not Detected (NotDetected) B. pertussis DNA (PCR) Not Detected (NotDetected) B.parapertussis DNA PCR Not Detected (NotDetected) C. pneumoniae DNA (PCR) Not Detected (NotDetected) Coronavirus OC43 (PCR) Not Detected (NotDetected) Coronavirus HKU1 (PCR) Not Detected (NotDetected) Coronavirus 229E (PCR) Not Detected (NotDetected) SARS-CoV-2 (PCR) Not Detected (NotDetected) Coronavirus NL63 (PCR) Not Detected (NotDetected) Human Metapneumovir PCR Not Detected (NotDetected) Influenza Type A (PCR) Not Detected (NotDetected) Influenza Type B (PCR) Not Detected (NotDetected) M. pneumoniae (PCR) Not Detected (NotDetected) Parainfluenza 1 (PCR) Not Detected (NotDetected) Parainfluenza 2 (PCR) Not Detected (NotDetected) Parainfluenza 3 (PCR) Not Detected (NotDetected) Parainfluenza 4 (PCR) Not Detected (NotDetected) RSV (PCR) Not Detected (NotDetected) Entero/Rhino (PCR) Not Detected (NotDetected) 08/25/24 Range/Units 15:55 WBC (4.8-10.8) K/ul RBC (4.70-6.10) M/uL Hgb (14.0-18.0) g/dl POC Hgb (14.0-18.0) g/dl Hct (42.0-52.0) % POC Hct (42-52) % MCV (80.0-100.0) fL MCH (25.0-34.0) pg MCHC (32.0-36.0) g/dL RDW Std Deviation (36.4-46.3) fL RDW Coeff of Renee (11.5-14.5) % Plt Count (130-400) K/uL MPV (9.4-12.4) fL Immature Gran % (Auto) % Neut % (Auto) % Lymph % (Auto) % Josephine % (Auto) % Eos % (Auto) % Baso % (Auto) % Neut # (Auto) (1.40-6.50) K/uL Lymph # (Auto) (1.20-3.40) K/uL Josephine # (Auto) (0.11-0.59) K/uL Eos # (Auto) (0.00-0.50) K/uL Baso # (Auto) (0.00-0.20) K/uL Immature Gran # (Auto) (0.01-0.20) K/uL PT (9.0-12.0) Seconds INR (0.9-1.1) APTT (21-31) Seconds PTT Ratio POC pH (7.35-7.45) POC pCO2 (35-46) mmHg POC pO2 (80-95) mmHg POC HCO3 (19-24) chrissie/L POC Total CO2 (24-31) mmol/L POC Base Excess (-9-1.8) chrissie/L POC ABG O2 Sat (90-95) % POC Sodium (135-144) mmol/L Sodium (136-145) mmol/L POC Potassium (3.3-5.0) mmol/L Potassium (3.5-5.1) mmol/L Chloride (98-107) mmol/L Carbon Dioxide (21-32) mmol/L Anion Gap (3-11) BUN (6-23) mg/dl Creatinine (0.6-1.4) mg/dl Est Cr Clr Drug Dosing ml/min eGFR BUN/Creatinine Ratio (10-20) Glucose (70-99(Fasting)) mg/dl Calcium (8.6-10.3) mg/dl Magnesium (1.7-2.4) mg/dl Total Bilirubin (0.2-1.0) mg/dl AST (13-39) U/L ALT (7-52) U/L Alkaline Phosphatase (34-104) U/L Troponin I High Sens (0-20) pg/ml B-Natriuretic Peptide (0-100) pg/ml Total Protein (6.0-8.3) gm/dl Albumin (3.4-5.0) gm/dl Globulin (2.5-4.0) gm/dl Albumin/Globulin Ratio (0.9-2) Procalcitonin (0-0.5) ng/ml Nasal Screen MRSA (PCR) Negative (Negative) Adenovirus (PCR) (NotDetected) B. pertussis DNA (PCR) (NotDetected) B.parapertussis DNA PCR (NotDetected) C. pneumoniae DNA (PCR) (NotDetected) Coronavirus OC43 (PCR) (NotDetected) Coronavirus HKU1 (PCR) (NotDetected) Coronavirus 229E (PCR) (NotDetected) SARS-CoV-2 (PCR) (NotDetected) Coronavirus NL63 (PCR) (NotDetected) Human Metapneumovir PCR (NotDetected) Influenza Type A (PCR) (NotDetected) Influenza Type B (PCR) (NotDetected) M. pneumoniae (PCR) (NotDetected) Parainfluenza 1 (PCR) (NotDetected) Parainfluenza 2 (PCR) (NotDetected) Parainfluenza 3 (PCR) (NotDetected) Parainfluenza 4 (PCR) (NotDetected) RSV (PCR) (NotDetected) Entero/Rhino (PCR) (NotDetected) Administered Medications Acetaminophen (Acetaminophen 325 Mg Tab) 650 mg PO Q4H PRN PRN Reason: Pain or Fever Stop: 09/24/24 17:59 Last Admin: 08/26/24 07:55 Dose: 650 mg Documented By: Admin: 08/25/24 20:39 Dose: 650 mg Documented By: SHANKAR Albuterol (Albut/Ipratrop 3mg/0.5mg Neb 3 Ml Vial) 3 ml NEB Q4HWA [facility]; Protocol Stop: 09/24/24 19:59 Last Admin: 08/26/24 07:13 Dose: Not Given Documented By: Admin: 08/26/24 04:46 Dose: 3 ml Documented By: Admin: 08/25/24 19:54 Dose: Not Given Documented By: TMP Azithromycin (Azithromycin 250 Mg Tab) 500 mg PO Q24H [facility] Stop: 08/28/24 20:59 Last Admin: 08/25/24 21:30 Dose: 500 mg Documented By: SHANKAR Budesonide (Budesonide 0.5 Mg/2 Ml Vial (Pulmicort)) 0.5 mg NEB BIDR [facility] Stop: 09/24/24 18:59 Last Admin: 08/26/24 07:13 Dose: 0.5 mg Documented By: Admin: 08/25/24 19:42 Dose: 0.5 mg Documented By: SHARMIN Enoxaparin Sodium (Enoxaparin Inj 40 Mg/0.4 Ml Syr) 40 mg SQ QPM [facility] Stop: 09/24/24 20:59 Last Admin: 08/25/24 21:29 Dose: 40 mg Documented By: SHANKAR Erythromycin (Erythromycin Op Oint 5 Mg/Gm 3.5 Gm Tube) 1 appln OPR BID [facility] Stop: 09/04/24 20:59 Last Admin: 08/26/24 08:03 Dose: Not Given Documented By: Admin: 08/25/24 20:32 Dose: 1 appln Documented By: SHANKAR Fluticasone Propionate (Fluticasone Propionate Na Spr 16 Gm Btl) 2 sprays JONNY HS [facility] Stop: 09/24/24 20:59 Last Admin: 08/25/24 20:31 Dose: 2 sprays Documented By: SHANKAR Formoterol Fumarate (Formoterol 20 Mcg/2 Ml Vial) 20 mcg NEB BIDR [facility] Stop: 09/24/24 18:59 Last Admin: 08/26/24 07:12 Dose: 20 mcg Documented By: EALisa Admin: 08/25/24 19:42 Dose: 20 mcg Documented By: SHARMIN Guaifenesin (Guaifenesin 600 Mg Tabcr) 600 mg PO Q12 [facility] Stop: 09/24/24 20:59 Last Admin: 08/26/24 08:03 Dose: 600 mg Documented By: Admin: 08/25/24 20:31 Dose: 600 mg Documented By: SHANKAR Lidocaine (Lidocaine 5% 1 Patch) 1 patch TD [facility] Stop: 09/24/24 18:59 Last Admin: 08/26/24 08:02 Dose: 1 patch Documented By: Admin: 08/25/24 20:29 Dose: 1 patch Documented By: SHANKAR Metoprolol Succinate (Metoprolol Succ 25mg Ext Rel Tab) [facility] [place] [facility] Stop: 09/25/24 08:59 Last Admin: 08/26/24 08:04 Dose: 25 mg Documented By: TAMIA Mirtazapine (Mirtazapine Tab 15 Mg Tab) 7.5 mg PO [facility] Stop: 09/24/24 20:59 Last Admin: 08/25/24 20:33 Dose: 7.5 mg Documented By: SHANKAR Miscellaneous (Remove Lidoderm Patch) 1 each N/A DAILY@2100 [facility] Stop: 09/24/24 20:59 Last Admin: 08/25/24 20:33 Dose: Not Given Documented By: SHANKAR Pantoprazole Sodium (Pantoprazole 40 Mg Tab) 40 mg PO BID [facility] Stop: 09/24/24 20:59 Last Admin: 08/26/24 08:04 Dose: 40 mg Documented By: Admin: 08/25/24 20:30 Dose: 40 mg Documented By: SHANKAR Roflumilast (Roflumilast 500 Mcg Tab) 500 mcg PO DAILY [facility] Stop: 09/25/24 08:59 Last Admin: 08/26/24 08:05 Dose: 500 mcg Documented By: TAMIA Tamsulosin HCl (Tamsulosin Hcl 0.4 Mg Cap) 0.4 mg PO [facility] Stop: 09/24/24 20:59 Last Admin: 08/25/24 20:34 Dose: 0.4 mg Documented By: SHANKAR Discontinued Medications Furosemide (Furosemide 40 Mg/4 Ml Vial) 40 mg IV ONE ONE Stop: 08/25/24 14:56 Last Admin: 08/25/24 15:43 Dose: Not Given Documented By: DELIA Piperacillin Sod/Tazobactam Sod (Zosyn) 4.5 gm in 100 mls @ 200 mls/hr IV NOW ONE; Protocol Stop: 08/25/24 15:28 Last Infusion: 08/25/24 16:24 Dose: Infused Documented By: Admin: 08/25/24 15:46 Dose: 200 mls/hr Documented By: DELIA Sodium Chloride (Nss) 250 mls @ 999 mls/hr IV .Q16M ONE Stop: 08/25/24 15:28 Last Infusion: 08/25/24 15:46 Dose: Infused Documented By: Admin: 08/25/24 15:22 Dose: 999 mls/hr Documented By: DELIA Magnesium Sulfate/Dextrose (Magnesium Sulfate / D5w) 1 gm in 100 mls @ 50 mls/hr IV ONE ONE Stop: 08/26/24 04:25 Last Infusion: 08/26/24 04:47 Dose: Infused Documented By: Admin: 08/26/24 02:47 Dose: 50 mls/hr Documented By: SHANKAR Levalbuterol HCl (Levalbuterol 1.25 Mg/3 Ml Neb) 1.25 mg NEB NOW STA Stop: 08/25/24 14:40 Last Admin: 08/25/24 14:44 Dose: 1.25 mg Documented By: PABLITO Levalbuterol HCl (Levalbuterol 1.25 Mg/3 Ml Neb) 2.5 mg NEB NOW STA Stop: 08/25/24 15:18 Last Admin: 08/25/24 15:59 Dose: 2.5 mg Documented By: PABLITO Methylprednisolone (Methylprednisolone 125 Mg/2 Ml Vial) 125 mg IV NOW STA Stop: 08/25/24 14:40 Last Admin: 08/25/24 15:21 Dose: 125 mg Documented By: [facility] Imaging Data Radiologist's Impression: Chest X-Ray 08/25/24 14:39 XR chest 1V portable HISTORY: 69 years-old Male Dyspnea COMPARISON: CTA chest 08/07/2024 TECHNIQUE: AP view of the chest FINDINGS: Cardiac silhouette is unchanged. Left subclavian pacer/AICD. Emphysema with chronic fibrotic changes. Mildly progressed when near bibasilar densities. No pneumothorax, pleural effusion or pulmonary edema. Bones appear grossly intact. IMPRESSION: Severe emphysema with mildly progressed ill-defined bibasilar densities which may represent atelectasis versus a mild pneumonitis. ACT 112: Negative or not required by law. The above report was generated using voice recognition software. It may contain grammatical, syntax or spelling errors. Electronically signed by: Ihsan Ratliff M.D. 08/25/2024 3:10 PM Discharge Plan Visit Data Chief Complaint: Shortness of Breath/Dyspnea Stated Complaint: SOB ED Provider: Yobany Lopez Discharge Problem: Acute on chronic respiratory failure with hypoxia and hypercapnia, Acute exacerbation of chronic obstructive pulmonary disease, History of congestive heart failure Patient Disposition: Admitted As Inpatient Discharge Instructions Interventions: ED Discharge Assessment Last Done: 08/25/24 17:36
[2024-08-25] MEDS: LEVALBUTEROL 1.25 MG/3 ML NEB NEB STA ×2 (14:44→15:59)
[2024-08-25 14:53] LABS: Hematocrit (blood only) 41.6 % (42.0-52.0); Hemoglobin 13.7 g/dl (14.0-18.0); Mean Corpuscular Hemoglobin 30.4 pg (25.0-34.0); Mean Corpuscular Hgb Conc 32.9 g/dL (32.0-36.0); Mean Corpuscular Volume 92.2 fL (80.0-100.0); Mean Platelet Volume 9.4 fL (9.4-12.4); Platelet Count 326 K/uL (130-400); RDW Coefficient of Variation 14.7 % (11.5-14.5); RDW Standard Deviation 48.6 fL (36.4-46.3); Red Blood Count 4.51 M/uL (4.70-6.10); White Blood Count 24.09 K/ul (4.8-10.8)
[2024-08-25 14:58] LABS: iSTAT Arterial Blood Gas HCO3 28 meg/L (19-24); iSTAT Arterial Blood Gas pCO2 61 mmHg (35-46); iSTAT Arterial Blood Gas pH 7.27 (7.35-7.45); iSTAT Arterial Blood Gas pO2 160 mmHg (80-95); iSTAT Carbon Dioxide 30 mmol/L (24-31); iSTAT Hematocrit 42 % (42-52); iSTAT Hemoglobin 14.3 g/dl (14.0-18.0); iSTAT Potassium 4.3 mmol/L (3.3-5.0); iSTAT Sodium 137 mmol/L (135-144)
--- NOTE | 2024-08-25 15:11 | XRay Report ---
XR chest 1V portable HISTORY: 69 years-old Male Dyspnea COMPARISON: CTA chest 08/07/2024 TECHNIQUE: AP view of the chest FINDINGS: Cardiac silhouette is unchanged. Left subclavian pacer/AICD. Emphysema with chronic fibrotic changes. Mildly progressed when near bibasilar densities. No pneumothorax, pleural effusion or pulmonary duyen a. Bones appear grossly intact. IMPRESSION: Severe emphysema with mildly progressed ill-defined bibasilar densities which may represe nt atelectasis versus a mild pneumonitis. ACT 112: Negative or not required by law. The above report was generated using voice recognition software. It may contain grammatical, syntax o r spelling errors. Electronically signed by: Ihsan Ratliff M.D. 08/25/2024 3:10 PM
[2024-08-25 15:15] LABS: Albumin Globulin Ratio 1.7 (0.9-2); Albumin Level 3.8 gm/dl (3.4-5.0); BUN Creatinine Ratio 13.6 (10-20); Basophils # (auto) 0.09 K/uL (0.00-0.20); Basophils % (auto) 0.4 %; Bilirubin,Total 1.3 mg/dl (0.2-1.0); Calcium 8.7 mg/dl (8.6-10.3); Creatinine Clr Calc Pharmacy 68.3 ml/min; Eosinophils # (auto) 0.28 K/uL (0.00-0.50); Eosinophils % (auto) 1.2 %; Globulin 2.3 gm/dl (2.5-4.0); Immature Granulocytes # (auto) 0.84 K/uL (0.01-0.20); Immature Granulocytes % (auto) 3.5 %; Lymphocytes % (auto) 3.7 %; Magnesium 1.9 mg/dl (1.7-2.4); Monocytes # (auto) 1.24 K/uL (0.11-0.59); Monocytes % (auto) 5.1 %; Neutrophils # (auto) 20.74 K/uL (1.40-6.50); Neutrophils % (auto) 86.1 %; Potassium 4.4 mmol/L (3.5-5.1); Total Protein 6.1 gm/dl (6.0-8.3)
[2024-08-25 15:18] LABS: Troponin I High Sensitivity 13.5 pg/ml (0-20)
[2024-08-25] MEDS: methylPREDNISolone 125 MG/2 ML VIAL IV STA (15:21)
[2024-08-25] MEDS: SODIUM CHLORIDE 0.9% 250 ML IV ONE (15:22)
[2024-08-25 15:32] LABS: Partial Thromboplastin Ratio 0.9; Partial Thromboplastin Time 25 Seconds (21-31); Prothrombin Time 11.3 Seconds (9.0-12.0)
[2024-08-25] MEDS: FUROSEMIDE 40 MG/4 ML VIAL IV ONE (15:43)
[2024-08-25] MEDS: PIPERACILLIN/TAZOBACTAM 4.5 GM/100 ML BAG IV ONE (15:46)
--- NOTE | 2024-08-25 16:31 | Electrocardiogram Report ---
Test Reason : Blood Pressure : */* mmHG Vent. Rate : 122 BPM Atrial Rate : 122 BPM P-R Int : 146 ms QRS Dur : 122 ms QT Int : 320 ms P-R-T Axes : 85 99 83 degrees QTcB Int : 456 ms Sinus tachycardia with occasional Premature ventricular complexes and Fusion complexes Right bundle branch block Abnormal ECG When compared with ECG of 07-Aug-2024 14:41, Fusion complexes are now Present T wave inversion no longer evident in Anterior leads Confirmed by Brent Joshua ([id number]) on 08/25/2024 4:31:08 PM Referred By: Confirmed By: Brent Joshua
[2024-08-25 16:36] LABS: Adenovirus PCR Not Detected (NotDetected); Bordetella parapertussis PCR Not Detected (NotDetected); Bordetella pertussis PCR Not Detected (NotDetected); Chlamydia pneumoniae PCR Not Detected (NotDetected); Coronavirus 229E PCR Not Detected (NotDetected); Coronavirus CoV-2 (COVID19)PCR Not Detected (NotDetected); Coronavirus HKU1 PCR Not Detected (NotDetected); Coronavirus NL63 PCR Not Detected (NotDetected); Coronavirus OC43PCR Not Detected (NotDetected); Human Metapneumovirus PCR Not Detected (NotDetected); Influenza A PCR Not Detected (NotDetected); Influenza B PCR Not Detected (NotDetected); Mycoplasma pneumoniae PCR Not Detected (NotDetected); Parainfluenza Virus 1 PCR Not Detected (NotDetected); Parainfluenza Virus 2 PCR Not Detected (NotDetected); Parainfluenza Virus 3 PCR Not Detected (NotDetected); Parainfluenza Virus 4 PCR Not Detected (NotDetected); Respiratory Syncytial VirusPCR Not Detected (NotDetected); Rhinovirus/Enterovirus PCR Not Detected (NotDetected)
--- NOTE | 2024-08-25 17:06 | History & Physical Report ---
Date of Service August 25, 2024 Assessment & Plan (1) Acute respiratory failure with hypoxia and hypercapnia: Plan: Secondary to COPD exacerbation Started on BiPAP in the ER, historically can wean off quickly but may need overnight, will wean to nasal cannula now and repeat VBG Aim O2 sats 88-92% (2) Acute exacerbation of chronic obstructive pulmonary disease: Plan: Solu-Medrol 125mg IV given in the ER, continue 40mg IV daily Formoterol/Budesonide Nebs BID Duonebs q4hwa Azithromycin 500mg PO daily for 3 days Sputum culture (3) Chronic HFrEF (heart failure with reduced ejection fraction): Plan: Hold spironolactone current as appears clinically dry, required Lasix last admission Continue metoprolol succinate (4) Compression fracture of T5 vertebra: Plan: Diagnosed last admission Continue lidocaine patches Plan VTE Prophylaxis - Lovenox 40mg SQ daily Diet - regular Disposition - admit to PCU History of Present Illness Chief Complaint: Shortness of breath Primary Care Provider: [facility] Sonu Jerome is a 69 year old male with COPD who presents to the ER with shortness of breath and increased productive cough for the last 2 days as he has come off prednisone. He was recently admitted for COPD exacerbation at the end of July and reports doing well initially until 2 days ago. He reports being much improved since steroids, nebulizers and BiPAP started in the ER. He feels this is similar to his prior episode in July. He reports compliance with his inhalers at home. Also having some left sided chest pain on deep inspiration and palpation, currently chest pain free at rest. Allergies Allergy/AdvReac Type Severity Reaction Status Date / Time fire ant Allergy Intermediate Swelling Verified 08/25/24 16:00 of Lip/Tongue/Throat lisinopril AdvReac Intermediate Cough Verified 08/25/24 16:00 Home Medications Medication Instructions Recorded Confirmed Type losartan 25 mg tablet 12.5 mg PO QPM 11/11/19 08/25/24 History albuterol sulfate 90 mcg/actuation 2 puff inhalation Q6H PRN 10/26/21 08/25/24 History aerosol inhaler Shortness Of Breath cholecalciferol (vitamin D3) 25 25 mcg PO QAM 06/03/22 08/25/24 History mcg (1,000 unit) capsule budesonide 160 mcg-glycopyr 9 2 inh inhalation BID 02/04/23 08/25/24 History mcg-formot 4.8 mcg/actuation HFA inhaler (Breztri Aerosphere) spironolactone 25 mg tablet 12.5 mg PO QAM 02/11/23 08/25/24 History metoprolol succinate 50 mg 25 mg PO QAM 04/13/24 08/25/24 History tablet,extended release 24 hr roflumilast 500 mcg tablet 0 mcg PO DAILY 04/13/24 08/25/24 History (Daliresp) melatonin 3 mg tablet 3 mg PO HS PRN sleep #0 tabs 08/10/24 08/25/24 Rx mirtazapine 15 mg tablet 7.5 mg (1/2 x 15 mg) PO HS #30 tabs 08/10/24 08/25/24 Rx calcium carbonate 200 mg PO BID PRN Calcium 08/25/24 08/25/24 History Supplementation carboxymethylcellulose sodium 1 % 1 drp ophthalmic (eye) DAILY PRN 08/25/24 08/25/24 History eye drops (Artificial Tears Dry Eye(S) (carboxymethylcellulose)) erythromycin 5 mg/gram (0.5 %) eye 1 applic OPR BID 08/25/24 08/25/24 History ointment fluticasone propionate 50 2 spray intranasal HS 08/25/24 08/25/24 History mcg/actuation nasal spray,suspension guaifenesin 600 mg tablet, 600 mg PO BID PRN Cough/Congestion 08/25/24 08/25/24 History extended release 12 hr (Mucinex) pantoprazole 40 mg tablet,delayed 40 mg PO BID 08/25/24 08/25/24 History release tamsulosin 0.4 mg capsule 0.4 mg PO HS 08/25/24 08/25/24 History Past Med/Surg History Problem List (Updated 08/26/24 @ 06:53 by Ryland Wyman MD) Chronic HFrEF (heart failure with reduced ejection fraction) Acute respiratory failure with hypoxia and hypercapnia Mood disorder NSVT (nonsustained ventricular tachycardia) Candidiasis of mouth and esophagus Dermatitis of both feet Hypertension Acute bronchitis (Acute) Acute exacerbation of chronic obstructive pulmonary disease (Acute) Gastric intestinal metaplasia GERD (gastroesophageal reflux disease) Dysphagia reason for upcoming EGD GERD (gastroesophageal reflux disease) Hypotension (Acute) Syncope (Acute) Back pain due to injury Elevated troponin I level Leukocytosis Tachypnea Acute exacerbation of chronic obstructive pulmonary disease (Acute) Hypoxia (Acute) Lumbar contusion (Acute) Fall (Acute) Abdominal pain Elevated bilirubin Dysphagia COPD (chronic obstructive pulmonary disease) (Acute) controlled with regular inhalers, rare res inh use Cardiomyopathy (Chronic) Cardiac defibrillator in place (Chronic) placed in 2013 > [employer] > last checked approx 2 mos ago > follows with cardio at [facility] in [place] > placed for cardiomyopathy per pt and irregular heart beats Medical History (Updated 08/26/24 @ 06:53 by Ryland Wyman MD) Hx of cardiomyopathy T8 vertebral fracture healed on own > does get pain to area occasionally Kidney stones passed on own Low blood pressure happens on occasion History of COVID-19 Apr 22, 2022 > tested at [facility] in [place] > sore throat, chills, loss of taste and smell, no appetite > taste is just now coming back Emphysema of lung Surgical History History of cardiac cath 2003 > no stents Hx of vasectomy Hx of inguinal hernia repair History of tooth extraction Family History Other Family history non-contributory Social History Smoking Status: Former smoker Tobacco Type: Cigarettes packs per day: 2; Cigarettes Per Day: 20; Second Hand Exposure: Yes; Do You Dip or Chew Tobacco: No; Hx Alcohol Use: No Hx Substance Use: No Preferred Language: Kiswahili Communication Ability: Effective Evp Strategy Required: No Beliefs That Will Affect Care: None marital status: Current Living Situation: Family Current Living Situation Comment: Cousin lives with him current occupational status: retired Other Information That Helps Us Care for You: No Feels Safe at Home: Yes Safety Concerns: Feels Safe At This Time Assistive Devices: Denture - Upper, Denture - Lower and Glasses Review of Systems Review of Systems: All systems reviewed & are unremarkable except as noted in HPI & below Physical Exam Constitutional: well developed and + acute distress (respiratory); + not well nourished Respiratory: + respiratory distress, + labored breath ing, + uses accessory muscles and + prolonged expiratory phase; + not able to speak in complete sentence Auscultation: + diminished lung sounds and + wheezes (expiratory); no crackles, no rales and no rhonchi Cardiovascular: Rate/Rhythm: regular rhythm and + tachycardic Heart Sounds: no murmur Extremities: normal capillary refill and + pedal edema; no calf tenderness Gastrointestinal (Abdomen): normal bowel sounds, soft, nontender, no hepatosplenomegaly Musculoskeletal: no cyanosis or clubbing, extremities motor strength 5/5 Skin: no rashes, warm and dry Neurologic: moves all extremities and awake; not confused Psychiatric: A+Ox3, euthymic affect Results & Data Results & Data Vital Signs (Past 12 Hours) Vital Signs Temp Pulse Pulse Resp BP BP Pulse Ox 08/25/24 16:21 103 H 18 100 08/25/24 16:06 93 H 19 100 08/25/24 15:51 109 H 22 97 08/25/24 15:45 115/84 08/25/24 15:42 117 H 24 98 08/25/24 15:41 08/25/24 15:38 115 H 24 107/84 98 08/25/24 15:38 99 08/25/24 15:37 114 H 97 08/25/24 15:30 107/84 08/25/24 15:30 107/84 08/25/24 15:30 112 H 26 H 97 08/25/24 15:15 106/78 08/25/24 15:15 106/78 08/25/24 15:00 99/78 L 08/25/24 14:57 123 H 31 H 100 08/25/24 14:51 125 H 33 H 100 08/25/24 14:47 120 H 08/25/24 14:45 118 H 30 H 100 08/25/24 14:30 36.5 C 121 H 28 H 90/75 L 100 08/25/24 14:29 134 H 33 H 97 O2 Del Method FiO2 08/25/24 16:21 08/25/24 16:06 08/25/24 15:51 08/25/24 15:45 08/25/24 15:42 08/25/24 15:41 BiPAP 08/25/24 15:38 08/25/24 15:38 BiPAP 08/25/24 15:37 BiPAP 08/25/24 15:30 08/25/24 15:30 08/25/24 15:30 08/25/24 15:15 08/25/24 15:15 08/25/24 15:00 08/25/24 14:57 08/25/24 14:51 08/25/24 14:47 08/25/24 14:45 BiPAP 50 08/25/24 14:30 BiPAP 08/25/24 14:29 50 Laboratory Results Abnormal lab results 08/25/24 08/25/24 Range/Units 14:36 14:45 WBC 24.09 H (4.8-10.8) K/ul RBC 4.51 L (4.70-6.10) M/uL Hgb 13.7 L (14.0-18.0) g/dl Hct 41.6 L (42.0-52.0) % RDW Std Deviation 48.6 H (36.4-46.3) fL RDW Coeff of Renee 14.7 H (11.5-14.5) % Neut # (Auto) 20.74 H (1.40-6.50) K/uL Lymph # (Auto) 0.90 L (1.20-3.40) K/uL Cherry # (Auto) 1.24 H (0.11-0.59) K/uL Immature Gran # (Auto) 0.84 H (0.01-0.20) K/uL POC pH 7.27 L (7.35-7.45) POC pCO2 61 H (35-46) mmHg POC pO2 160 H (80-95) mmHg POC HCO3 28 H (19-24) chrissie/L POC ABG O2 Sat 99.0 H (90-95) % Glucose 123 H (70-99(Fasting)) mg/dl Total Bilirubin 1.3 H (0.2-1.0) mg/dl B-Natriuretic Peptide 424 H (0-100) pg/ml Globulin 2.3 L (2.5-4.0) gm/dl Diagnostic Findings XR chest 1V portable HISTORY: 69 years-old Male Dyspnea COMPARISON: CTA chest 08/07/2024 TECHNIQUE: AP view of the chest FINDINGS: Cardiac silhouette is unchanged. Left subclavian pacer/AICD. Emphysema with chronic fibrotic changes. Mildly progressed when near bibasilar densities. No pneumothorax, pleural effusion or pulmonary edema. Bones appear grossly intact. IMPRESSION: Severe emphysema with mildly progressed ill-defined bibasilar densities which may represent atelectasis versus a mild pneumonitis. Medications Administered ER Medications Given: Solu-Medrol 125mg IV Levalbuterol 1.25mg NEB Zosyn 4.5g IV Code Status & VTE Plan Code Status Full VTE Prophylaxis Plan VTE Prophylaxis will be ordered: Yes PG Care Time/CCT Total # of Minutes Spent Total Time Spent with Patient: Total time spent is greater than 50% in coordination of care (as documented) at patient's floor/unit and/or counseling patient: Coding Level of Care Code 77704 INT INP/OBS CARE 3/75MIN Diagnoses Acute respiratory failure with hypoxia and hypercapnia J96.01; J96.02 Acute exacerbation of chronic obstructive pulmonary disease J44.1 Chronic HFrEF (heart failure with reduced ejection fraction) I50.22 Compression fracture of T5 vertebra S22.050A Encounter type: initial encounter (4) Compression fracture of T5 vertebra Encounter type: initial encounter Qualified Code(s): S22.050A - Wedge compression fracture of T5-T6 vertebra, initial encounter for closed fracture
[2024-08-25] MEDS ORDERED: ARTIFICIAL TEARS OP PRN (18:09)
[2024-08-25] MEDS: FORMOTEROL 20 MCG/2 ML VIAL NEB SCH (19:42)
[2024-08-25] MEDS: BUDESONIDE 0.5 MG/2 ML VIAL (PULMICORT) NEB SCH (19:42)
[2024-08-25] MEDS: ALBUT/IPRATROP 3MG/0.5MG NEB 3 ML VIAL NEB SCH (19:54)
[2024-08-25] MEDS: LIDOCAINE 5% 1 PATCH TD SCH (20:29)
[2024-08-25] MEDS: PANTOprazole 40 MG TAB PO SCH (20:30)
[2024-08-25] MEDS: FLUTICASONE PROPIONATE NA SPR 16 GM BTL NAE SCH (20:31)
[2024-08-25] MEDS: guaiFENesin 600 MG TABCR PO SCH (20:31)
[2024-08-25] MEDS: ERYTHROMYCIN OP OINT 5 MG/GM 3.5 GM TUBE OPR SCH (20:32)
[2024-08-25] MEDS: MIRTAZAPINE TAB 15 MG TAB PO SCH (20:33)
[2024-08-25] MEDS: TAMSULOSIN HCL 0.4 MG CAP PO SCH (20:34)
[2024-08-25] MEDS: ACETAMINOPHEN 325 MG TAB PO PRN (20:39)
[2024-08-25 20:48] LABS: Appearance Urine Clear (Clear); Bacteria Urine Automated None Seen (None Seen); Bilirubin Urine Negative (Negative); Blood Urine Negative (Negative); Color Urine Yellow; Epithelial Cell Urine Auto 0-2 /hpf (0-2); Glucose Urine UA Negative (Negative); Hyaline Casts Urine Present /lpf (None Presnt); Ketones Urine Negative (Negative); Leukocyte Esterase Urine Negative (Negative); Nitrite Urine Negative (Negative); Protein Urine Trace (Negative); RBC Urine Automated 0-2 /hpf (0-2); Specific Gravity Urine 1.027 (1.000-1.030); Urobilinogen Urine Negative (Negative); WBC Urine Automated 0-5 /hpf (0-5)
[2024-08-25 21:01] LABS: HCO3 VBG 30 mmol/L; Oxygen Saturation VBG < 60.0 %; PCO2 VBG 59 mmHg (38-50); PO2 VBG 25 mmHg; pH VBG 7.31 (7.36-7.41)
[2024-08-25] MEDS: ENOXAPARIN INJ 40 MG/0.4 ML SYR SQ SCH (21:29)
[2024-08-25] MEDS: AZITHROMYCIN 250 MG TAB PO SCH (21:30)
[2024-08-26] MEDS: MAGNESIUM SULFATE / D5W 1 GM/100 ML BAG IV ONE (02:47)
[2024-08-26 05:49] LABS: Base Excess VBG 1.8 mEq/L; HCO3 VBG 29 mmol/L; Oxygen Saturation VBG 63.5 %; PCO2 VBG 53 mmHg (38-50); PO2 VBG 36 mmHg; pH VBG 7.34 (7.36-7.41)
[2024-08-26 05:58] LABS: Hematocrit (blood only) 39.2 % (42.0-52.0); Mean Corpuscular Hemoglobin 30.4 pg (25.0-34.0); Mean Corpuscular Hgb Conc 33.2 g/dL (32.0-36.0); Mean Corpuscular Volume 91.8 fL (80.0-100.0); Mean Platelet Volume 9.3 fL (9.4-12.4); Platelet Count 274 K/uL (130-400); RDW Coefficient of Variation 14.7 % (11.5-14.5); RDW Standard Deviation 48.9 fL (36.4-46.3); Red Blood Count 4.27 M/uL (4.70-6.10); White Blood Count 13.96 K/ul (4.8-10.8)
[2024-08-26 06:11] LABS: BUN Creatinine Ratio 18.5 (10-20); Calcium 8.9 mg/dl (8.6-10.3); Creatinine Clr Calc Pharmacy 65.6 ml/min; Magnesium 2.2 mg/dl (1.7-2.4); Potassium 4.4 mmol/L (3.5-5.1)
[2024-08-26 06:18] LABS: Basophils # (auto) 0.02 K/uL (0.00-0.20); Basophils % (auto) 0.1 %; Immature Granulocytes # (auto) 0.28 K/uL (0.01-0.20); Lymphocytes # (auto) 0.43 K/uL (1.20-3.40); Lymphocytes % (auto) 3.1 %; Monocytes # (auto) 0.37 K/uL (0.11-0.59); Monocytes % (auto) 2.7 %; Neutrophils # (auto) 12.86 K/uL (1.40-6.50); Neutrophils % (auto) 92.1 %
[2024-08-26] MEDS: METOPROLOL SUCC 25MG EXT REL TAB PO SCH (08:04)
[2024-08-26] MEDS: ROFLUMILAST 500 MCG TAB PO SCH (08:05)
--- NOTE | 2024-08-26 10:31 | Hospitalist Progress Note ---
Date of Service August 26, 2024 Assessment & Plan (1) Acute respiratory failure with hypoxia and hypercapnia: (2) Chronic HFrEF (heart failure with reduced ejection fraction): (3) Acute exacerbation of chronic obstructive pulmonary disease: (4) Cardiac defibrillator in place: (5) Compression fracture of T5 vertebra: Plan 69-year-old male with past medical history of COPD, chronic systolic CHF with reduced ejection fraction of 25% with defibrillator who was recently discharged from [facility] on 08/10/2024 for COPD/CHF presents back to the hospital with shortness of breath and was found to be hypoxic and hypercapnic requiring BiPAP in ED #Acute hypoxic and hypercapnic respiratory failure #Acute exacerbation of chronic COPD Patient states he follows up with nurse informaticist at [facility] [place] Bio fire is negative Continue Brovana and budesonide nebs Xopenex nebs as needed Azithromycin 500 mg p.o. daily Solu-Medrol 40 mg IV twice daily Pro-Nolan is less than 0.02 Check repeat two-view chest x-ray since admission single view chest x-ray was poor quality film Patient has been weaned off BiPAP and is currently saturating well on room air Will need to step evaluation prior to discharge #Chronic systolic congestive heart failure with EF of 25% Patient has defibrillator in place He follows up with clinical research assistant at [facility] [place] Continue Toprol-XL 25 mg p.o. daily Spironolactone held today, resume spironolactone at lower dose of 12.5 mg p.o. daily tomorrow Resume losartan 12.5 mg p.o. every hs Monitor vital signs I/O monitoring Daily weights #T5 compression fracture Diagnosed on previous admission Continue Tylenol as needed and Lidoderm PT consult #Cachexia CT of the chest from previous admission did not show any evidence of lung mass Continue mirtazapine 7.5 mg p.o. nightly Outpatient follow-up with PCP for further investigations CODE STATUS: Discussed with patient, wishes to be full code DVT prophylaxis: Lovenox 40 mg subcutaneous daily Await PT recommendations regarding discharge disposition: Patient requesting walker Care plan discussed with patient, nursing staff Admission and Anticipated Discharge Date Admission Date: August 25, 2024 Subjective Patient seen and examined H&P reviewed Radiology reviewed Telemetry reviewed Labs reviewed Sitting at the edge of the bed, reports improvement in his shortness of breath. Chronic cough with pal sputum, denies any nausea, vomiting, diarrhea, abdominal pain, chest pain. He is off oxygen and is saturating well on room air. Required BiPAP in ED. Social history: Lives with his cousin. Feels he needs a walker. Feels weak and tired. Does not have home O2. Stopped smoking 10 years ago. Denies alcohol use Physical Exam Physical Exam: General: No acute distress, cachectic in appearance Psych: Awake and alert HEENT: Anicteric sclera, moist oral mucosa CVS: Regular rate and rhythm Lungs: Bilateral air entry, no wheezing noted Abdomen: Soft, nontender, no rebound, no guarding Ext: No lower extremity edema, no calf tenderness Neuro: No focal motor deficits noted Results & Data Results & Data Vital Signs (Past 12 Hours) Vital Signs Temp Pulse Pulse Resp BP Pulse Ox O2 Del Method 08/26/24 07:57 Nasal Cannula 08/26/24 07:28 36.4 C L 98 H 17 112/74 99 Room Air 08/26/24 07:15 74 16 99 Nasal Cannula 08/26/24 04:49 92 H 18 96 Room Air 08/26/24 03:33 36.7 C 93 H 16 96/64 L 93 Nasal Cannula 08/25/24 23:12 117 H 08/25/24 23:08 36.8 C 66 18 98/70 L 97 Nasal Cannula O2 Flow Rate 08/26/24 07:57 1 08/26/24 07:28 08/26/24 07:15 1 08/26/24 04:49 08/26/24 03:33 2 08/25/24 23:12 08/25/24 23:08 2 Laboratory Results Laboratory Results - last 24 hr 08/25/24 08/25/24 08/25/24 14:36 14:45 15:33 WBC 24.09 H RBC 4.51 L Hgb 13.7 L POC Hgb 14.3 Hct 41.6 L POC Hct 42 MCV 92.2 MCH 30.4 MCHC 32.9 RDW Std Deviation 48.6 H RDW Coeff of Renee 14.7 H Plt Count 326 MPV 9.4 Immature Gran % (Auto) 3.5 Neut % (Auto) 86.1 Lymph % (Auto) 3.7 Yell % (Auto) 5.1 Eos % (Auto) 1.2 Baso % (Auto) 0.4 Neut # (Auto) 20.74 H Lymph # (Auto) 0.90 L Yell # (Auto) 1.24 H Eos # (Auto) 0.28 Baso # (Auto) 0.09 Immature Gran # (Auto) 0.84 H PT 11.3 INR 1.0 APTT 25 PTT Ratio 0.9 POC pH 7.27 L POC pCO2 61 H POC pO2 160 H POC HCO3 28 H POC Total CO2 30 POC Base Excess 1.0 POC ABG O2 Sat 99.0 H VBG pH VBG pCO2 VBG pO2 VBG HCO3 VBG O2 Saturation VBG Base Excess POC Sodium 137 Sodium 139 POC Potassium 4.3 Potassium 4.4 Chloride 103 Carbon Dioxide 30 Anion Gap 6 BUN 11 Creatinine 0.81 Est Cr Clr Drug Dosing 68.3 eGFR 94.85 BUN/Creatinine Ratio 13.6 Glucose 123 H Calcium 8.7 Magnesium 1.9 Total Bilirubin 1.3 H AST 22 ALT 18 Alkaline Phosphatase 67 Troponin I High Sens 13.5 B-Natriuretic Peptide 424 H Total Protein 6.1 Albumin 3.8 Globulin 2.3 L Albumin/Globulin Ratio 1.7 Procalcitonin < 0.02 Urine Color Urine Appearance Urine pH Ur Specific Mallard Urine Protein Urine Glucose (UA) Urine Ketones Urine Blood Urine Nitrite Urine Bilirubin Urine Urobilinogen Ur Leukocyte Esterase Urine WBC (Auto) Urine RBC (Auto) U Hyaline Cast (Auto) U Epithel Cells (Auto) Urine Bacteria (Auto) Hyaline Casts Nasal Screen MRSA (PCR) Adenovirus (PCR) Not Detected B. pertussis DNA (PCR) Not Detected B.parapertussis DNA PCR Not Detected C. pneumoniae DNA (PCR) Not Detected Coronavirus OC43 (PCR) Not Detected Coronavirus HKU1 (PCR) Not Detected Coronavirus 229E (PCR) Not Detected SARS-CoV-2 (PCR) Not Detected Coronavirus NL63 (PCR) Not Detected Human Metapneumovir PCR Not Detected Influenza Type A (PCR) Not Detected Influenza Type B (PCR) Not Detected M. pneumoniae (PCR) Not Detected Parainfluenza 1 (PCR) Not Detected Parainfluenza 2 (PCR) Not Detected Parainfluenza 3 (PCR) Not Detected Parainfluenza 4 (PCR) Not Detected RSV (PCR) Not Detected Entero/Rhino (PCR) Not Detected 08/25/24 08/25/24 08/25/24 15:55 20:20 20:54 WBC RBC Hgb POC Hgb Hct POC Hct MCV MCH MCHC RDW Std Deviation RDW Coeff of Renee Plt Count MPV Immature Gran % (Auto) Neut % (Auto) Lymph % (Auto) Yell % (Auto) Eos % (Auto) Baso % (Auto) Neut # (Auto) Lymph # (Auto) Yell # (Auto) Eos # (Auto) Baso # (Auto) Immature Gran # (Auto) PT INR APTT PTT Ratio POC pH POC pCO2 POC pO2 POC HCO3 POC Total CO2 POC Base Excess POC ABG O2 Sat VBG pH 7.31 L VBG pCO2 59 H VBG pO2 25 VBG HCO3 30 VBG O2 Saturation < 60.0 VBG Base Excess 2.0 POC Sodium Sodium POC Potassium Potassium Chloride Carbon Dioxide Anion Gap BUN Creatinine Est Cr Clr Drug Dosing eGFR BUN/Creatinine Ratio Glucose Calcium Magnesium Total Bilirubin AST ALT Alkaline Phosphatase Troponin I High Sens B-Natriuretic Peptide Total Protein Albumin Globulin Albumin/Globulin Ratio Procalcitonin Urine Color Yellow Urine Appearance Clear Urine pH 5.0 Ur Specific Mallard 1.027 Urine Protein Trace H Urine Glucose (UA) Negative Urine Ketones Negative Urine Blood Negative Urine Nitrite Negative Urine Bilirubin Negative Urine Urobilinogen Negative Ur Leukocyte Esterase Negative Urine WBC (Auto) 0-5 Urine RBC (Auto) 0-2 U Hyaline Cast (Auto) 6-10 H U Epithel Cells (Auto) 0-2 Urine Bacteria (Auto) None Seen Hyaline Casts Present A Nasal Screen MRSA (PCR) Negative Adenovirus (PCR) B. pertussis DNA (PCR) B.parapertussis DNA PCR C. pneumoniae DNA (PCR) Coronavirus OC43 (PCR) Coronavirus HKU1 (PCR) Coronavirus 229E (PCR) SARS-CoV-2 (PCR) Coronavirus NL63 (PCR) Human Metapneumovir PCR Influenza Type A (PCR) Influenza Type B (PCR) M. pneumoniae (PCR) Parainfluenza 1 (PCR) Parainfluenza 2 (PCR) Parainfluenza 3 (PCR) Parainfluenza 4 (PCR) RSV (PCR) Entero/Rhino (PCR) 08/26/24 05:44 WBC 13.96 H D RBC 4.27 L Hgb 13.0 L POC Hgb Hct 39.2 L POC Hct MCV 91.8 MCH 30.4 MCHC 33.2 RDW Std Deviation 48.9 H RDW Coeff of Renee 14.7 H Plt Count 274 MPV 9.3 L Immature Gran % (Auto) 2.0 Neut % (Auto) 92.1 Lymph % (Auto) 3.1 Yell % (Auto) 2.7 Eos % (Auto) 0.0 Baso % (Auto) 0.1 Neut # (Auto) 12.86 H Lymph # (Auto) 0.43 L Yell # (Auto) 0.37 Eos # (Auto) 0.00 Baso # (Auto) 0.02 Immature Gran # (Auto) 0.28 H PT INR APTT PTT Ratio POC pH POC pCO2 POC pO2 POC HCO3 POC Total CO2 POC Base Excess POC ABG O2 Sat VBG pH 7.34 L VBG pCO2 53 H VBG pO2 36 VBG HCO3 29 VBG O2 Saturation 63.5 VBG Base Excess 1.8 POC Sodium Sodium 137 POC Potassium Potassium 4.4 Chloride 102 Carbon Dioxide 30 Anion Gap 5 BUN 15 Creatinine 0.81 Est Cr Clr Drug Dosing 65.6 eGFR 94.85 BUN/Creatinine Ratio 18.5 Glucose 129 H Calcium 8.9 Magnesium 2.2 Total Bilirubin AST ALT Alkaline Phosphatase Troponin I High Sens B-Natriuretic Peptide Total Protein Albumin Globulin Albumin/Globulin Ratio Procalcitonin Urine Color Urine Appearance Urine pH Ur Specific Mallard Urine Protein Urine Glucose (UA) Urine Ketones Urine Blood Urine Nitrite Urine Bilirubin Urine Urobilinogen Ur Leukocyte Esterase Urine WBC (Auto) Urine RBC (Auto) U Hyaline Cast (Auto) U Epithel Cells (Auto) Urine Bacteria (Auto) Hyaline Casts Nasal Screen MRSA (PCR) Adenovirus (PCR) B. pertussis DNA (PCR) B.parapertussis DNA PCR C. pneumoniae DNA (PCR) Coronavirus OC43 (PCR) Coronavirus HKU1 (PCR) Coronavirus 229E (PCR) SARS-CoV-2 (PCR) Coronavirus NL63 (PCR) Human Metapneumovir PCR Influenza Type A (PCR) Influenza Type B (PCR) M. pneumoniae (PCR) Parainfluenza 1 (PCR) Parainfluenza 2 (PCR) Parainfluenza 3 (PCR) Parainfluenza 4 (PCR) RSV (PCR) Entero/Rhino (PCR) Diagnostic Findings Chest X-Ray 08/25/24 14:39 XR chest 1V portable HISTORY: 69 years-old Male Dyspnea COMPARISON: CTA chest 08/07/2024 TECHNIQUE: AP view of the chest FINDINGS: Cardiac silhouette is unchanged. Left subclavian pacer/AICD. Emphysema with chronic fibrotic changes. Mildly progressed when near bibasilar densities. No pneumothorax, pleural effusion or pulmonary edema. Bones appear grossly intact. IMPRESSION: Severe emphysema with mildly progressed ill-defined bibasilar densities which may represent atelectasis versus a mild pneumonitis. ACT 112: Negative or not required by law. The above report was generated using voice recognition software. It may contain grammatical, syntax or spelling errors. Electronically signed by: Ihsan Ratliff M.D. 08/25/2024 3:10 PM PG Care Time/CCT Total # of Minutes Spent Total Time Spent with Patient: Total time spent is greater than 50% in coordination of care (as documented) at patient's floor/unit and/or counseling patient: Coding Level of Care Code 65515 SUB INP/OBS CARE 3/50MIN Diagnoses Acute respiratory failure with hypoxia and hypercapnia J96.01; J96.02 Chronic HFrEF (heart failure with reduced ejection fraction) I50.22 Acute exacerbation of chronic obstructive pulmonary disease J44.[address] Z95.810 Compression fracture of T5 vertebra S22.050A Encounter type: initial encounter (5) Compression fracture of T5 vertebra Encounter type: initial encounter Qualified Code(s): S22.050A - Wedge compression fracture of T5-T6 vertebra, initial encounter for closed fracture
[2024-08-26] MEDS ORDERED: methylPREDNISolone 125 MG/2 ML VIAL IV STA (10:34)
[2024-08-26] MEDS ORDERED: LEVALBUTEROL HCL 0.63 MG/3 ML NEB NEB PRN (10:34)
--- NOTE | 2024-08-26 11:23 | XRay Report ---
XR chest 2V PA/lateral CLINICAL HISTORY: cough/SOB ?PNEUMONIA ?CHF TECHNIQUE: 2 views of the chest were obtained. Comparison: Comparison is made to chest radiograph 08/25/2024 FINDINGS: Pacemaker defibrillator is seen. Calcified aortic knob is seen. The lungs are clear apart from emphys blank. Atelectasis is at the left lung base. No evidence of pleural effusion or pneumothorax. IMPRESSION: No acute abnormalities and in particular no radiographic evidence of pneumonia. ACT 112: Negative or not required by law. Electronically signed by: Akash Christianson M.D. 08/26/2024 11:21 AM
[2024-08-26] MEDS: methylPREDNISolone 40 MG in SYRINGE 0 ML IV ONE (12:44)
[2024-08-26] MEDS: ACETAMINOPHEN 500 MG TAB PO PRN (15:57)
[2024-08-26] MEDS: METOPROLOL SUCC 25MG EXT REL TAB PO ONE (17:48)
[2024-08-26] MEDS ORDERED: methylPREDNISolone 40 MG in SYRINGE 0 ML IV SCH (21:00)
[2024-08-26] MEDS ORDERED: methylPREDNISolone 125 MG/2 ML VIAL IV SCH (21:00)
[2024-08-26] MEDS: LOSARTAN POTASSIUM 25 MG TAB PO SCH (21:35)
[2024-08-26] MEDS: methylPREDNISolone 20 MG in SYRINGE 0 ML IV SCH (21:39)
[2024-08-27 06:26] LABS: Hematocrit (blood only) 37.5 % (42.0-52.0); Hemoglobin 12.5 g/dl (14.0-18.0); Mean Corpuscular Hemoglobin 30.7 pg (25.0-34.0); Mean Corpuscular Hgb Conc 33.3 g/dL (32.0-36.0); Mean Corpuscular Volume 92.1 fL (80.0-100.0); Mean Platelet Volume 9.4 fL (9.4-12.4); Platelet Count 297 K/uL (130-400); RDW Coefficient of Variation 14.9 % (11.5-14.5); RDW Standard Deviation 49.8 fL (36.4-46.3); Red Blood Count 4.07 M/uL (4.70-6.10); White Blood Count 17.73 K/ul (4.8-10.8)
[2024-08-27 06:44] LABS: Albumin Globulin Ratio 1.6 (0.9-2); Albumin Level 3.4 gm/dl (3.4-5.0); BUN Creatinine Ratio 22.9 (10-20); Bilirubin,Total 0.6 mg/dl (0.2-1.0); Calcium 8.9 mg/dl (8.6-10.3); Globulin 2.1 gm/dl (2.5-4.0); Magnesium 1.9 mg/dl (1.7-2.4); Potassium 4.5 mmol/L (3.5-5.1); Total Protein 5.5 gm/dl (6.0-8.3)
[2024-08-27 07:18] LABS: Basophils # (auto) 0.03 K/uL (0.00-0.20); Basophils % (auto) 0.2 %; Immature Granulocytes # (auto) 0.53 K/uL (0.01-0.20); Lymphocytes # (auto) 0.34 K/uL (1.20-3.40); Lymphocytes % (auto) 1.9 %; Monocytes # (auto) 0.43 K/uL (0.11-0.59); Monocytes % (auto) 2.4 %; Neutrophils % (auto) 92.5 %
[2024-08-27] MEDS: METOPROLOL SUCC 50MG EXT REL TAB PO SCH (08:45)
[2024-08-27] MEDS: SPIRONOLACTONE 12.5 MG TAB PO SCH (08:48)
[2024-08-27] MEDS: VITAMIN B COMPLEX TAB PO SCH (08:48)
--- NOTE | 2024-08-27 10:41 | Hospitalist Progress Note ---
Date of Service August 27, 2024 Assessment & Plan (1) Acute respiratory failure with hypoxia and hypercapnia: (2) Chronic HFrEF (heart failure with reduced ejection fraction): (3) Acute exacerbation of chronic obstructive pulmonary disease: (4) Cardiac defibrillator in place: (5) Compression fracture of T5 vertebra: Plan 69-year-old male with past medical history of COPD, chronic systolic CHF with reduced ejection fraction of 25% with defibrillator who was recently discharged from [facility] on 08/10/2024 for COPD/CHF presents back to the hospital with shortness of breath and was found to be hypoxic and hypercapnic requiring BiPAP in ED #Acute hypoxic and hypercapnic respiratory failure #Acute exacerbation of chronic COPD # Leukocytosis Patient states 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 daily (day 2) Switch IV Solu-Medrol to prednisone 50 mg p.o. daily and will need a slow taper I suspect leukocytosis is from steroid use at this point rather than infection Continue O2 for comfort at present Will need 2 step evaluation for home O2 prior to discharge #Chronic systolic congestive heart failure with EF of 25% Patient has defibrillator in place He follows up with reception clerk at [facility] in [place] Toprol-XL increased from 25 mg p.o. daily to 50 mg p.o. daily Continue spironolactone at lower dose of 12.5 mg p.o. daily tomorrow Continue losartan 12.5 mg p.o. every hs Monitor vital signs I/O monitoring Daily weights #T5 compression fracture Diagnosed on previous admission Continue Tylenol as needed and Lidoderm PT consult #Cachexia CT of the chest from previous admission did not show any evidence of lung mass Continue mirtazapine 7.5 mg p.o. nightly Patient has declined EGD and colonoscopy in the past: Recommended follow-up with PCP to discuss this further If patient does not want EGD and colonoscopy outpatient through PCP, then recommend to consider CT abdomen pelvis with IV and p.o. contrast to evaluate for any evidence of malignancy given cachexia and this can be done through PCP as outpatient Outpatient follow-up with PCP for further investigations CODE STATUS: Full code DVT prophylaxis: Lovenox 40 mg subcutaneous daily Await PT recommendations regarding discharge disposition Care plan discussed with patient, nursing staff Admission and Anticipated Discharge Date Admission Date: August 25, 2024 Subjective Patient seen and examined Labs and radiology reviewed Patient reports feeling anxious He freaked out with a nebulizer treatment last night and feels getting a nebulizer through mask is what caused him to have a panic attack. Patient states mirtazapine has definitely helped improve his appetite: It took him a while to get the prescription from the [facility] and he only started his medication 4 days ago prior to coming to the hospital. He has a right inguinal hernia which is not painful Patient states he has never had an EGD or colonoscopy and does not want 1 because one of his friends had significant complications of perforation after colonoscopy He is open to trying low-dose Ativan to help with anxiety He is open to using the nebulizer through the mouthpiece rather than a mask He is currently on oxygen and feels oxygen is helping him breathe better Physical Exam Physical Exam: General: Mildly anxious, cachectic in appearance, talking in full sentences Psych: Awake and alert HEENT: Anicteric sclera, moist oral mucosa CVS: Tachycardic Lungs: Bilateral air entry, expiratory wheezing noted Abdomen: Soft, nontender, no rebound, no guarding, right inguinal hernia noted: Reducible, nontender Ext: No lower extremity edema, no calf tenderness Neuro: No focal motor deficits noted Results & Data Results & Data Vital Signs (Past 12 Hours) Vital Signs Temp Pulse Resp BP Pulse Ox O2 Del Method O2 Flow Rate 08/27/24 07:19 108 H 98 Nasal Cannula 1 08/27/24 07:00 36.7 C 107 H 17 116/77 99 Nasal Cannula 1 08/27/24 03:21 36.5 C 99 H 20 100/61 97 Nasal Cannula 1.0 Laboratory Results Laboratory Results - last 24 hr 08/27/24 05:51 WBC 17.73 H RBC 4.07 L Hgb 12.5 L Hct 37.5 L MCV 92.1 MCH 30.7 MCHC 33.3 RDW Std Deviation 49.8 H RDW Coeff of Renee 14.9 H Plt Count 297 MPV 9.4 Immature Gran % (Auto) 3.0 Neut % (Auto) 92.5 Lymph % (Auto) 1.9 [place] % (Auto) 2.4 Eos % (Auto) 0.0 Baso % (Auto) 0.2 Neut # (Auto) 16.40 H Lymph # (Auto) 0.34 L [place] # (Auto) 0.43 Eos # (Auto) 0.00 Baso # (Auto) 0.03 Immature Gran # (Auto) 0.53 H Sodium 139 Potassium 4.5 Chloride 104 Carbon Dioxide 32 Anion Gap 3 BUN 16 Creatinine 0.70 Est Cr Clr Drug Dosing 76.0 eGFR 99.12 BUN/Creatinine Ratio 22.9 H Glucose 114 H Calcium 8.9 Magnesium 1.9 Total Bilirubin 0.6 D AST 13 ALT 15 Alkaline Phosphatase 50 Total Protein 5.5 L Albumin 3.4 Globulin 2.1 L Albumin/Globulin Ratio 1.6 Vitamin B12 147 L TSH Pending Diagnostic Findings Chest X-Ray 08/26/24 10:35 XR chest 2V PA/lateral CLINICAL HISTORY: cough/SOB ?PNEUMONIA ?CHF TECHNIQUE: 2 views of the chest were obtained. Comparison: Comparison is made to chest radiograph 08/25/2024 FINDINGS: Pacemaker defibrillator is seen. Calcified aortic knob is seen. The lungs are clear apart from emphysema. Atelectasis is at the left lung base. No evidence of pleural effusion or pneumothorax. IMPRESSION: No acute abnormalities and in particular no radiographic evidence of pneumonia. ACT 112: Negative or not required by law. Electronically signed by: Akash Christianson M.D. 08/26/2024 11:21 AM PG Care Time/CCT Total # of Minutes Spent Total Time Spent with Patient: Total time spent is greater than 50% in coordination of care (as documented) at patient's floor/unit and/or counseling patient: Coding Level of Care Code 67118 SUB INP/OBS CARE 3/50MIN Diagnoses Acute respiratory failure with hypoxia and hypercapnia J96.01; J96.02 Chronic HFrEF (heart failure with reduced ejection fraction) I50.22 Acute exacerbation of chronic obstructive pulmonary disease J44.[address] Z95.810 Compression fracture of T5 vertebra S22.050A Encounter type: initial encounter (5) Compression fracture of T5 vertebra Encounter type: initial encounter Qualified Code(s): S22.050A - Wedge compression fracture of T5-T6 vertebra, initial encounter for closed fracture
[2024-08-27] MEDS: CYANOCOBALAMIN 1000 MCG/ML VIAL IM SCH (10:42)
[2024-08-27] MEDS: LORazepam 0.5 MG TAB PO STA (10:46)
[2024-08-27 11:19] LABS: Thyroid Stimulating Hormone 0.051 uIu/ml (0.300-4.500)
[2024-08-27 11:54] LABS: T4 Free Thyroxine 1.58 ng/dl (0.61-1.60)
[2024-08-27] MEDS: predniSONE 50 MG TAB PO STA (12:29)
[2024-08-27] MEDS: LEVALBUTEROL HCL 0.63 MG/3 ML NEB NEB SCH (14:26)
[2024-08-27] MEDS: LORazepam 0.5 MG TAB PO PRN (18:17)
[2024-08-27] MEDS: HYDROmorphone INJ 0.5 MG/0.5 ML SYR IV STA (20:02)
[2024-08-27] MEDS: MELATONIN 3 MG TAB PO PRN (20:02)
[2024-08-28] MEDS: predniSONE 50 MG TAB PO SCH (08:18)
--- NOTE | 2024-08-28 09:59 | Hospitalist Progress Note ---
Date of Service August 28, 2024 Assessment & Plan (1) Acute respiratory failure with hypoxia and hypercapnia: (2) Chronic HFrEF (heart failure with reduced ejection fraction): (3) Acute exacerbation of chronic obstructive pulmonary disease: (4) Cardiac defibrillator in place: (5) Compression fracture of T5 vertebra: (6) B12 deficiency: Plan 69-year-old male with past medical history of COPD, chronic systolic CHF with reduced ejection fraction of 25% with defibrillator who was recently discharged from [facility] on 08/10/2024 for COPD/CHF presents back to the hospital with shortness of breath and was found to be hypoxic and hypercapnic requiring BiPAP in ED #Acute hypoxic and hypercapnic respiratory failure #Acute exacerbation of chronic COPD # Leukocytosis Patient states 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 daily (day 3) Continue prednisone 50 mg p.o. 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 daily to 50 mg p.o. daily Continue spironolactone at lower dose of 12.5 mg p.o. daily Continue losartan 12.5 mg p.o. every hs Monitor vital signs I/O monitoring Daily weights #T5 compression fracture Diagnosed on previous admission Continue Tylenol as needed and Lidoderm PT consult #Cachexia CT of the chest from previous admission did not show any evidence of lung mass Continue mirtazapine 7.5 mg p.o. nightly Patient has declined EGD and colonoscopy in the past: Recommended follow-up with PCP to discuss this further If patient does not want EGD and colonoscopy outpatient through PCP, then recommend to consider CT abdomen pelvis with IV and p.o. contrast to evaluate for any evidence of malignancy given cachexia and this can be done through PCP as outpatient TSH is 0.05, free T4 is 1.58: Patient will need repeat TFTs in 4 weeks time through PCP as outpatient Outpatient follow-up with PCP for further investigations #Anxiety Patient states he has a history of panic attacks Psychiatry consult Continue Ativan as needed #Vit B12 deficiency: B12 is 147 Continue vitamin B12 supplementation CODE STATUS: Full code DVT prophylaxis: Lovenox 40 mg subcutaneous daily Await PT recommendations regarding discharge disposition Care plan discussed with patient, nursing staff Admission and Anticipated Discharge Date Admission Date: August 25, 2024 Subjective Patient seen and examined Telemetry reviewed: Showing sinus tachycardia Patient states he had a panic attack this morning and has been getting them at home as well He is open to the idea of speaking to a psychiatrist Denies chest pain, oxygen helps him to breathe Appetite has been good No labs done this morning: Labs ordered Physical Exam Physical Exam: General: Mildly anxious, cachectic in appearance, talking in full sentences Psych: Awake and alert HEENT: Anicteric sclera, moist oral mucosa CVS: Tachycardic Lungs: Bilateral air entry, no wheezing noted Abdomen: Soft, nontender, no rebound, no guarding, right inguinal hernia noted: Reducible, nontender Ext: No lower extremity edema, no calf tenderness Neuro: No focal motor deficits noted Results & Data Results & Data Vital Signs (Past 12 Hours) Vital Signs Temp Pulse Resp BP Pulse Ox O2 Del Method O2 Flow Rate 08/28/24 07:26 109 H 20 94 Nasal Cannula 2 08/28/24 07:21 36.5 C 101 H 18 115/74 98 Nasal Cannula 98 08/28/24 03:10 36.4 C L 66 16 92/61 L 90 Room Air 08/27/24 23:37 36.7 C 102 H 18 103/56 L 90 Room Air Laboratory Results Laboratory Results - last 24 hr 08/27/24 05:51 TSH 0.051 L Free T4 1.58 PG Care Time/CCT Total # of Minutes Spent Total Time Spent with Patient: Total time spent is greater than 50% in coordination of care (as documented) at patient's floor/unit and/or counseling patient: Coding Level of Care Code 29888 SUB INP/OBS CARE 2/35MIN Diagnoses Acute respiratory failure with hypoxia and hypercapnia J96.01; J96.02 Chronic HFrEF (heart failure with reduced ejection fraction) I50.22 Acute exacerbation of chronic obstructive pulmonary disease J44.1 [address] place Z95.810 Compression fracture of T5 vertebra S22.050A Encounter type: initial encounter B12 deficiency E53.8 (5) Compression fracture of T5 vertebra Encounter type: initial encounter Qualified Code(s): S22.050A - Wedge compression fracture of T5-T6 vertebra, initial encounter for closed fracture
[2024-08-28] MEDS: LEVALBUTEROL HCL 0.63 MG/3 ML NEB NEB SCH (10:20)
[2024-08-28 10:22] LABS: Hematocrit (blood only) 40.8 % (42.0-52.0); Mean Corpuscular Hgb Conc 31.9 g/dL (32.0-36.0); Mean Platelet Volume 9.5 fL (9.4-12.4); Platelet Count 309 K/uL (130-400); RDW Coefficient of Variation 15.1 % (11.5-14.5); Red Blood Count 4.34 M/uL (4.70-6.10); White Blood Count 16.29 K/ul (4.8-10.8)
[2024-08-28 10:27] LABS: Creatinine Clr Calc Pharmacy 67.7 ml/min; Magnesium 1.9 mg/dl (1.7-2.4); Potassium 4.2 mmol/L (3.5-5.1)
[2024-08-28 10:47] LABS: Basophils # (auto) 0.02 K/uL (0.00-0.20); Basophils % (auto) 0.1 %; Immature Granulocytes # (auto) 0.36 K/uL (0.01-0.20); Immature Granulocytes % (auto) 2.2 %; Lymphocytes # (auto) 0.46 K/uL (1.20-3.40); Lymphocytes % (auto) 2.8 %; Monocytes # (auto) 0.75 K/uL (0.11-0.59); Monocytes % (auto) 4.6 %; Neutrophils % (auto) 90.3 %
--- NOTE | 2024-08-28 11:30 | XRay Report ---
XR chest 2V PA/lateral CLINICAL HISTORY: Shortness of breath. COMPARISON STUDY: Chest CT August 07, 2024. Chest radiograph August 26, 2024. FINDINGS: A left subclavian pacer/AICD is in place. Cardiomediastinal silhouette is normal. There is no pneumothorax or pleural effusion. Severe emphysema is again noted. Lower lung densities favor atel ectasis. There is no consolidation to suggest pneumonia. IMPRESSION: 1. No consolidation to suggest pneumonia. Linear bibasilar densities favor atelectasis. 2. Emphysema. ACT 112: Negative or not required by law. Electronically signed by: Mc Frausto M.D. 08/28/2024 11:28 AM
--- NOTE | 2024-08-28 13:19 | Psychiatric Consultation ---
Date of Consultation August 28, 2024 Impression / Recommendations Impression 69-year-old male with past medical history of COPD, chronic systolic CHF with reduced ejection fraction of 25% with defibrillator who was recently discharged from [facility] on 08/10/2024 for COPD/CHF presents back to the hospital with shortness of breath and was found to be hypoxic and hypercapnic requiring BiPAP in ED. Current concerns of cachexia, steroid induced leukocytosis, anxiety. Psychiatry consulted for recommendations. Patient presents anxiety symptoms related to physical sensations of difficulty breathing. Has responded well to nightly mirtazapine with increased appetite. No past history of primary mood or anxiety disorder. Given regular frequency of anxiety symptoms and ongoing medical problems may benefit from scheduled lorazepam in the morning in addition to daily as needed doses. Concern night time doses of benzodiazepine may impact respiration during sleep. Possible current steroid treatment could be inciting anxiety symptoms, however less likely. Does not require outpatient psychiatrist at this time. Patient denies suicidal ideation and is able to contract for safety. Labs and vitals reviewed: Heart rate slightly elevated at 107, respiratory rate unremarkable, blood pressure within expected limits. Leukocytosis. BMP of 683. TSH of 0.05. Free T4 1.58. Overall, I spent a total of 60 minutes with this case including review of chart records, nursing report, review of lab work, direct evaluation of the patient at bedside, counseling the patient, discussion of the patient with the hospitalist provider, discussion with the psychiatric liaison during clinical rounds, and documentation in the electronic health record. (1) Anxiety disorder due to general medical condition with panic attack: (2) Cachexia: Plan -Continue Mirtazapine 7.5mg -Lorazepam 0.5mg QAM -Lorazepam 0.5mg BID PRN Psych History Chief Complaint anxiety History of Present Illness Patient reports his breathing and appetite are better. Says mirtazapine has been effective. Now eating past portions of his meals. Reports at times he is afraid that he cannot breathe and that he is trying to increasingly catch his breath. Reports recent episode where he was acting more frantic. Complains of anxious ruminations during this time. Reports lorazepam as needed is effective however episode of anxiety resolves by the time he gets the medication. Says that the mornings are worse and after doing breathing exercises. Reports sleeping well. Denies recent periods of low mood, changes in energy or concentration, anhedonia, increased guilt, sleep dysfunction, or poor self- esteem. 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 Denies past psychiatric history or family psychiatric history. Denies past psychiatric medication use. Denies history of panic attacks. denies SI and HI. Allergies Allergy/AdvReac Type Severity Reaction Status Date / Time fire ant Allergy Intermediate Swelling Verified 08/25/24 16:00 of Lip/Tongue/Throat lisinopril AdvReac Intermediate Cough Verified 08/25/24 16:00 Home Medications Medication Instructions Recorded Confirmed Type losartan 25 mg tablet 12.5 mg PO QPM 11/11/19 08/25/24 History albuterol sulfate 90 mcg/actuation 2 puff inhalation Q6H PRN 10/26/21 08/25/24 History aerosol inhaler Shortness Of Breath cholecalciferol (vitamin D3) 25 25 mcg PO QAM 06/03/22 08/25/24 History mcg (1,000 unit) capsule budesonide 160 mcg-glycopyr 9 2 inh inhalation BID 02/04/23 08/25/24 History mcg-formot 4.8 mcg/actuation HFA inhaler (Breztri Aerosphere) spironolactone 25 mg tablet 12.5 mg PO QAM 02/11/23 08/25/24 History metoprolol succinate 50 mg 25 mg PO QAM 04/13/24 08/25/24 History tablet,extended release 24 hr roflumilast 500 mcg tablet 0 mcg PO DAILY 04/13/24 08/25/24 History (Rivasiresp) melatonin 3 mg tablet 3 mg PO HS PRN sleep #0 tabs 08/10/24 08/25/24 Rx mirtazapine 15 mg tablet 7.5 mg (1/2 x 15 mg) PO HS #30 tabs 08/10/24 08/25/24 Rx calcium carbonate 200 mg PO BID PRN Calcium 08/25/24 08/25/24 History Supplementation carboxymethylcellulose sodium 1 % 1 drp ophthalmic (eye) DAILY PRN 08/25/24 08/25/24 History eye drops (Artificial Tears Dry Eye(S) (carboxymethylcellulose)) erythromycin 5 mg/gram (0.5 %) eye 1 applic OPR BID 08/25/24 08/25/24 History ointment fluticasone propionate 50 2 spray intranasal HS 08/25/24 08/25/24 History mcg/actuation nasal spray,suspension guaifenesin 600 mg tablet, 600 mg PO BID PRN Cough/Congestion 08/25/24 08/25/24 History extended release 12 hr (Mucinex) pantoprazole 40 mg tablet,delayed 40 mg PO BID 08/25/24 08/25/24 History release tamsulosin 0.4 mg capsule 0.4 mg PO HS 08/25/24 08/25/24 History Patient History Medical History (Updated 08/28/24 @ 13:19 by Byron Gibson MD) Hx of cardiomyopathy T8 vertebral fracture healed on own > does get pain to area occasionally Kidney stones passed on own Low blood pressure happens on occasion History of COVID-19 Apr 22, 2022 > tested at [facility] in [place] > sore throat, chills, loss of taste and smell, no appetite > taste is just now coming back Emphysema of lung Surgical History History of cardiac cath 2003 > no stents Hx of vasectomy Hx of inguinal hernia repair History of tooth extraction Family History Other Family history non-contributory Social History Smoking Status: Former smoker Tobacco Type: Cigarettes packs per day: 2; Cigarettes Per Day: 20; Second Hand Exposure: Yes; Do You Dip or Chew Tobacco: No; Hx Alcohol Use: No Hx Substance Use: No Preferred Language: Iranian Communication Ability: Effective Sap Basis Architect Required: No Beliefs That Will Affect Care: None marital status: Current Living Situation: Family Current Living Situation Comment: Cousin lives with him current occupational status: retired Other Information That Helps Us Care for You: No Feels Safe at Home: Yes Safety Concerns: Feels Safe At This Time Assistive Devices: None Physical Exam Mental Examination: Appearance: Disheveled Eye Contact: Maintains Eye Contact Motor Behavior: Unremarkable Speech: Normal Mood: Euthymic and Calm Affect: Appropriate and Constricted Thought Process: Intact and Linear Thought Content: Intact Hallucinations: None Insight: Fair Judgement: Fair Vital Signs (Past 24 Hours): Last Vital Signs Temp 36.6 C 08/28/24 11:15 Pulse 107 H 08/28/24 11:15 Resp 18 08/28/24 11:15 BP 121/74 08/28/24 11:15 Pulse Ox 93 08/28/24 11:15 O2 Del Method Room Air 08/28/24 11:15 O2 Flow Rate 1 08/28/24 11:05 FiO2 21 08/27/24 14:27 Results & Data (PSY) Medications Administered Acetaminophen (Acetaminophen 500 Mg Tab) 1,000 mg PO Q6H PRN PRN Reason: Pain Stop: 09/24/24 17:59 Last Admin: 08/28/24 08:19 Dose: 1,000 mg Documented By: Admin: 08/27/24 15:19 Dose: 1,000 mg Documented By: Admin: 08/27/24 08:42 Dose: 1,000 mg Documented By: Admin: 08/26/24 23:04 Dose: 1,000 mg Documented By: Admin: 08/26/24 15:57 Dose: 1,000 mg Documented By: EP Azithromycin (Azithromycin 250 Mg Tab) 500 mg PO Q24H [facility] Stop: 08/28/24 20:59 Last Admin: 08/27/24 20:35 Dose: 500 mg Documented By: Admin: 08/26/24 21:37 Dose: 500 mg Documented By: Admin: 08/25/24 21:30 Dose: 500 mg Documented By: SHANKAR Budesonide (Budesonide 0.5 Mg/2 Ml Vial (Pulmicort)) 0.5 mg NEB BIDR [facility] Stop: 09/24/24 18:59 Last Admin: 08/28/24 07:25 Dose: 0.5 mg Documented By: Admin: 08/27/24 20:16 Dose: 0.5 mg Documented By: Admin: 08/27/24 07:16 Dose: 0.5 mg Documented By: [id number] Admin: 08/26/24 19:31 Dose: 0.5 mg Documented By: Admin: 08/26/24 07:13 Dose: 0.5 mg Documented By: EALisa Admin: 08/25/24 19:42 Dose: 0.5 mg Documented By: TMP Cyanocobalamin (Cyanocobalamin 1000 Mcg/Ml Vial) 1,000 mcg IM QAM [facility] Stop: 08/30/24 08:59 Last Admin: 08/28/24 08:19 Dose: 1,000 mcg Documented By: Admin: 08/27/24 10:42 Dose: 1,000 mcg Documented By: EP Enoxaparin Sodium (Enoxaparin Inj 40 Mg/0.4 Ml Syr) 40 mg SQ QPM [facility] Stop: 09/24/24 20:59 Last Admin: 08/27/24 20:03 Dose: 40 mg Documented By: Admin: 08/26/24 21:42 Dose: 40 mg Documented By: Admin: 08/25/24 21:29 Dose: 40 mg Documented By: SHANKAR Erythromycin (Erythromycin Op Oint 5 Mg/Gm 3.5 Gm Tube) 1 appln OPR BID [facility] Stop: 09/04/24 20:59 Last Admin: 08/28/24 08:20 Dose: Not Given Documented By: Admin: 08/27/24 20:06 Dose: 1 appln Documented By: Admin: 08/27/24 08:45 Dose: Not Given Documented By: Admin: 08/26/24 21:41 Dose: 1 appln Documented By: Admin: 08/26/24 08:03 Dose: Not Given Documented By: Admin: 08/25/24 20:32 Dose: 1 appln Documented By: SHANKAR Fluticasone Propionate (Fluticasone Propionate Na Spr 16 Gm Btl) 2 sprays JONNY HS [facility] Stop: 09/24/24 20:59 Last Admin: 08/27/24 20:04 Dose: 2 sprays Documented By: Admin: 08/26/24 21:40 Dose: 2 sprays Documented By: Admin: 08/25/24 20:31 Dose: 2 sprays Documented By: SHANKAR Formoterol Fumarate (Formoterol 20 Mcg/2 Ml Vial) 20 mcg NEB BIDR [facility] Stop: 09/24/24 18:59 Last Admin: 08/28/24 07:25 Dose: 20 mcg Documented By: Admin: 08/27/24 20:16 Dose: 20 mcg Documented By: Admin: 08/27/24 07:16 Dose: 20 mcg Documented By: [id number] Admin: 08/26/24 19:31 Dose: 20 mcg Documented By: Admin: 08/26/24 07:12 Dose: 20 mcg Documented By: Admin: 08/25/24 19:42 Dose: 20 mcg Documented By: SHARMIN Guaifenesin (Guaifenesin 600 Mg Tabcr) 600 mg PO Q12 [facility] Stop: 09/24/24 20:59 Last Admin: 08/28/24 08:16 Dose: 600 mg Documented By: Admin: 08/27/24 20:04 Dose: 600 mg Documented By: Admin: 08/27/24 10:42 Dose: 600 mg Documented By: Admin: 08/26/24 21:39 Dose: 600 mg Documented By: Admin: 08/26/24 08:03 Dose: 600 mg Documented By: Admin: 08/25/24 20:31 Dose: 600 mg Documented By: SHANKAR Levalbuterol HCl (Levalbuterol Hcl 0.63 Mg/3 Ml Neb) 0.63 mg NEB Q6R [facility]; Protocol Stop: 09/27/24 09:59 Last Admin: 08/28/24 10:20 Dose: 0.63 mg Documented By: LEANA Lidocaine (Lidocaine 5% 1 Patch) 1 patch TD QAM [facility] Stop: 09/24/24 18:59 Last Admin: 08/28/24 08:20 Dose: 1 patch Documented By: Admin: 08/27/24 10:41 Dose: 1 patch Documented By: Admin: 08/26/24 08:02 Dose: 1 patch Documented By: Admin: 08/25/24 20:29 Dose: 1 patch Documented By: SHANKAR Lorazepam (Lorazepam 0.5 Mg Tab) 0.5 mg PO TID PRN PRN Reason: Anxiety Stop: 09/26/24 10:39 Last Admin: 08/28/24 07:46 Dose: 0.5 mg Documented By: Admin: 08/27/24 18:17 Dose: 0.5 mg Documented By: TAMIA Losartan Potassium (Losartan Potassium 25 Mg Tab) 12.5 mg PO HS [facility] Stop: 09/25/24 20:59 Last Admin: 08/27/24 20:04 Dose: 12.5 mg Documented By: Admin: 08/26/24 21:35 Dose: 12.5 mg Documented By: JOANA Melatonin (Melatonin 3 Mg Tab) 3 mg PO HS PRN PRN Reason: sleep Stop: 09/24/24 17:59 Last Admin: 08/27/24 20:02 Dose: 3 mg Documented By: CRISTIAN Metoprolol Succinate (Metoprolol Succ 50mg Ext Rel Tab) 50 mg PO QAM [facility] Stop: 09/26/24 08:59 Last Admin: 08/28/24 08:17 Dose: 50 mg Documented By: Admin: 08/27/24 08:45 Dose: 50 mg Documented By: TAMIA Mirtazapine (Mirtazapine Tab 15 Mg Tab) 7.5 mg PO HS [facility] Stop: 09/24/24 20:59 Last Admin: 08/27/24 20:05 Dose: 7.5 mg Documented By: Admin: 08/26/24 21:37 Dose: 7.5 mg Documented By: Admin: 08/25/24 20:33 Dose: 7.5 mg Documented By: SHANKAR Miscellaneous (Remove Lidoderm Patch) 1 each N/A DAILY@2100 [facility] Stop: 09/24/24 20:59 Last Admin: 08/27/24 20:05 Dose: 1 each Documented By: Admin: 08/26/24 21:42 Dose: 1 each Documented By: Admin: 08/25/24 20:33 Dose: Not Given Documented By: SHANKAR Pantoprazole Sodium (Pantoprazole 40 Mg Tab) 40 mg PO BID [facility] Stop: 09/24/24 20:59 Last Admin: 08/28/24 08:17 Dose: 40 mg Documented By: Admin: 08/27/24 20:05 Dose: 40 mg Documented By: Admin: 08/27/24 08:44 Dose: 40 mg Documented By: Admin: 08/26/24 21:37 Dose: 40 mg Documented By: Admin: 08/26/24 08:04 Dose: 40 mg Documented By: Admin: 08/25/24 20:30 Dose: 40 mg Documented By: SHANKAR Prednisone (Prednisone 50 Mg Tab) 50 mg PO DAILY [facility] Stop: 09/27/24 08:59 Last Admin: 08/28/24 08:18 Dose: 50 mg Documented By: TAMIA Roflumilast (Roflumilast 500 Mcg Tab) 500 mcg PO DAILY [facility] Stop: 09/25/24 08:59 Last Admin: 08/28/24 08:16 Dose: 500 mcg Documented By: Admin: 08/27/24 08:45 Dose: 500 mcg Documented By: Admin: 08/26/24 08:05 Dose: 500 mcg Documented By: EP Spironolactone (Spironolactone 12.5 Mg Tab) 12.5 mg PO DAILY [facility] Stop: 09/26/24 08:59 Last Admin: 08/28/24 08:17 Dose: 12.5 mg Documented By: Admin: 08/27/24 08:48 Dose: 12.5 mg Documented By: EP Tamsulosin HCl (Tamsulosin Hcl 0.4 Mg Cap) 0.4 mg PO HS [facility] Stop: 09/24/24 20:59 Last Admin: 08/27/24 20:04 Dose: 0.4 mg Documented By: Admin: 08/26/24 21:36 Dose: 0.4 mg Documented By: Admin: 08/25/24 20:34 Dose: 0.4 mg Documented By: SHANKAR Vitamin B Complex (Vitamin B Complex Tab) 1 tab PO QAM [facility] Stop: 09/26/24 08:59 Last Admin: 08/28/24 08:21 Dose: 1 tab Documented By: Admin: 08/27/24 08:48 Dose: 1 tab Documented By: EP [place] [address] IN/OBS CONSULT LVL 4,60M Patient Type New History Detailed Exam Detailed Medical Decision Making Moderate Complexity Diagnoses Anxiety disorder due to general medical condition with panic attack F06.4; F41.0 Cachexia R64
[2024-08-28] MEDS: LORazepam 0.5 MG TAB PO PRN (18:27)
[2024-08-28] MEDS: MAGNESIUM OXIDE 400 MG TAB PO SCH (21:19)
[2024-08-28] MEDS: MAGNESIUM SULFATE / D5W 1 GM/100 ML BAG IV ONE (23:09)
[2024-08-29 04:43] LABS: Calcium 8.9 mg/dl (8.6-10.3); Creatinine Clr Calc Pharmacy 87.3 ml/min; Magnesium 2.1 mg/dl (1.7-2.4); Potassium 4.3 mmol/L (3.5-5.1)
[2024-08-29] MEDS: LORazepam 0.5 MG TAB PO SCH (06:17)
[2024-08-29 07:24] LABS: Estimated Average Glucose 108 mg/dl; Hemoglobin A1C 5.4 % (4.5-5.6)
--- NOTE | 2024-08-29 09:29 | Hospitalist Progress Note ---
Date of Service August 29, 2024 Assessment & Plan (1) Acute respiratory failure with hypoxia and hypercapnia: (2) Chronic HFrEF (heart failure with reduced ejection fraction): (3) Acute exacerbation of chronic obstructive pulmonary disease: (4) Cardiac defibrillator in place: (5) Compression fracture of T5 vertebra: (6) B12 deficiency: Plan 69-year-old male with past medical history of COPD, chronic systolic CHF with reduced ejection fraction of 25% with defibrillator who was recently discharged from [facility] on 08/10/2024 for COPD/CHF presents back to the hospital with shortness of breath and was found to be hypoxic and hypercapnic requiring BiPAP in ED #Acute hypoxic and hypercapnic respiratory failure #Acute exacerbation of chronic COPD # Leukocytosis Patient states he follows up with radio division officer at [facility] in [place] Bio fire is negative Pro-Nolan is less than 0.02 Chest x-ray from 08/26/2024: 2 view chest x-ray reviewed does not show any evidence of pneumonia or pulmonary edema Continue Brovana and budesonide nebs Xopenex nebs scheduled 3 times daily and as needed Azithromycin 500 mg p.o. daily (day 3) Continue prednisone 50 mg p.o. daily with slow taper I suspect leukocytosis is from steroid use at this point rather than infection Continue O2 for comfort at present Will need 2 step evaluation for home O2 prior to discharge Check two-view chest x-ray today #Chronic systolic congestive heart failure with EF of 25% Patient has defibrillator in place He follows up with poured concrete wall technician at [facility] Continue Toprol-XL 50 mg p.o. daily Continue spironolactone at lower dose of 12.5 mg p.o. daily Continue losartan 12.5 mg p.o. every hs Monitor vital signs I/O monitoring Daily weights #T5 compression fracture Diagnosed on previous admission Continue Tylenol as needed and Lidoderm #Cachexia CT of the chest from previous admission did not show any evidence of lung mass Continue mirtazapine 7.5 mg p.o. nightly Patient has declined EGD and colonoscopy in the past: Recommended follow-up with PCP to discuss this further If patient does not want EGD and colonoscopy outpatient through PCP, then recommend to consider CT abdomen pelvis with IV and p.o. contrast to evaluate for any evidence of malignancy given cachexia and this can be done through PCP as outpatient TSH is 0.05, free T4 is 1.58: Patient will need repeat TFTs in 4 weeks time through PCP as outpatient Outpatient follow-up with PCP for further investigations #Anxiety Patient states he has a history of panic attacks Psychiatry consult Continue Ativan as needed #Vit B12 deficiency: B12 is 147 Continue vitamin B12 supplementation #Right inguinal hernia Reducible Outpatient follow with PCP for referral to surgery as outpatient CODE STATUS: Full code DVT prophylaxis: Lovenox 40 mg subcutaneous daily Discharge planning Home likely tomorrow based on clinical improvement and two- step evaluation Care plan discussed with patient, nursing staff Admission and Anticipated Discharge Date Admission Date: August 25, 2024 Subjective Patient seen and examined Reports feeling better today with improvement in anxiety Denies any chest pain, shortness of breath has improved Awaiting two-step evaluation today Tolerating oral diet without any nausea vomiting or abdominal pain Physical Exam Physical Exam: General: Mildly anxious, cachectic in appearance, talking in full sentences Psych: Awake and alert HEENT: Anicteric sclera, moist oral mucosa CVS: Regular rate and rhythm Lungs: Bilateral air entry, no wheezing noted Abdomen: Soft, nontender, no rebound, no guarding Ext: No lower extremity edema, no calf tenderness Neuro: No focal motor deficits noted Results & Data Results & Data Vital Signs (Past 12 Hours) Vital Signs Temp Pulse Pulse Resp BP Pulse Ox Pulse Ox 08/29/24 08:40 96 08/29/24 08:40 08/29/24 07:47 85 08/29/24 07:11 36.3 C L 82 18 117/80 97 08/29/24 06:08 95 H 18 98 08/29/24 03:21 36.4 C L 92 H 16 105/71 99 08/28/24 23:21 36.5 C 90 16 111/73 97 08/28/24 23:12 91 H 08/28/24 22:39 93 08/28/24 22:39 O2 Del Method O2 Del Method O2 Flow Rate O2 Flow Rate 08/29/24 08:40 Nasal Cannula 1 08/29/24 08:40 Nasal Cannula 1 08/29/24 07:47 08/29/24 07:11 Nasal Cannula 1 08/29/24 06:08 Nasal Cannula 2 08/29/24 03:21 Nasal Cannula 08/28/24 23:21 Nasal Cannula 08/28/24 23:12 08/28/24 22:39 Nasal Cannula 1 08/28/24 22:39 Nasal Cannula 1 Laboratory Results Laboratory Results - last 24 hr 08/28/24 08/29/24 09:43 03:49 WBC 16.29 H RBC 4.34 L Hgb 13.0 L Hct 40.8 L MCV 94.0 MCH 30.0 MCHC 31.9 L RDW Std Deviation 52.0 H RDW Coeff of Renee 15.1 H Plt Count 309 MPV 9.5 Immature Gran % (Auto) 2.2 Neut % (Auto) 90.3 Lymph % (Auto) 2.8 [place] % (Auto) 4.6 Eos % (Auto) 0.0 Baso % (Auto) 0.1 Neut # (Auto) 14.70 H Lymph # (Auto) 0.46 L [place] # (Auto) 0.75 H Eos # (Auto) 0.00 Baso # (Auto) 0.02 Immature Gran # (Auto) 0.36 H Sodium 140 139 Potassium 4.2 4.3 Chloride 103 102 Carbon Dioxide 34 H 33 H Anion Gap 3 4 BUN 20 18 Creatinine 0.80 0.62 Est Cr Clr Drug Dosing 67.7 87.3 eGFR 95.21 102.83 BUN/Creatinine Ratio 25.0 H 29.0 H Glucose 106 H 101 H Estimat Average Glucose 108 Hemoglobin A1c 5.4 Calcium 9.0 8.9 Magnesium 1.9 2.1 B-Natriuretic Peptide 683 H Diagnostic Findings Chest X-Ray 08/28/24 10:00 XR chest 2V PA/lateral CLINICAL HISTORY: Shortness of breath. COMPARISON STUDY: Chest CT August 07, 2024. Chest radiograph August 26, 2024. FINDINGS: A left subclavian pacer/AICD is in place. Cardiomediastinal silhouette is normal. There is no pneumothorax or pleural effusion. Severe emphysema is again noted. Lower lung densities favor atelectasis. There is no consolidation to suggest pneumonia. IMPRESSION: 1. No consolidation to suggest pneumonia. Linear bibasilar densities favor atelectasis. 2. Emphysema. ACT 112: Negative or not required by law. Electronically signed by: Mc Frausto M.D. 08/28/2024 11:28 AM PG Care Time/CCT Total # of Minutes Spent Total Time Spent with Patient: Total time spent is greater than 50% in coordination of care (as documented) at patient's floor/unit and/or counseling patient: Coding Level of Care Code 24112 SUB INP/OBS CARE MIN Diagnoses Acute respiratory failure with hypoxia and hypercapnia J96.01; J96.02 Chronic HFrEF (heart failure with reduced ejection fraction) I50.22 Acute exacerbation of chronic obstructive pulmonary disease J44.[address] Z95.810 Compression fracture of T5 vertebra S22.050A Encounter type: initial encounter B12 deficiency E53.8 (5) Compression fracture of T5 vertebra Encounter type: initial encounter Qualified Code(s): S22.050A - Wedge compression fracture of T5-T6 vertebra, initial encounter for closed fracture
[2024-08-30] MEDS: IBUPROFEN 200 MG TAB PO PRN (01:28)
--- NOTE | 2024-08-30 10:08 | Hospitalist Progress Note ---
Date of Service August 30, 2024 Assessment & Plan (1) Acute respiratory failure with hypoxia and hypercapnia: (2) Chronic HFrEF (heart failure with reduced ejection fraction): (3) Acute exacerbation of chronic obstructive pulmonary disease: (4) Cardiac defibrillator in place: (5) Compression fracture of T5 vertebra: (6) B12 deficiency: Plan 69-year-old male with past medical history of COPD, chronic systolic CHF with reduced ejection fraction of 25% with defibrillator who was recently discharged from [facility] on 08/10/2024 for COPD/CHF presents back to the hospital with shortness of breath and was found to be hypoxic and hypercapnic requiring BiPAP in ED #Acute hypoxic and hypercapnic respiratory failure #Acute exacerbation of chronic COPD # Leukocytosis Patient states he follows up with colors custodian at [place] in [place] [employer] fire is negative Pro-Nolan is less than 0.02 Chest x-ray from 08/26/2024: 2 view chest x-ray reviewed does not show any evidence of pneumonia or pulmonary edema Chest x-ray from 08/28/2024 showed no consolidation to suggest pneumonia, showed emphysema. Continue Brovana and budesonide nebs Xopenex nebs scheduled 3 times daily and as needed Patient has finished 3 days of azithromycin 500 mg p.o. daily Continue prednisone 50 mg p.o. daily with slow taper I suspect leukocytosis is from steroid use at this point rather than infection Continue O2 for comfort at present Will need 2 step evaluation for home O2 prior to discharge #Chronic systolic congestive heart failure with EF of 25% Patient has defibrillator in place He follows up with student accounts coordinator at [facility] Continue Toprol-XL 50 mg p.o. twice daily Continue spironolactone at lower dose of 12.5 mg p.o. daily Continue losartan 12.5 mg p.o. every hs Avoid NSAIDs Monitor vital signs I/O monitoring Daily weights #T5 compression fracture Diagnosed on previous admission Continue Tylenol as needed and Lidoderm #Cachexia CT of the chest from previous admission did not show any evidence of lung mass Continue mirtazapine 7.5 mg p.o. nightly Patient has declined EGD and colonoscopy in the past: Recommended follow-up with PCP to discuss this further If patient does not want EGD and colonoscopy outpatient through PCP, then recommend to consider CT abdomen pelvis with IV and p.o. contrast to evaluate for any evidence of malignancy given cachexia and this can be done through PCP as outpatient TSH is 0.05, free T4 is 1.58: Patient will need repeat TFTs in 4 weeks time through PCP as outpatient Outpatient follow-up with PCP for further investigations #Anxiety Patient states he has a history of panic attacks Psychiatry saw the patient recommended Ativan in the morning and as needed while in the hospital Continue mirtazapine #Vit B12 deficiency: B12 is 147 Continue vitamin B12 supplementation #Right inguinal hernia Reducible Outpatient follow with PCP for referral to surgery as outpatient CODE STATUS: Full code DVT prophylaxis: Lovenox 40 mg subcutaneous daily Discharge planning Home likely tomorrow based on clinical improvement and two- step evaluation Care plan discussed with patient, nursing staff Admission and Anticipated Discharge Date Admission Date: August 25, 2024 Subjective Patient seen and examined Reports improvement in his anxiety Feels much better today: Today the first day is actually feeling himself and able to breathe without any issues Ambulating, appetite is good He has a walker at his bedside He denies any fever, chills, nausea, vomiting or abdominal pain Physical Exam Physical Exam: General: Mildly anxious, cachectic in appearance, talking in full sentences Psych: Awake and alert HEENT: Anicteric sclera, moist oral mucosa CVS: Regular rate and rhythm Lungs: Bilateral air entry, no wheezing noted Abdomen: Soft, nontender, no rebound, no guarding Ext: No lower extremity edema, no calf tenderness Neuro: No focal motor deficits noted Results & Data Results & Data Vital Signs (Past 12 Hours) Vital Signs Temp Pulse Resp BP Pulse Ox O2 Del Method 08/30/24 08:05 36.5 C 61 18 133/85 92 Room Air 08/30/24 07:41 92 H 20 93 Room Air 08/30/24 01:34 93 H 89 L Room Air PG Care Time/CCT Total # of Minutes Spent Total Time Spent with Patient: Total time spent is greater than 50% in coordination of care (as documented) at patient's floor/unit and/or counseling patient: Coding Level of Care Code 43319 SUB INP/OBS CARE 2/35MIN Diagnoses Acute respiratory failure with hypoxia and hypercapnia J96.01; J96.02 Chronic HFrEF (heart failure with reduced ejection fraction) I50.22 Acute exacerbation of chronic obstructive pulmonary disease J44.[address] Z95.810 Compression fracture of T5 vertebra S22.050A Encounter type: initial encounter B12 deficiency E53.8 (5) Compression fracture of T5 vertebra Encounter type: initial encounter Qualified Code(s): S22.050A - Wedge compression fracture of T5-T6 vertebra, initial encounter for closed fracture
[2024-08-31] MEDS: KETOROLAC TROMETHAMINE 15 MG/ML VIAL IV ONE (01:39)
[2024-08-31 07:18] VITALS: TEMP 97.7
[2024-08-31] MEDS: predniSONE 20 MG TAB PO SCH (07:33)
--- NOTE | 2024-08-31 09:58 | Discharge Summary ---
Discharge Summary Date of Service August 31, 2024 Principal Dx & Hospital Course #1 = Principal Diagnosis (1) Acute respiratory failure with hypoxia and hypercapnia: (2) Chronic HFrEF (heart failure with reduced ejection fraction): (3) Acute exacerbation of chronic obstructive pulmonary disease: (4) Cardiac defibrillator in place: (5) Compression fracture of T5 vertebra: (6) B12 deficiency: Plan 69-year-old male with past medical history of COPD, chronic systolic CHF with reduced ejection fraction of 25% with defibrillator who was recently discharged from [facility] on 08/10/2024 for COPD/CHF presents back to the hospital with shortness of breath and was found to be hypoxic and hypercapnic requiring BiPAP in ED #Acute hypoxic and hypercapnic respiratory failure #Acute exacerbation of chronic COPD # Leukocytosis Patient states he follows up with college or university faculty member at [facility] in [place] [employer] fire is negative Pro-Nolan is less than 0.02 Chest x-ray from 08/26/2024: 2 view chest x-ray reviewed does not show any evidence of pneumonia or pulmonary edema Chest x-ray from 08/28/2024 showed no consolidation to suggest pneumonia, showed emphysema. Continue Brovana and budesonide nebs Xopenex nebs scheduled 3 times daily and as needed Patient has finished 3 days of azithromycin 500 mg p.o. daily Continue prednisone with taper I suspect leukocytosis is from steroid use at this point rather than infection Patient had two-step evaluation done and does not qualify for home oxygen He will follow-up with PCP to repeat his CBC in 1 to 2 weeks time I have also asked him to follow-up with his PCP and college or university faculty member as outpatient #Chronic systolic congestive heart failure with EF of 25% Patient has defibrillator in place He follows up with church organist at [facility] Continue Toprol-XL 50 mg p.o. daily Continue spironolactone 12.5 mg p.o. daily Continue losartan 12.5 mg p.o. every hs Avoid NSAIDs Outpatient follow-up with cardiology on discharge #T5 compression fracture Diagnosed on previous admission Continue Tylenol as needed #Cachexia CT of the chest from previous admission did not show any evidence of lung mass Continue mirtazapine 7.5 mg p.o. nightly Patient has declined EGD and colonoscopy in the past: Recommended follow-up with PCP to discuss this further If patient does not want EGD and colonoscopy outpatient through PCP, then recommend to consider CT abdomen pelvis with IV and p.o. contrast to evaluate for any evidence of malignancy given cachexia and this can be done through PCP as outpatient Outpatient follow-up with PCP for further investigation #Anxiety Patient states he has a history of panic attacks Psychiatry saw the patient recommended Ativan in the morning Discussed long-term benzodiazepine use: Risk of dependence, tolerance: Patient verbalized understanding risk. I have given a short prescription of 0.5 mg Ati van x 7 days as needed I recommend the patient follow-up with his PCP for referral to psychiatry as outpatient Continue mirtazapine #Vit B12 deficiency: B12 is 147 Continue vitamin B12 supplementation with B complex as outpatient #Right inguinal hernia Reducible Outpatient follow with PCP for referral to surgery as outpatient Patient seen and examined. He endorses feeling much better today with improvement in shortness of breath. Denies chest pain. Ambulating with a walker. He is stable for discharge home. I gone over the discharge care plan, medications and outpatient follow-up with patient in great detail and answered all his questions. This discharge to greater than 30 minutes to coordinate Admission HPI Per Admitting Provider Sonu Jerome is a 69 year old male with COPD who presents to the ER with shortness of breath and increased productive cough for the last 2 days as he has come off prednisone. He was recently admitted for COPD exacerbation at the end of July and reports doing well initially until 2 days ago. He reports being much improved since steroids, nebulizers and BiPAP started in the ER. He feels this is similar to his prior episode in July. He reports compliance with his inhalers at home. Also having some left sided chest pain on deep inspiration and palpation, currently chest pain free at rest. 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 Discharge Diagnosis: #Acute exacerbation of chronic COPD # Leukocytosis #Chronic systolic congestive heart failure with EF of 25% #T5 compression fracture #Cachexia #Anxiety #Vit B12 deficiency: #Right inguinal hernia Activity: As commented below Activity Comment: As tolerated with assistance with walker Non-emergency contact: Primary Care Provider Call non-emergency contact if: you have any medication questions, your symptoms worsen, your pain is not controlled and you have a fever Follow-up/Referrals: [facility] [Primary Care Provider] - Diet: Regular and Other - See Diet Comment Diet Comment: Low-salt diet Addtl Attending Provider Instructions: DISCHARGE INSTRUCTION TO PATIENT/FAMILY: Follow-up with your primary care provider within 1 week regarding: Posthospital discharge, medication review, medication refills and follow-up on all your medical problems, LABS, Referral to outpatient Psychiatry, Discussion of outpatient CT Abdo/Pelvis vs EGD/Colonoscopy Please take all your discharge medications, discharge information and discharge instructions to all your doctors appointments. Avoid all NSAIDs including ibuprofen, Motrin, Advil, Aleve, naproxen, meloxicam, Toradol, diclofenac Please follow-up with your outpatient church organist at the [facility] in [place] regarding congestive heart failure in 1 to 2 weeks time Please follow-up with your outpatient college or university faculty member at the [facility] in [place] regarding COPD in 1 to 2 weeks time Please follow-up with your outpatient primary care provider through the [facility] regarding scheduling outpatient EGD/colonoscopy versus CT abdomen and pelvis to look for malignancy given the fact that you have lost a lot of weight unintentionally. You were seen by psychiatrist inpatient during hospital stay. You will benefit from an outpatient psychiatry referral through your PCP to address anxiety/PTSD PREDNISONE TAPER: see taper instructions: STARTING 09/01/12 TAKE 4 TABLETS (40 MG) DAILY FOR 3 DAYS, THEN 3 TABLETS (30 MG) DAILY FOR 3 DAYS, THEN 2 TABLETS (20 MG) DAILY FOR 3 DAYS, THEN 1 TABLET DAILY (10 MG) FOR 3 DAYS, THEN STOP. TAKE WITH FOOD Labs through PCP in 1 to 2 weeks: CBC, CMP, MG, VITAMIN D Pending Studies at Discharge: No Stand-Alone Forms: My [employer], Smoking Cessation Medications and DC Order Prescriptions: New metoprolol succinate 50 mg Tablet Extended Release 24 Hr 50 mg PO QAM Qty: 30 0RF vitamin B complex [Vitamins B Complex] Capsule 1 cap PO QAM Qty: 30 0RF prednisone 10 mg tablet 10 mg PO DIRECTED Qty: 30 0RF Rx Instructions: see taper instructions: STARTING 09/01/12 TAKE 4 TABLETS DAILY FOR 3 DAYS, THEN 3 TABLETS DAILY FOR 3 DAYS, THEN 2 TABLETS DAILY FOR 3 DAYS, THEN 1 TABLET DAILY FOR 3 DAYS, THEN STOP. TAKE WITH FOOD lorazepam 0.5 mg Tablet 0.5 mg PO DAILY PRN (Reason: anxiety) Qty: 7 0RF Continued cholecalciferol (vitamin D3) 25 mcg (1,000 unit) capsule 25 mcg PO QAM Breztri Aerosphere 160-9-4.8 mcg/actuation HFA aerosol inhaler 2 inh inhalation BID roflumilast [Daliresp] 500 mcg tablet 0 mcg PO DAILY Rx Instructions: Last filled 07/02/24 x30 day supply. Original Directions: 500mg by mouth daily spironolactone 25 mg tablet 12.5 mg PO QAM losartan 25 mg Tablet 12.5 mg PO QPM albuterol sulfate 90 mcg/actuation Hfa Aerosol Inhaler 2 puff INHALATION Q6H PRN (Reason: Shortness Of Breath) mirtazapine 15 mg Tablet 7.5 mg PO HS Qty: 30 0RF melatonin 3 mg Tablet 3 mg PO HS PRN (Reason: sleep) Qty: 0 0RF Rx Instructions: Unable to verify OTC meds at this date/time. tamsulosin 0.4 mg Capsule 0.4 mg PO HS pantoprazole 40 mg Tablet,Delayed Release (Dr/Ec) 40 mg PO BID erythromycin 5 mg/gram (0.5 %) Ointment 1 applic OPR BID calcium carbonate 200 mg calcium (500 mg) Tablet,Chewable 200 mg PO BID PRN (Reason: Calcium Supplementation) fluticasone propionate 50 mcg/actuation [place],Suspension 2 spray INTRANASAL HS Rx Instructions: administer into each nostril guaifenesin [Mucinex] 600 mg Tablet Extended Release 12hr 600 mg PO BID PRN (Reason: Cough/Congestion) Artificial Tears (cmc) 1 % Drops 1 drp OPHTHALMIC (EYE) DAILY PRN (Reason: Dry Eye(S)) Discontinued metoprolol succinate 50 mg tablet extended release 24 hr 25 mg PO QAM Discharge Orders: Discharge Order- CHF (Routine); Ordered 08/31/24 Ordered By: Valeriano Spencer Admission Data Admit Date/Time: 08/25/24 16:41 Attending Provider: Valeriano Spencer Admit Provider: Ryland Wyman Primary Care Provider: [facility] Other Providers: Ryland Wyman; Zoey Perez; Mj Louie; Tory Gray; Jenniffer García; Byron Gibson; Carmen Cheatham Other Interventions: Discharge Summary Assessment (RN) Last Done: 08/31/24 10:42 Hospital Stay Data Consultations 08/25/24 15:26 ED Decision to Admit Stat 08/28/24 09:59 Consult Psychiatry Routine Diagnostic Imagining Performed Chest X-Ray 08/25/24 14:39 XR chest 1V portable HISTORY: 69 years-old Male Dyspnea COMPARISON: CTA chest 08/07/2024 TECHNIQUE: AP view of the chest FINDINGS: Cardiac silhouette is unchanged. Left subclavian pacer/AICD. Emphysema with chronic fibrotic changes. Mildly progressed when near bibasilar densities. No pneumothorax, pleural effusion or pulmonary edema. Bones appear grossly intact. IMPRESSION: Severe emphysema with mildly progressed ill-defined bibasilar densities which may represent atelectasis versus a mild pneumonitis. ACT 112: Negative or not required by law. The above report was generated using voice recognition software. It may contain grammatical, syntax or spelling errors. Electronically signed by: Ihsan Ratliff M.D. 08/25/2024 3:10 PM Chest X-Ray 08/26/24 10:35 XR chest 2V PA/lateral CLINICAL HISTORY: cough/SOB ?PNEUMONIA ?CHF TECHNIQUE: 2 views of the chest were obtained. Comparison: Comparison is made to chest radiograph 08/25/2024 FINDINGS: Pacemaker defibrillator is seen. Calcified aortic knob is seen. The lungs are clear apart from emphysema. Atelectasis is at the left lung base. No evidence of pleural effusion or pneumothorax. IMPRESSION: No acute abnormalities and in particular no radiographic evidence of pneumonia. ACT 112: Negative or not required by law. Electronically signed by: Akash Christianson M.D. 08/26/2024 11:21 AM Chest X-Ray 08/28/24 10:00 XR chest 2V PA/lateral CLINICAL HISTORY: Shortness of breath. COMPARISON STUDY: Chest CT August 07, 2024. Chest radiograph August 26, 2024. FINDINGS: A left subclavian pacer/AICD is in place. Cardiomediastinal silhouette is normal. There is no pneumothorax or pleural effusion. Severe emphysema is again noted. Lower lung densities favor atelectasis. There is no consolidation to suggest pneumonia. IMPRESSION: 1. No consolidation to suggest pneumonia. Linear bibasilar densities favor atelectasis. 2. Emphysema. ACT 112: Negative or not required by law. Electronically signed by: Mc Frausto M.D. 08/28/2024 11:28 AM Laboratory Results - last 72 hr 08/28/24 08/29/24 09:43 03:49 WBC 16.29 H RBC 4.34 L Hgb 13.0 L Hct 40.8 L MCV 94.0 MCH 30.0 MCHC 31.9 L RDW Std Deviation 52.0 H RDW Coeff of Renee 15.1 H Plt Count 309 MPV 9.5 Immature Gran % (Auto) 2.2 Neut % (Auto) 90.3 Lymph % (Auto) 2.8 Owsley % (Auto) 4.6 Eos % (Auto) 0.0 Baso % (Auto) 0.1 Neut # (Auto) 14.70 H Lymph # (Auto) 0.46 L Owsley # (Auto) 0.75 H Eos # (Auto) 0.00 Baso # (Auto) 0.02 Immature Gran # (Auto) 0.36 H Sodium 140 139 Potassium 4.2 4.3 Chloride 103 102 Carbon Dioxide 34 H 33 H Anion Gap 3 4 BUN 20 18 Creatinine 0.80 0.62 Est Cr Clr Drug Dosing 67.7 87.3 eGFR 95.21 102.83 BUN/Creatinine Ratio 25.0 H 29.0 H Glucose 106 H 101 H Estimat Average Glucose 108 Hemoglobin A1c 5.4 Calcium 9.0 8.9 Magnesium 1.9 2.1 B-Natriuretic Peptide 683 H Pending Results Patient Have Any Pending Studies at Discharge: No Discharge Instructions Given to Patient (Per Discharging Provider) DISCHARGE INSTRUCTION TO PATIENT/FAMILY: Follow-up with your primary care provider within 1 week regarding: Posthospital discharge, medication review, medication refills and follow-up on all your medical problems, LABS, Referral to outpatient Psychiatry, Discussion of outpatient CT Abdo/Pelvis vs EGD/Colonoscopy Please take all your discharge medications, discharge information and discharge instructions to all your doctors appointments. Avoid all NSAIDs including ibuprofen, Motrin, Advil, Aleve, naproxen, meloxicam, Toradol, diclofenac Please follow-up with your outpatient church organist at the [facility] in [place] regarding congestive heart failure in 1 to 2 weeks time Please follow-up with your outpatient college or university faculty member at the [facility] regarding COPD in 1 to 2 weeks time Please follow-up with your outpatient primary care provider through the [facility] regarding scheduling outpatient EGD/colonoscopy versus CT abdomen and pelvis to look for malignancy given the fact that you have lost a lot of weight unintentionally. You were seen by psychiatrist inpatient during hospital stay. You will benefit from an outpatient psychiatry referral through your PCP to address anxiety/PTSD PREDNISONE TAPER: see taper instructions: STARTING 09/01/12 TAKE 4 TABLETS (40 MG) DAILY FOR 3 DAYS, THEN 3 TABLETS (30 MG) DAILY FOR 3 DAYS, THEN 2 TABLETS (20 MG) DAILY FOR 3 DAYS, THEN 1 TABLET DAILY (10 MG) FOR 3 DAYS, THEN STOP. TAKE WITH FOOD Labs through PCP in 1 to 2 weeks: CBC, CMP, MG, VITAMIN D Total Time Total Time Spent Total Time Spent (In Minutes): 40 minutes Coding Level of Care Code 98357 INP/OBS DISCH >30 MIN Diagnoses Acute respiratory failure with hypoxia and hypercapnia J96.01; J96.02 Chronic HFrEF (heart failure with reduced ejection fraction) I50.22 Acute exacerbation of chronic obstructive pulmonary disease J44.[address] Z95.810 Compression fracture of T5 vertebra S22.050A Encounter type: initial encounter B12 deficiency E53.8
[2024-08-31 10:44] VITALS: BP 117/80; PULSE 82; RESP 20; O2SAT 94
== END 2024-08-31 11:45 | disposition home or self-care (01) | DRG 189 ==
LOC: ED 14:22 → 4W 16:41 → SUATTDRO 16:41 → 4W 17:36 → 3E 08-29 13:19